=== PATIENT | female | born 1930 | race Caucasian/White ===

== ENCOUNTER → 2016-10-26 | Outpatient (CLI) | payer OTHER ==
[~2016-10-26] MED LIST: ACET-1256 PO; ASPCH81X PO; ATOR10TA88 PO; BENZ100C84 PO; CALC1TAB27 PO; CHOL1000 PO; CLR10 PO; CYAN100020 PO; GABA1CAP PO; GLUC10007 PO; IBUP-103 PO; MELATAB2 PO; NAPR1TAB9 PO; OMEG10007 PO; TRAZ50TA35 PO
[2016-10-26 17:27] LABS: BASO % 0.5 %; BASO ABS # 0.03 K/uL (0-0.2); COMPLETE YES; EOS % 4.9 %; HEMATOCRIT 39.6 % (37-47); IG% 0.2 %; LYMPH % 10.8 %; LYMPH ABS # 0.66 K/uL (1.2-3.4); MEAN CELL VOLUME 88.4 fL (80-100); MEAN CORPUSCULAR HGB CONC 35.1 g/dl (32-36); MEAN PLATELET VOLUME 10.9 fL (7.4-10.4); MONO % 8.7 %; NEUT % 74.9 %; PLATELET COUNT 156 K/uL (130-400); RED BLOOD COUNT 4.48 M/uL (4.2-5.4); WHITE BLOOD COUNT 6.09 K/uL (4.8-10.8)
[2016-10-26 17:38] LABS: ALT/SGPT 27 U/L (12-78); AST/SGOT 20 U/L (15-37); BLOOD UREA NITROGEN 18 mg/dl (7-18); BUN/CREATININE RATIO 20.8 (10-20); CALCIUM 8.9 mg/dl (8.5-10.1); CARBON DIOXIDE 28 mmol/L (21-32); CHLORIDE 104 mmol/L (98-107); CREATININE 0.85 mg/dl (0.60-1.20); GLUCOSE 76 mg/dl (70-99); SODIUM 141 mmol/L (136-145)
[2016-10-26 17:48] LABS: ALB/GLOB RATIO 1.5 (0.9-2); ALKALINE PHOSPHATASE 47 U/L (45-117); CHOLESTEROL 163 mg/dl (0-200); CHOLESTEROL/HDL RATIO 1.9; HDL CHOLESTEROL 86 mg/dl; LDL CHOLESTEROL CALCULATED 64 mg/dl; TRIGLYCERIDES 67 mg/dl (0-150); VERY LOW DENSITY LIPOPROT CALC 13 mg/dl
[2016-10-27 06:14] LABS: ESTIMATED AVERAGE GLUCOSE 114 mg/dl; HA1C FLAG Normal (Normal)
== END | disposition home or self-care (01) ==
LOC: C.LABBFT 10:25
PROVIDERS: ATTEND Internal Medicine
DX: R19.4 Change in bowel habit (principal); E78.00 Pure hypercholesterolemia, unspecified; R73.01 Impaired fasting glucose; K59.00 Constipation, unspecified

== ENCOUNTER 2016-12-08 17:24 | Emergency (ER) | payer OTHER ==
[~2016-12-08] VITALS: Ht 171.5 cm; Wt 70.0 kg
[~2016-12-08 17:24] MED LIST changes: -ACET-1256 PO; +ATOR10TA82 PO; -ATOR10TA88 PO
[2016-12-08 17:30] VITALS: Ht 171.5 cm; Wt 70.0 kg
[2016-12-08] MEDS ORDERED: XYLOCAINE 1%/SOD BICARB 20 ML VIAL INFIL ONE (17:45)
--- NOTE | 2016-12-08 18:03 | EMERGENCY ROOM VISIT NOTE ---
History Report prepared by Elliott: Robert Romano Under the Supervision of: Dr. Carolyn Godoy D.O. First contact with patient: 17:50 Chief Complaint: FALL Stated Complaint: FALL - BROKEN NOSE? CUTS ON FACE AND ELBOW History of Present Illness The patient is an 86 year old female who presents to the Emergency Room with complaints of a sudden fall that occurred prior to arrival today. She states that she was coming through a doorway in her barn, and her foot hit a trough on the ground for water to drain, and she fell face forward onto the ground. Per the patient's daughter, the patient was able to walk to the car to be driven here. The patient has lacerations on her face and bilateral elbows from the fall , as well as right knee pain. She denies any loss of consciousness, dizziness, grogginess, vision problems, ringing in ears, neck pain, back pain, abdominal pain, or rib pain. The patient does take baby aspirin daily, but no other blood thinners. Source of History: patient, family Onset: Prior to arrival today Position: other (global - fall) Timing: other (sudden) Associated Symptoms: No LOC, No abdominal pain, No back pain, No neck pain Note: Associated symptoms: Lacerations to face and bilateral elbows, right knee pain. Denies dizziness, grogginess, vision problems, ringing in ears, rib pain. Review of Systems See HPI for pertinent positives & negatives. A total of 10 systems reviewed and were otherwise negative. Past Medical & Surgical Medical Problems: (1) section (2) Hysterectomy (3) Shoulder surgery (4) TIA (transient ischemic attack) Family History Family history omitted secondary to advanced age. Social History Smoking Status: Never Smoker Drug Use: none Marital Status: Occupation Status: retired Current/Historical Medications Scheduled Aspirin (Aspirin Chewable), 81 MG PO QPM Atorvastatin (Lipitor), 10 MG PO QPM Vglzpfi-Eulcsgdrh-Yrcb (Calcium Magnesium & Zinc), 1 TAB PO QAM Cholecalciferol (Vitamin D3), 1 TAB PO QAM Cyanocobalamin (Vitamin B12), 1 TAB PO QAM Fish Oil ([place]-3), 1 CAP PO QAM Scheduled PRN Acetaminophen (Tylenol), 500 MG PO DIRECTED PRN for Pain Gabapentin (Neurontin), 1-2 TAB PO HS PRN for Pain Loratadine (Claritin), 10 MG PO DAILY PRN for ALLERGY Melatonin (Melatonin Maximum Strengt), 1 TAB PO HS PRN for Sleep Allergies Coded Allergies: No Known Allergies (Verified , 12/08/16) Physical Exam Vital Signs Date Time Temp Pulse Resp B/P Pulse Ox O2 Delivery O2 Flow Rate FiO2 12/08/16 20:10 36.6 63 18 160/83 99 12/08/16 17:30 36.6 63 18 160/83 99 Room Air Physical Exam GENERAL: alert, well appearing, well nourished, no distress, non-toxic EYE EXAM: normal conjunctiva, PERRL and EOM's grossly intact OROPHARYNX: abrasion at bridge of nose, bleeding controlled, no other facial tenderness, contusions, or swelling NECK: supple, no nuchal rigidity, no adenopathy, no midline tenderness, no step- offs, no evidence of trauma LUNGS: Clear to auscultation. Normal chest wall mechanics HEART: no murmurs, S1 normal and S2 normal ABDOMEN: abdomen soft, non-tender, normo-active bowel sounds, no masses, no rebound or guarding. BACK: Back is symmetrical on inspection and there is no deformity, no midline tenderness, no CVA tenderness. SKIN: no rashes and no bruising UPPER EXTREMITIES: abrasion on right elbow, full range of motion bilateral upper extremities, no joint effusions LOWER EXTREMITIES: small prepatellar contusion on right knee, full range of motion, no effusions or deformities NEURO EXAM: Normal sensorium, cranial nerves II-XII grossly intact, normal speech, no gross weakness of arms, no gross weakness of legs. No drift. Finger to nose intact. Gross sensation intact. Medical Decision & Procedures ER Provider Diagnostic Interpretation: Xray results per the radiologist and my interpretation. Other results have been interpreted by the radiologist and reviewed by me. PELVIS 1 OR 2 VIEW ROUTINE CLINICAL HISTORY: fall, trauma COMPARISON STUDY: Pelvis 11/30/2014. FINDINGS: Moderate bilateral hip osteoarthritis which has progressed. The sacrum appears intact. No acute fracture or dislocation within the pelvis or hips. IMPRESSION: Moderate bilateral hip osteoarthritis. No acute fracture or dislocation. Electronically signed by: Elan Julian M.D. 12/08/2016 7:14 PM Dictated Date/Time: 12/08/2016 7:[address] DOSE: HISTORY: fall, trauma TECHNIQUE: Multiaxial CT images of the maxillofacial region were performed and reformatted in the coronal plane without the use of contrast. COMPARISON: Sinus CT 02/09/2011. FINDINGS: Slightly displaced/depressed nasal bone fractures. There is nasal soft tissue swelling with a small soft tissue laceration. Stable defect within the right anterior lamina preparation. This is likely postsurgical. The mandible, pterygoid plates, zygomatic arches, skull base, and orbital floors are intact. Paranasal sinuses show no fluid levels. The mastoid air cells are clear. Punctate foreign body of the left supraorbital soft tissues. This is best in image 92 of 475. The globes and retrobulbar fat are intact. IMPRESSION: Nasal bone fractures. Punctate foreign body at the left supraorbital soft tissues. Electronically signed by: Elan Julian M.D. 12/08/2016 6:55 PM Dictated Date/Time: 12/08/2016 6:53 PM RIGHT KNEE 2 VIEWS HISTORY: Right knee pain. fall, trauma Right COMPARISON: None. FINDINGS: There is no fracture or dislocation. Chondrocalcinosis and mild osteoarthritis. The bones are osteopenic. No knee effusion. Prepatellar soft tissue swelling. No radiopaque foreign bodies. IMPRESSION: Prepatellar soft tissue swelling. No fractures. Electronically signed by: Elan Julian M.D. 12/08/2016 7:17 PM Dictated Date/Time: 12/08/2016 7:[address]AST CT DOSE: HISTORY: fall, trauma TECHNIQUE: Multiaxial CT images of the head were performed without the use of intravenous contrast. Automated exposure control was utilized for this study. Comparison: Head CT 11/30/2014. Findings: The paranasal sinuses and mastoid air cells are clear. The calvarium and skull base are intact. There is no mass, hematoma, midline shift, acute infarct. White matter hypodensity is nonspecific but suggestive of microvascular ischemic change. The ventricles and sulci demonstrate mild age-related involutional changes. Impression: No significant change compared to the prior study. No acute intracranial abnormality. Electronically signed by: Elan Julian M.D. 12/08/2016 6:49 PM Dictated Date/Time: 12/08/2016 6:46 PM RIGHT ELBOW 3 VIEWS HISTORY: fall, trauma Right COMPARISON: None. FINDINGS: There is no fracture or dislocation. No significant elbow effusion. Soft tissues are unremarkable. Mild chondrocalcinosis. No radiopaque foreign bodies. IMPRESSION: No fracture or dislocation within the right elbow. Electronically signed by: Elan Julian M.D. 12/08/2016 7:15 PM Dictated Date/Time: 12/08/2016 7:14 PM CHEST ONE VIEW PORTABLE HISTORY: fall, trauma COMPARISON: Chest 10/14/2015. FINDINGS: Old, healed right-sided rib fractures. No pneumothorax. No pleural effusions. The heart is mildly enlarged. There is mild diffuse interstitial thickening which is likely chronic. No focal lung consolidations to suggest pneumonia. IMPRESSION: 1. Mild enlargement of the cardiac silhouette. 2. Mild diffuse interstitial thickening is likely chronic. Electronically signed by: Elan Julian M.D. 12/08/2016 7:16 PM Dictated Date/Time: 12/08/2016 7:[address] DOSE: 965.33 mGy.cm HISTORY: fall, trauma TECHNIQUE: Multiaxial CT images of the cervical spine were performed and reformatted in the sagittal and coronal plane without the use of contrast. COMPARISON: None. FINDINGS: No fractures. No subluxation. Prevertebral soft tissues and the C1-C2 interval are intact. No pneumothorax. Moderate to severe degenerative disc disease seen from C3 through C7 with endplate osteophytes. There is fusion of the C3-C4 vertebral bodies and facets. IMPRESSION: No fractures within the cervical spine. Electronically signed by: Elan Julian M.D. 12/08/2016 6:53 PM Dictated Date/Time: 12/08/2016 6:49 PM Medications Administered Medications (Trade) Dose Ordered Sig/Clemente Route Start Time Stop Time Status Last Admin Dose Admin Diphtheria/ Pertussis/Tetanus Vacc (Adacel Inj) 0.5 ml ONCE ONCE IM. 12/08/16 18:15 12/08/16 18:16 DC 12/08/16 19:23 0.5 ML Acetaminophen (Tylenol Tab) 650 mg NOW STAT PO 12/08/16 19:44 12/08/16 19:45 DC 12/08/16 20:08 650 MG ED Course 1754: The patient was evaluated in room C11B. A complete history and physical exam was performed. 1815: Ordered Adacel Inj 0.5 ml IM. 1930: Upon reevaluation, the patient is resting comfortably. I discussed the findings and the treatment plan with the patient. She verbalizes agreement and understanding. She was discharged home. 1943: Ordered Tylenol Tab 650 mg PO. Medical Decision Differential diagnoses include: nasal bone fracture, traumatic intracranial hemorrhage, contusion, laceration. Pt well appearing here despite injuries. Low suspicion for additional occult traumatic chest/abd/pelvic/spine injuries. Pt with nonfocal neuro exam. Discussed f/u with ENT regarding nasal bone fractures. No other ICH or facial injuries. Pt aware of all findings. Discussed sx to watch/return for, f/u with PCP. Offered pain meds, pt declined would like to take tylenol. Discussed avoidance of activities which could contribute to additional injury. Impression Primary Impression: Head injury Additional Impressions: Nasal bone fx-closed Contusion Abrasion Skin tear Fall Contusion of multiple sites Scribe Attestation The scribe's documentation has been prepared under my direction and personally reviewed by me in its entirety. I confirm that the note above accurately reflects all work, treatment, procedures, and medical decision making performed by me. Departure Information Dispostion Home / Self-Care Referrals Magdy Ma M.D. (PCP) Isaías Oliva MD Patient Instructions My [facility] Additional Instructions Please rest and avoid heavy lifting/strenuous activity until you are feeling better. You may use tylenol as needed. Do not blow your nose. Please follow- up with your family doctor to recheck your condition and follow-up with the ENT doctor about your nasal bone fracture. If you have any worsening headache, dizziness, vision changes, nausea/vomiting, develop fevers, facial swelling, chest pain, trouble breathing, numbness/tingling, swelling at your joints, or you have any other new or concerning symptoms, please return to the ER immediately. You may continue your regular medicines as prescribed. Problem Qualifiers Primary Impression: Head injury Encounter type: initial encounter Qualified Codes: S09.90XA - Unspecified injury of head, initial encounter Additional Impressions: Nasal bone fx-closed Encounter type: initial encounter Qualified Codes: S02.2XXA - Fracture of nasal bones, initial encounter for closed fracture Contusion Encounter type: initial encounter Contusion area: head Contusion of head detail: nose Qualified Codes: S00.33XA - Contusion of nose, initial encounter Fall Encounter type: initial encounter Qualified Codes: W19.XXXA - Unspecified fall, initial encounter
[2016-12-08] MEDS ORDERED: DIPHTHERIA/TETANUS/PERTUSSIS 0.5 ML SYR/VIAL IM. ONE (18:15)
--- NOTE | 2016-12-08 18:51 | DIAGNOSTIC IMAGING REPORT ---
HEAD CT NONCONTRAST CT DOSE: HISTORY: fall, trauma TECHNIQUE: Multiaxial CT images of the head were performed without the use of intravenous contrast. Automated exposure control was utilized for this study. Comparison: Head CT 11/30/2014. Findings: The paranasal sinuses and mastoid air cells are clear. The calvarium and skull base are intact. There is no mass, hematoma, midline shift, acute infarct. White matter hypodensity is nonspecific but suggestive of microvascular ischemic change. The ventricles and sulci demonstrate mild age-related involutional changes. Impression: No significant change compared to the prior study. No acute intracranial abnormality. Electronically signed by: Elan Julian M.D. 12/08/2016 6:49 PM Dictated Date/Time: 12/08/2016 6:46 PM
--- NOTE | 2016-12-08 18:55 | DIAGNOSTIC IMAGING REPORT ---
CERVICAL SPINE CT CT DOSE: 965.33 mGy.cm HISTORY: fall, trauma TECHNIQUE: Multiaxial CT images of the cervical spine were performed and reformatted in the sagittal and coronal plane without the use of contrast. COMPARISON: None. FINDINGS: No fractures. No subluxation. Prevertebral soft tissues and the C1-C2 interval are intact. No pneumothorax. Moderate to severe degenerative disc disease seen from C3 through C7 with endplate osteophytes. There is fusion of the C3-C4 vertebral bodies and facets. IMPRESSION: No fractures within the cervical spine. Electronically signed by: Elan Julian M.D. 12/08/2016 6:53 PM Dictated Date/Time: 12/08/2016 6:49 PM
--- NOTE | 2016-12-08 18:58 | DIAGNOSTIC IMAGING REPORT ---
MAXILLOFACIAL CT CT DOSE: HISTORY: fall, trauma TECHNIQUE: Multiaxial CT images of the maxillofacial region were performed and reformatted in the coronal plane without the use of contrast. COMPARISON: Sinus CT 02/09/2011. FINDINGS: Slightly displaced/depressed nasal bone fractures. There is nasal soft tissue swelling with a small soft tissue laceration. Stable defect within the right anterior lamina preparation. This is likely postsurgical. The mandible, pterygoid plates, zygomatic arches, skull base, and orbital floors are intact. Paranasal sinuses show no fluid levels. The mastoid air cells are clear. Punctate foreign body of the left supraorbital soft tissues. This is best in image 92 of 475. The globes and retrobulbar fat are intact. IMPRESSION: Nasal bone fractures. Punctate foreign body at the left supraorbital soft tissues. Electronically signed by: Elan Julian M.D. 12/08/2016 6:55 PM Dictated Date/Time: 12/08/2016 6:53 PM
[2016-12-08] MEDS ORDERED: ACET-1256 PO (19:04)
--- NOTE | 2016-12-08 19:17 | DIAGNOSTIC IMAGING REPORT ---
PELVIS 1 OR 2 VIEW ROUTINE CLINICAL HISTORY: fall, trauma COMPARISON STUDY: Pelvis 11/30/2014. FINDINGS: Moderate bilateral hip osteoarthritis which has progressed. The sacrum appears intact. No acute fracture or dislocation within the pelvis or hips. IMPRESSION: Moderate bilateral hip osteoarthritis. No acute fracture or dislocation. Electronically signed by: Elan Julian M.D. 12/08/2016 7:14 PM Dictated Date/Time: 12/08/2016 7:12 PM
--- NOTE | 2016-12-08 19:18 | DIAGNOSTIC IMAGING REPORT ---
RIGHT ELBOW 3 VIEWS HISTORY: fall, trauma Right COMPARISON: None. FINDINGS: There is no fracture or dislocation. No significant elbow effusion. Soft tissues are unremarkable. Mild chondrocalcinosis. No radiopaque foreign bodies. IMPRESSION: No fracture or dislocation within the right elbow. Electronically signed by: Elan Julian M.D. 12/08/2016 7:15 PM Dictated Date/Time: 12/08/2016 7:14 PM
--- NOTE | 2016-12-08 19:19 | DIAGNOSTIC IMAGING REPORT ---
RIGHT KNEE 2 VIEWS HISTORY: Right knee pain. fall, trauma Right COMPARISON: None. FINDINGS: There is no fracture or dislocation. Chondrocalcinosis and mild osteoarthritis. The bones are osteopenic. No knee effusion. Prepatellar soft tissue swelling. No radiopaque foreign bodies. IMPRESSION: Prepatellar soft tissue swelling. No fractures. Electronically signed by: Elan Julian M.D. 12/08/2016 7:17 PM Dictated Date/Time: 12/08/2016 7:16 PM
--- NOTE | 2016-12-08 19:19 | DIAGNOSTIC IMAGING REPORT ---
CHEST ONE VIEW PORTABLE HISTORY: fall, trauma COMPARISON: Chest 10/14/2015. FINDINGS: Old, healed right-sided rib fractures. No pneumothorax. No pleural effusions. The heart is mildly enlarged. There is mild diffuse interstitial thickening which is likely chronic. No focal lung consolidations to suggest pneumonia. IMPRESSION: 1. Mild enlargement of the cardiac silhouette. 2. Mild diffuse interstitial thickening is likely chronic. Electronically signed by: Elan Julian M.D. 12/08/2016 7:16 PM Dictated Date/Time: 12/08/2016 7:15 PM
[2016-12-08] MEDS ORDERED: ACETAMINOPHEN 500 MG TAB PO STA (19:44)
[2016-12-08 20:10] VITALS: BP 160/83; PULSE 63; TEMP 36.6; O2SAT 99
== END 2016-12-08 20:11 | disposition home or self-care (01) ==
LOC: C.EDB 17:27 → C.EDC 20:11
DX: S02.2XXA Fracture of nasal bones, initial encounter for closed fracture (principal); S00.33XA Contusion of nose, initial encounter; S00.31XA Abrasion of nose, initial encounter; S80.01XA Contusion of right knee, initial encounter; S50.311A Abrasion of right elbow, initial encounter; W01.0XXA Fall on same level from slipping, tripping and stumbling without subsequent striking against object, initial encounter; Y92.71 Barn as the place of occurrence of the external cause; Z86.73 Personal history of transient ischemic attack (TIA), and cerebral infarction without residual deficits; Z79.82 Long term (current) use of aspirin; Z79.899 Other long term (current) drug therapy

== ENCOUNTER → 2016-12-14 | Outpatient (CLI) | payer OTHER ==
[~2016-12-14] MED LIST changes: +ACET-1256 PO; -BENZ100C84 PO; -GLUC10007 PO; -IBUP-103 PO; -NAPR1TAB9 PO; -TRAZ50TA35 PO
--- NOTE | 2016-12-14 10:04 | DIAGNOSTIC IMAGING REPORT ---
LEFT KNEE 2 VIEWS CLINICAL HISTORY: Left knee pain. FINDINGS: AP and crosstable lateral views of the left knee are obtained. No prior studies are available for comparison at the time of dictation. The skeletal structures are osteopenic. No fracture is seen. Mild to moderate tricompartmental degenerative joint space narrowing is noted, greatest at the patellofemoral articulation. There are small patellar enthesophytes as well as degenerative beaking of the tibial spine. Chondrocalcinosis is noted in the medial and lateral compartments. A joint effusion is identified. Mild soft tissue swelling is observed. Atherosclerotic calcification is noted in the popliteal artery. IMPRESSION: 1. Joint effusion and mild soft tissue swelling. No fracture is seen. 2. Osteopenia with degenerative change and chondrocalcinosis as above. Electronically signed by: Dusty Carballo M.D. 12/14/2016 10:02 AM Dictated Date/Time: 12/14/2016 10:00 AM
--- NOTE | 2016-12-14 10:06 | DIAGNOSTIC IMAGING REPORT ---
RIGHT HAND MIN 3 VIEWS ROUTINE CLINICAL HISTORY: Right hand pain following fall. COMPARISON: Right wrist radiographs September 18, 2007. FINDINGS: An old, healed distal right radial fracture is present. There is an old nonunited fracture of the ulnar styloid. There is an acute minimally displaced fracture of the base of the proximal phalanx of the right fifth finger with intra-articular extension. Radiocarpal joint space narrowing with chondrocalcinosis is noted. There is severe osteoarthritis within the distal interphalangeal joints of the second, third, fourth and fifth fingers. IMPRESSION: 1. Acute minimally displaced fracture of the base of the proximal phalanx of right fifth finger. 2. Old distal right radial and ulnar fractures. 3. Severe osteoarthritis within multiple articulations of the right hand. 4. Joint space narrowing with chondrocalcinosis within the TFCC which raises the possibility of CPPD arthropathy. Electronically signed by: Bakari Matthews M.D. 12/14/2016 10:03 AM Dictated Date/Time: 12/14/2016 10:00 AM
== END | disposition home or self-care (01) ==
LOC: C.RAD 09:23
PROVIDERS: ATTEND Nurse Practitioner
DX: M79.641 Pain in right hand (principal); M25.569 Pain in unspecified knee; W01.0XXA Fall on same level from slipping, tripping and stumbling without subsequent striking against object, initial encounter

== ENCOUNTER → 2017-01-03 | Outpatient (CLI) | payer OTHER | LOC: C.MAMM 13:17 | PROVIDERS: ATTEND Nurse Practitioner | DX: M81.0 Age-related osteoporosis without current pathological fracture (principal) ==

== ENCOUNTER → 2017-03-10 | Outpatient (CLI) | payer OTHER ==
[~2017-03-10] MED LIST changes: -ATOR10TA82 PO; +ATOR10TA88 PO
--- NOTE | 2017-03-10 15:06 | DIAGNOSTIC IMAGING REPORT ---
THORACIC SPINE 3 VIEWS ROUTINE CLINICAL HISTORY: 87 years-old Female presenting with low back pain. TECHNIQUE: Frontal and lateral views of the thoracic spine were obtained. COMPARISON: Correlation made to chest CT from 03/18/2015. FINDINGS: Multilevel degenerative changes of the thoracic spine primarily affecting the mid to lower thoracic region. Vertebral body heights and alignment are grossly maintained. No compression deformity or subluxation is radiographically evident. Cardiomediastinal silhouette normal. Visualized portion of the lungs and pleural spaces clear. IMPRESSION: No radiographic evidence of acute osseous injury of the thoracic spine. Multilevel degenerative changes. Electronically signed by: Jm Allen M.D. 03/10/2017 3:04 PM Dictated Date/Time: 03/10/2017 3:01 PM
--- NOTE | 2017-03-10 15:07 | DIAGNOSTIC IMAGING REPORT ---
L-SPINE MIN 4 VIEWS ROUTINE HISTORY: 87 years-old Female M54.5 Low back pain COMPARISON: Lumbar spine radiographs 10/10/2012 TECHNIQUE: 5 radiographic views of the lumbar spine. FINDINGS: There are 5 nonrib-bearing lumbar type vertebral segments. Convex left curvature of the lumbar spine redemonstrated. There is progressive bone demineralization from prior exam. Moderate degenerative changes involve the femoral acetabular joints bilaterally. Severe multilevel intervertebral disc space narrowing, endplate spurring and facet arthropathy is noted. There is unchanged compression deformity of the L1 vertebral body. 4 mm anterolisthesis of L4 on L5 is likely on a degenerative basis. There is no significant change from comparison study. Moderate volume of formed stool seen within the right hemicolon. IMPRESSION: 1. No acute fracture or dislocation identified. 2. Levoscoliosis. 3. Redemonstration of severe multilevel intervertebral disc space narrowing, spondylitic spurring and facet arthropathy with remote subtle compression deformity of the L1 vertebral body. The above report was generated using voice recognition software. It may contain grammatical, syntax or spelling errors. Electronically signed by: Perfecto Sam M.D. 03/10/2017 3:06 PM Dictated Date/Time: 03/10/2017 3:02 PM
== END | disposition home or self-care (01) ==
LOC: C.RAD1850 14:39
PROVIDERS: ATTEND Internal Medicine
DX: M54.5 Low back pain (principal)

== ENCOUNTER → 2017-06-22 | Outpatient (CLI) | payer OTHER ==
[~2017-06-22] MED LIST changes: +ATOR10TA82 PO; -ATOR10TA88 PO
--- NOTE | 2017-06-22 14:45 | DIAGNOSTIC IMAGING REPORT ---
Rj SALGADOT SHLDR,HIP,KNEE FLUOROSCOPY TIME: 16 seconds HISTORY: Chronic left hip pain.. PROCEDURE: After obtaining written informed consent, the patient was placed supine on the fluoroscopy table. A suitable site for needle insertion was marked using fluoroscopic guidance. The left hip was prepped and draped in the usual sterile fashion. 1% lidocaine was used for skin, subcutaneous and deep soft tissue anesthesia. Under intermittent fluoroscopic guidance, a 22 gauge x 3.5 inch spinal needle was inserted into the left femoral acetabular joint. 2 cc of Optiray 300 was injected to confirm the intra-articular location. This is followed by a mixture of 5cc of 0.5% bupivacaine and 2 cc of betamethasone at the request of the referring physician. The needle was then removed. There were no apparent complications. IMPRESSION: Fluoroscopic-guided left hip steroid injection without immediate complication. The above report was generated using voice recognition software. It may contain grammatical, syntax or spelling errors. Electronically signed by: Perfecto Sam M.D. 06/22/2017 2:44 PM Dictated Date/Time: 06/22/2017 2:43 PM
== END | disposition home or self-care (01) ==
LOC: C.RADBC 13:27
PROVIDERS: ATTEND Orthopaedic Surgery
DX: M16.12 Unilateral primary osteoarthritis, left hip (principal)

== ENCOUNTER → 2017-07-07 | Outpatient (CLI) | payer OTHER ==
--- NOTE | 2017-07-07 12:51 | DIAGNOSTIC IMAGING REPORT ---
CHEST 2 VIEWS ROUTINE HISTORY: 87 years-old Female J98.01 Acute [id number] acute cough with shortness of breath COMPARISON: Chest radiograph 12/08/2016, chest CT 03/18/2015 TECHNIQUE: PA and lateral views of the chest FINDINGS: Lungs are hyperinflated with diaphragmatic flattening. Cardiomediastinal and hilar silhouettes are within normal limits. There is no pneumothorax or pleural effusion. Reticular opacities, most pronounced within the lung bases are stable compatible with chronic changes. Dextroscoliosis of the thoracic spine is noted. There are postsurgical changes of the left humerus. Multilevel endplate spurring of the spine. IMPRESSION: Chronic changes without acute cardiopulmonary process. The above report was generated using voice recognition software. It may contain grammatical, syntax or spelling errors. Electronically signed by: Perfecto Sam M.D. 07/07/2017 12:49 PM Dictated Date/Time: 07/07/2017 12:47 PM
== END | disposition home or self-care (01) ==
LOC: C.RADBC 12:30
PROVIDERS: ATTEND Physician Assistant Medical
DX: J98.01 Acute bronchospasm (principal)

== ENCOUNTER → 2017-08-10 | Outpatient (CLI) | payer OTHER ==
[~2017-08-10] MED LIST changes: +ATRINS INH; +AZIT250T PO; +BENZ100C7 PO; +COUGH MEDICINE PO; +MELO7.5T5 PO; +PRVHFAIN INH; +SYMBICORT INH; +VFND200 PO; +VNTHFA/IN INH
--- NOTE | 2017-08-10 11:22 | DIAGNOSTIC IMAGING REPORT ---
(CHEST) THORAX WITHOUT CT DOSE: 373.33 mGycm CLINICAL HISTORY: 87 years-old Female with R05 [id number] Abnormal chest xrayPt is scheduled for hip surger. Acute cough . Pleural thickening or loculated fluid discussed on comparison chest radiographs TECHNIQUE: Multiaxial CT images of the chest were performed without contrast. A dose lowering technique was utilized adhering to the principles of ALARA. COMPARISON: CT chest 03/18/2015 chest radiographs 08/07/2017. FINDINGS: Thyroid is homogeneous. Calcified lymph nodes throughout the mediastinum and kashif suggest prior lumbar disc disease. Nonspecific mildly prominent left hilar and pretracheal lymph nodes measure up to 8 mm. A large subcarinal lymph node measures 1.2 x 1.4 cm. These findings appear generally stable from comparison study with moderate enlargement of the pretracheal lymph node, previous measuring 6 mm. These findings are nonspecific. Heart is normal in size with coronary arterial calcifications. Aortic annular calcifications also noted. No aortic aneurysm identified. Multifocal multilobar bilateral subpleural reticular opacities suggest areas of chronic fibrosis suggest likely progressed from comparison. There are patchy groundglass opacities noted throughout the right upper and lower lobes. There is opacification of the right middle lobe bronchus with complete collapse of the right middle lobe. This accounts for the finding seen on comparison radiographs. The main central airways are patent. No acute amount of the imaged upper abdomen. Colonic diverticulosis. Splenic parenchymal calcifications. Moderate atrophy of the left subscapularis musculature. No suspicious lytic or blastic bony lesions. IMPRESSION: 1. Opacification of the right middle lobe bronchus with complete collapse of the right middle lobe accounts for the finding seen on comparison chest radiographs. Correlation with bronchoscopy recommended to exclude obstructing endobronchial lesion. 2. Patchy groundglass opacities of the right upper and lower lobes suggests infectious or inflammatory pneumonitis. 3. Progressive bilateral multilobar distribution of subpleural reticulation suggests fibrotic lung disease. 4. Prior granulomatous disease. Electronically signed by: Perfecto Sam M.D. 08/10/2017 11:21 AM Dictated Date/Time: 08/10/2017 11:09 AM
== END | disposition home or self-care (01) ==
LOC: C.CTS 10:33
PROVIDERS: ATTEND Nurse Practitioner
DX: R91.8 Other nonspecific abnormal finding of lung field (principal); R05 Cough; R93.8 Abnormal findings on diagnostic imaging of other specified body structures

== ENCOUNTER 2017-08-11 13:54 | Inpatient (IN) | payer OTHER ==
[~2017-08-11] VITALS: Ht 170.2 cm; Wt 70.7 kg
[~2017-08-11 13:54] MED LIST changes: -ATRINS INH; -AZIT250T PO; -BENZ100C7 PO; -VFND200 PO; -VNTHFA/IN INH
[2017-08-11] MEDS ORDERED: IPRATROPIUM BROMIDE NEB SOLN 0.02% 2.5 ML VIAL INH STA (14:09)
[2017-08-11] MEDS ORDERED: CEFEPIME IV 2,000 MG in DEXTROSE 5% 100ML 100 ML IV STA (14:09)
[2017-08-11] MEDS ORDERED: LEVALBUTEROL 1.25MG/0.5ML NEB INH STA (14:09)
--- NOTE | 2017-08-11 14:23 | EMERGENCY ROOM VISIT NOTE ---
History Report prepared by Elliott: Adriel Enrique Under the Supervision of: Dr. Dusty Kinney M.D. First contact with patient: 14:05 Chief Complaint: SHORTNESS OF BREATH Stated Complaint: LUNGS/SHORT OF BREATH/ PAINFUL! History of Present Illness The patient is a 87 year old female who presents to the Emergency Room with complaints of worsening shortness of breath beginning five weeks ago. She also complains of right chest pain and cough. The patient has been seen by her PCP for her symptoms several times within the past few weeks. She notes that she received a chest CT two days ago. She called her PCP today and was advised to present to the ED for evaluation. The patient was previously on antibiotics three weeks ago for her symptoms. She was on steroids during the first week of her illness as well. The patient denies any fevers, chills, or diaphoresis. She has had a decreased appetite recently. Source of History: patient Onset: Five weeks ago Quality: other (shortness of breath) Timing: other (persistent) Associated Symptoms: + cough, + chest pain (right), No fevers, No chills, No diaphoresis Review of Systems See HPI for pertinent positives & negatives. A total of 10 systems reviewed and were otherwise negative. Past Medical & Surgical Medical Problems: (1) section (2) Hysterectomy (3) Shoulder surgery (4) TIA (transient ischemic attack) Family History No pertinent family history stated. Social History Smoking Status: Never Smoker Drug Use: none Marital Status: Occupation Status: retired Current/Historical Medications Scheduled Albuterol (Ventolin Hfa), 2 PUFFS INH PRN Aspirin (Aspirin Chewable), 81 MG PO QPM Atorvastatin (Lipitor), 10 MG PO QPM Tdkjcxf-Dcinnrsei-Wpmk (Calcium Magnesium & Zinc), 1 TAB PO NOON Cholecalciferol (Vitamin D3), 1 TAB PO QAM Cyanocobalamin (Vitamin B12), 1 TAB PO QAM Fish Oil (Hemphill-3), 1 CAP PO QAM Gabapentin (Neurontin), 400 MG PO HS Meloxicam (Mobic), 7.5 MG PO QAM Scheduled PRN Acetaminophen (Tylenol), 500 MG PO DIRECTED PRN for Pain Albuterol Hfa (Ventolin Hfa), 2 PUFFS INH QID PRN for SOB/Wheezing Benzonatate (Benzonatate), 1-2 CAP PO TID PRN for Cough Loratadine (Claritin), 10 MG PO DAILY PRN for ALLERGY Melatonin (Melatonin Maximum Strengt), 1 TAB PO HS PRN for Sleep Allergies Coded Allergies: No Known Allergies (Verified , 08/11/17) Physical Exam Vital Signs Date Time Temp Pulse Resp B/P (MAP) Pulse Ox O2 Delivery O2 Flow Rate FiO2 08/11/17 17:42 72 23 94 Room Air 08/11/17 17:31 165/89 08/11/17 17:12 70 16 94 Room Air 08/11/17 17:07 72 18 95 Room Air 08/11/17 17:02 155/95 08/11/17 16:50 75 24 94 Room Air 08/11/17 16:31 151/91 08/11/17 16:20 78 23 94 Room Air 08/11/17 16:15 76 21 95 Room Air 08/11/17 16:01 158/82 08/11/17 15:45 69 17 94 Room Air 08/11/17 15:32 163/82 08/11/17 15:25 173/89 08/11/17 15:23 76/68 08/11/17 15:10 68 20 134/76 96 Room Air 08/11/17 15:06 65 08/11/17 14:40 64 16 96 Room Air 08/11/17 14:10 94 Room Air 08/11/17 14:02 36.5 67 20 158/92 96 Room Air Physical Exam GENERAL: Patient is in no acute distress. HEENT: No acute trauma, normocephalic atraumatic, mucous membranes moist, no nasal congestion, no scleral icterus. NECK: No stridor, no adenopathy, no meningismus, trachea is midline. LUNGS: Wheezing and rhonchi on the right. Left lung fairly clear. Moist cough noted. No respiratory distress. HEART: Without murmurs gallops or rubs, regular rate and rhythm. ABDOMEN: Soft, nontender, bowel sounds positive, no hernias, no peritonitis. EXTREMITIES: No cyanosis or edema, full range of motion of all the joints without pain or difficulty, no signs for acute trauma. NEUROLOGIC: Oriented x 3, no acute motor or sensory deficits, no focal weakness. SKIN: No rash, no jaundice, no diaphoresis. Medical Decision & Procedures ER Provider Diagnostic Interpretation: Radiology results as stated below per my review and radiologist interpretation: (CHEST) THORAX WITHOUT (08/10/2017 - Yesterday) FINDINGS: Thyroid is homogeneous. Calcified lymph nodes throughout the mediastinum and kashif suggest prior lumbar disc disease. Nonspecific mildly prominent left hilar and pretracheal lymph nodes measure up to 8 mm. A large subcarinal lymph node measures 1.2 x 1.4 cm. These findings appear generally stable from comparison study with moderate enlargement of the pretracheal lymph node, previous measuring 6 mm. These findings are nonspecific. Heart is normal in size with coronary arterial calcifications. Aortic annular calcifications also noted. No aortic aneurysm identified. Multifocal multilobar bilateral subpleural reticular opacities suggest areas of chronic fibrosis suggest likely progressed from comparison. There are patchy groundglass opacities noted throughout the right upper and lower lobes. There is opacification of the right middle lobe bronchus with complete collapse of the right middle lobe. This accounts for the finding seen on comparison radiographs. The main central airways are patent. No acute amount of the imaged upper abdomen. Colonic diverticulosis. Splenic parenchymal calcifications. Moderate atrophy of the left subscapularis musculature. No suspicious lytic or blastic bony lesions. IMPRESSION: 1. Opacification of the right middle lobe bronchus with complete collapse of the right middle lobe accounts for the finding seen on comparison chest radiographs. Correlation with bronchoscopy recommended to exclude obstructing endobronchial lesion. 2. Patchy groundglass opacities of the right upper and lower lobes suggests infectious or inflammatory pneumonitis. 3. Progressive bilateral multilobar distribution of subpleural reticulation suggests fibrotic lung disease. 4. Prior granulomatous disease. Electronically signed by: Perfecto Sam M.D. 08/10/2017 11:21 AM CHEST ONE VIEW PORTABLE FINDINGS: Cardiomediastinal silhouette normal. Previous study demonstrated right middle lobe collapse better appreciated on prior CT from 08/10/2017. Degenerative changes of the thoracic spine. 2 fixation anchors noted in the left humeral head. Upper abdomen normal. IMPRESSION: 1. No acute cardiopulmonary disease. Electronically signed by: Jm Allen M.D. 08/11/2017 2:38 PM Laboratory Results 08/11/17 14:38 Red Blood Count 4.17, Mean Corpuscular Volume 91.1, Mean Corpuscular Hemoglobin 31.7, Mean Corpuscular Hemoglobin Concent 34.7, Mean Platelet Volume 10.6, Neutrophils (%) (Auto) 38.6, Lymphocytes (%) (Auto) 26.4, Monocytes (%) (Auto) 7.8, Eosinophils (%) (Auto) 26.1, Basophils (%) (Auto) 0.8, Neutrophils # (Auto ) 1.54, Lymphocytes # (Auto) 1.05, Monocytes # (Auto) 0.31, Eosinophils # (Auto ) 1.04, Basophils # (Auto) 0.03 08/11/17 14:38 Test 08/11/17 14:28 08/11/17 14:38 Influenza Type A Antigen Neg for Influ A (NEG) Influenza Type B Antigen Neg for Influ B (NEG) White Blood Count 3.98 K/uL (4.8-10.8) Red Blood Count 4.17 M/uL (4.2-5.4) Hemoglobin 13.2 g/dL (12.0-16.0) Hematocrit 38.0 % (37-47) Mean Corpuscular Volume 91.1 fL (80-100) Mean Corpuscular Hemoglobin 31.7 pg (25-34) Mean Corpuscular Hemoglobin Concent 34.7 g/dl (32-36) Platelet Count 145 K/uL (130-400) Mean Platelet Volume 10.6 fL (7.4-10.4) Neutrophils (%) (Auto) 38.6 % Lymphocytes (%) (Auto) 26.4 % Monocytes (%) (Auto) 7.8 % Eosinophils (%) (Auto) 26.1 % Basophils (%) (Auto) 0.8 % Neutrophils # (Auto) 1.54 K/uL (1.4-6.5) Lymphocytes # (Auto) 1.05 K/uL (1.2-3.4) Monocytes # (Auto) 0.31 K/uL (0.11-0.59) Eosinophils # (Auto) 1.04 K/uL (0-0.5) Basophils # (Auto) 0.03 K/uL (0-0.2) RDW Standard Deviation 44.5 fL (36.4-46.3) RDW Coefficient of Variation 13.5 % (11.5-14.5) Immature Granulocyte % (Auto) 0.3 % Immature Granulocyte # (Auto) 0.01 K/uL (0.00-0.02) Prothrombin Time 10.2 SECONDS (9.0-12.0) Prothromb Time International Ratio 1.0 (0.9-1.1) Activated Partial Thromboplast Time 23.6 SECONDS (21.0-31.0) Partial Thromboplastin Ratio 0.9 Anion Gap 6.0 mmol/L (3-11) Est Creatinine Clear Calc Drug Dose 45.8 ml/min Estimated GFR () 74.6 Estimated GFR (Non- 64.4 BUN/Creatinine Ratio 19.8 (10-20) Calcium Level 9.1 mg/dl (8.5-10.1) Magnesium Level 2.2 mg/dl (1.8-2.4) Total Bilirubin 0.4 mg/dl (0.2-1) Aspartate Amino Transf (AST/SGOT) 17 U/L (15-37) Alanine Aminotransferase (ALT/SGPT) 23 U/L (12-78) Alkaline Phosphatase 49 U/L (45-117) Troponin I < 0.015 ng/ml (0-0.045) Pro-B-Type Natriuretic Peptide 289 pg/ml (0-1800) Total Protein 6.6 gm/dl (6.4-8.2) Albumin 3.9 gm/dl (3.4-5.0) Globulin 2.7 gm/dl (2.5-4.0) Albumin/Globulin Ratio 1.5 (0.9-2) Laboratory results reviewed by me. Medications Administered Medications (Trade) Dose Ordered Sig/Clemente Route Start Time Stop Time Status Last Admin Dose Admin Cefepime HCl 2000 mg/Dextrose 112.5 ml @ 200 mls/hr ONE STAT IV 08/11/17 14:09 08/11/17 14:42 DC 08/11/17 14:59 200 MLS/HR Levalbuterol (Xopenex 1.25MG/ 0.5ML Neb) 1.25 mg NOW STAT INH 08/11/17 14:09 08/11/17 14:16 DC 08/11/17 14:38 1.25 MG Ipratropium Humble (Atrovent 0.02% 0.5MG/2.5ML Neb) 0.5 mg NOW STAT INH 08/11/17 14:09 08/11/17 14:16 DC 08/11/17 14:38 0.5 MG ECG Indication: SOB/dyspnea Rate (beats per minute): 64 Rhythm: sinus rhythm Findings: 1st degree AV block, no acute ischemic change, no ectopy ED Course 1406: The patient was evaluated in room C11B. A complete history and physical exam was performed. 1409: Ordered Atrovent 0.02% 0.5 mg/2.5 mL Neb 0.5 mg INH, Xopenex 1.25 mg/0.5 mL Neb 1.25 mg INH, Cefepime HCl 2000 mg/Dextrose 112.5 mL @ 200 mL/hr IV. 1525: Upon reexamination the patient is resting comfortably. I discussed results and treatment plan with the patient. She verbalizes agreement and understanding. I spoke with Dr. Romina EGAN Hospitalist Service. We discussed the patient's results and findings. The patient will be evaluated by [facility] for further management. Medical Decision The patient is a 87 year old female who presents to the ED with complaints of shortness of breath beginning five weeks ago. Differential diagnoses considered include pneumonia, bronchitis, malignancy, failed outpatient treatment, cardiac ischemia, anemia and electrolyte imbalance. There is no leukocytosis or concerning anemia. No significant electrolyte abnormality, kidney failure, hepatitis. There is no coagulopathy. Influenza testing is negative. Blood cultures are pending. EKG shows a sinus rhythm, no acute ischemia. Cardiac enzyme testing times one is not consistent with acute cardiac injury. Chest film does not show any obvious pneumonia or CHF. On review of the CT of the chest from yesterday, she has some right lung collapse and pneumonitis as well as some bronchial congestion. Malignancy underlying was raised as a possibility. The patient has been sick for over 1 month. She is failing outpatient treatment. She has been on antibiotics and steroids. I think a hospital stay is warranted. She needs a pulmonary consult and likely a bronchoscopy. The patient was given a DuoNeb, she received IV antibiotics. I did speak with the patient and case management. The on-call hospitalist was consulted. Medication Reconcilliation Current Medication List: was personally reviewed by me Blood Pressure Screening Patient's blood pressure: Elevated blood pressure Blood pressure disposition: Elevated BP felt to be situational Consults Time Called: 1520 Consulting Physician: Dr. Romina Joseph [facility] Returned Call: 1525 Discussed the patient's case. The patient will be evaluated for further management. Impression Primary Impression: Pneumonia Additional Impressions: Lung collapse Failure of outpatient treatment Scribe Attestation The scribe's documentation has been prepared under my direction and personally reviewed by me in its entirety. I confirm that the note above accurately reflects all work, treatment, procedures, and medical decision making performed by me. Departure Information Dispostion Being Evaluated By Hospitalist Referrals Ora Matthews M.D. (PCP) Patient Instructions My [facility] Problem Qualifiers
--- NOTE | 2017-08-11 14:39 | DIAGNOSTIC IMAGING REPORT ---
CHEST ONE VIEW PORTABLE CLINICAL HISTORY: 87 years-old Female presenting with EVALUATE RESPIRATORY DISTRESS.DYSPNEA. TECHNIQUE: Portable upright AP view of the chest was obtained. COMPARISON: 08/07/2017. FINDINGS: Cardiomediastinal silhouette normal. Previous study demonstrated right middle lobe collapse better appreciated on prior CT from 08/10/2017. Degenerative changes of the thoracic spine. 2 fixation anchors noted in the left humeral head. Upper abdomen normal. IMPRESSION: 1. No acute cardiopulmonary disease. Electronically signed by: Jm Allen M.D. 08/11/2017 2:38 PM Dictated Date/Time: 08/11/2017 2:26 PM
[2017-08-11 14:40] VITALS: PULSE 64; O2SAT 96
[2017-08-11 14:53] LABS: BASO % 0.8 %; BASO ABS # 0.03 K/uL (0-0.2); EOS % 26.1 %; EOS ABS # 1.04 K/uL (0-0.5); HEMOGLOBIN 13.2 g/dL (12.0-16.0); IG# 0.01 K/uL (0.00-0.02); LYMPH % 26.4 %; LYMPH ABS # 1.05 K/uL (1.2-3.4); MEAN CELL VOLUME 91.1 fL (80-100); MEAN CORPUSCULAR HEMOGLOBIN 31.7 pg (25-34); MEAN CORPUSCULAR HGB CONC 34.7 g/dl (32-36); MEAN PLATELET VOLUME 10.6 fL (7.4-10.4); MONO % 7.8 %; MONO ABS # 0.31 K/uL (0.11-0.59); NEUT % 38.6 %; NEUT ABS # 1.54 K/uL (1.4-6.5); PLATELET COUNT 145 K/uL (130-400); RED CELL DISTRIBUTION WIDTH CV 13.5 % (11.5-14.5); RED CELL DISTRIBUTION WIDTH SD 44.5 fL (36.4-46.3); WHITE BLOOD COUNT 3.98 K/uL (4.8-10.8)
[2017-08-11] MEDS ORDERED: BENZ100C7 PO (14:58)
[2017-08-11] MEDS ORDERED: VNTHFA/IN INH (14:58)
[2017-08-11 15:01] LABS: PTT PATIENT 23.6 SECONDS (21.0-31.0)
[2017-08-11 15:12] LABS: ALBUMIN 3.9 gm/dl (3.4-5.0); ALT/SGPT 23 U/L (12-78); BLOOD UREA NITROGEN 16 mg/dl (7-18); CALCIUM 9.1 mg/dl (8.5-10.1); CARBON DIOXIDE 27 mmol/L (21-32); CREATININE 0.81 mg/dl (0.60-1.20); GLUCOSE 79 mg/dl (70-99); POTASSIUM 4.4 mmol/L (3.5-5.1); SODIUM 135 mmol/L (136-145)
[2017-08-11 15:14] LABS: INFLUENZA B ANTIGEN Neg for Influ B (NEG)
[2017-08-11 15:17] LABS: ALKALINE PHOSPHATASE 49 U/L (45-117); AST/SGOT 17 U/L (15-37); TOTAL PROTEIN 6.6 gm/dl (6.4-8.2)
[2017-08-11] MEDS ORDERED: ALUMINUM/MAGNESIUM/SIMETH (MAALOX MAX) 30 ML UDC PO PRN (21:15)
[2017-08-11] MEDS ORDERED: ZOLPIDEM TARTRATE 5 MG TAB PO PRN ×2 (21:15)
[2017-08-11] MEDS ORDERED: MAGNESIUM HYDROXIDE SUSP 30 ML UDC PO PRN (21:15)
--- NOTE | 2017-08-11 21:48 | History and Physical ---
History & Physical Date & Time of Service: Aug 11, 2017 at 21:28 Chief Complaint: Lungs/Short Of Breath/ Painful! Primary Care Physician: Ora Matthews M.D. History of Present Illness Source: patient 87 years old female presented to the ED with progressive shortness of breath and productive cough for the past 5 weeks. as outpatient she received steroids, and one round of antibiotic, she thinks it might be levofloxacin that ended 3 weeks ago. She has intermittent scant yellowish sputum but mainly her cough is dry Her symptoms continued to progress. Prompted her to have a CAT scan chest ordered by her PCP. After receiving the results recommended that she come to the ER. CT showed consolidation/partial collapse of right lung / ground glass opacity / stigmata of previous granulomatous disease. Patient said that she has some pain on the right lower chest for the past 2 weeks. Intermittent mild in nature. Denies any fever or chills Denies hemoptysis Patient has an unusual broad exposure. Her worked in [employer]. She visited more than 10 different countries. She lived in multiple countries in [place] and [place]. She also has 2 horses at home. Denies smoking Drinks alcohol almost daily Currently lives by herself Past Medical/Surgical History Medical Problems: (1) section Status: Resolved (2) Hysterectomy Status: Resolved (3) Shoulder surgery Status: Resolved (4) TIA (transient ischemic attack) Status: Resolved Social History Smoking Status: Never Smoker Drug Use: none Marital Status: Occupational Status: retired Immunizations History of Influenza Vaccine: Yes Influenza Vaccine Date: Jun 18, 2013 History of Tetanus Vaccine?: Unknown Tetanus Immunization Date: Sep 20, 2004 History of Pneumococcal: Yes Pneumococcal Date: Jul 19, 2011 History of Hepatitis B Vaccine: Unknown Multi-Drug Resistant Organisms History of MDRO: No Allergies Coded Allergies: No Known Allergies (Verified , 08/11/17) Home Medications Scheduled Albuterol (Ventolin Hfa), 2 PUFFS INH PRN Aspirin (Aspirin Chewable), 81 MG PO QPM Atorvastatin (Lipitor), 10 MG PO QPM Yyolrvo-Iuvzlloqy-Gfhc (Calcium Magnesium & Zinc), 1 TAB PO NOON Cholecalciferol (Vitamin D3), 1 TAB PO QAM Cyanocobalamin (Vitamin B12), 1 TAB PO QAM Fish Oil ([place]-3), 1 CAP PO QAM Gabapentin (Neurontin), 400 MG PO HS Meloxicam (Mobic), 7.5 MG PO QAM Scheduled PRN Acetaminophen (Tylenol), 500 MG PO DIRECTED PRN for Pain Albuterol Hfa (Ventolin Hfa), 2 PUFFS INH QID PRN for SOB/Wheezing Benzonatate (Benzonatate), 1-2 CAP PO TID PRN for Cough Loratadine (Claritin), 10 MG PO DAILY PRN for ALLERGY Melatonin (Melatonin Maximum Strengt), 1 TAB PO HS PRN for Sleep Review of Systems Constitutional: No fever, No chills, No sweats, No weight loss, No weakness, No fatigue, No problem reported Eyes: No worsening of vision, No eye pain, No redness, No discharge, No diplopia, No problem reported ENT: No hearing loss, No unusual epistaxis, No nasal symptoms, No sore throat, No tinnitus, No dental problems, No trouble swallowing, No problem reported Respiratory: + cough, + sputum, + shortness of breath, + dyspnea on exertion, No wheezing, No dyspnea at rest, No hemoptysis, No problem reported Cardiovascular: No chest pain, No orthopnea, No PND, No edema, No claudication , No palpitations, No problem reported Abdomen: No pain, No nausea, No vomiting, No diarrhea, No constipation, No GI bleeding, No problem reported Musculoskeletal: No joint pain, No muscle pain, No swelling, No calf pain, No problem reported Genitourinary - Female: No dysuria, No urinary frequency, No urinary urgency, No urinary incontinence, No urinary retention, No hematuria, No dysmenorrhea, No menorrhagia, No metrorrhagia, No rash, No vaginal bleeding, No vaginal discharge, No vaginal itching, No vulvodynia, No , No problem reported Neurologic: No memory loss, No paralysis, No weakness, No numbness/tingling, No vertigo, No balance problems, No problem reported Psychiatric: No depression symptoms, No anhedonism, No anxiety, No insomnia, No substance abuse, No problem reported Endocrine: No fatigue, No excessive thirst, No excessive urination, No problem reported Hematologic / Lymphatic: No abnormal bleeding/bruising, No clotting problems, No swollen lymph nodes, No night sweats, No problem reported Integumentary: No rash, No itch, No new/changing skin lesions, No color change , No bleeding, No problem reported Allergic / Immunologic: No environmental allergies, No seasonal allergies, No pet sensitivities, No food allergies, No hives, No frequent infections, No poor healing, No prolonged convalescence, No problem reported Physical Exam Vital Signs Date Time Temp Pulse Resp B/P (MAP) Pulse Ox O2 Delivery O2 Flow Rate FiO2 08/11/17 20:59 79 15 152/93 96 Room Air 08/11/17 19:17 85 08/11/17 19:01 73 20 162/100 94 Room Air 08/11/17 18:17 77 27 94 Room Air 08/11/17 18:02 166/121 08/11/17 17:42 72 23 94 Room Air 08/11/17 17:31 165/89 08/11/17 17:12 70 16 94 Room Air 08/11/17 17:07 72 18 95 Room Air 08/11/17 17:02 155/95 08/11/17 16:50 75 24 94 Room Air 08/11/17 16:31 151/91 08/11/17 16:20 78 23 94 Room Air 08/11/17 16:15 76 21 95 Room Air 08/11/17 16:01 158/82 08/11/17 15:45 69 17 94 Room Air 08/11/17 15:32 163/82 08/11/17 15:25 173/89 08/11/17 15:23 76/68 08/11/17 15:10 68 20 134/76 96 Room Air 08/11/17 15:06 65 08/11/17 14:40 64 16 96 Room Air 08/11/17 14:10 94 Room Air 08/11/17 14:02 36.5 67 20 158/92 96 Room Air General Appearance: WD/WN, no apparent distress Head: normocephalic, atraumatic Eyes: normal inspection, EOMI ENT: normal ENT inspection, hearing grossly normal Neck: supple Respiratory/Chest: chest non-tender, normal breath sounds, + crackles, + rhonchi Cardiovascular: regular rate, rhythm, no edema, no gallop, no JVD, no murmur, normal peripheral pulses Abdomen/GI: normal bowel sounds, non tender, soft, no organomegaly, no pulsatile mass Back: normal inspection, no CVA tenderness, no muscle spasm Extremities/Musculoskelatal: normal inspection, no calf tenderness, normal capillary refill, no pedal edema, normal range of motion Neurologic/Psych: taproom attendant II-XII nml as tested, no motor/sensory deficits, alert, normal mood/affect, normal reflexes, oriented x 3 Skin: normal color, warm/dry, no rash Diagnostics Laboratory Results Results Past 24 Hours Test 08/11/17 14:28 08/11/17 14:38 08/11/17 21:19 Range/Units Influenza Type A Antigen Neg for Influ A NEG Influenza Type B Antigen Neg for Influ B NEG White Blood Count 3.98 4.8-10.8 K/uL Red Blood Count 4.17 4.2-5.4 M/uL Hemoglobin 13.2 12.0-16.0 g/dL Hematocrit 38.0 37-47 % Mean Corpuscular Volume 91.1 80-100 fL Mean Corpuscular Hemoglobin 31.7 25-34 pg Mean Corpuscular Hemoglobin Concent 34.7 32-36 g/dl Platelet Count 145 130-400 K/uL Mean Platelet Volume 10.6 7.4-10.4 fL Neutrophils (%) (Auto) 38.6 % Lymphocytes (%) (Auto) 26.4 % Monocytes (%) (Auto) 7.8 % Eosinophils (%) (Auto) 26.1 % Basophils (%) (Auto) 0.8 % Neutrophils # (Auto) 1.54 1.4-6.5 K/uL Lymphocytes # (Auto) 1.05 1.2-3.4 K/uL Monocytes # (Auto) 0.31 0.11-0.59 K/uL Eosinophils # (Auto) 1.04 0-0.5 K/uL Basophils # (Auto) 0.03 0-0.2 K/uL RDW Standard Deviation 44.5 36.4-46.3 fL RDW Coefficient of Variation 13.5 11.5-14.5 % Immature Granulocyte % (Auto) 0.3 % Immature Granulocyte # (Auto) 0.01 0.00-0.02 K/uL Prothrombin Time 10.2 9.0-12.0 SECONDS Prothromb Time International Ratio 1.0 0.9-1.1 Activated Partial Thromboplast Time 23.6 21.0-31.0 SECONDS Partial Thromboplastin Ratio 0.9 Sodium Level 135 136-145 mmol/L Potassium Level 4.4 3.5-5.1 mmol/L Chloride Level 102 98-107 mmol/L Carbon Dioxide Level 27 21-32 mmol/L Anion Gap 6.0 3-11 mmol/L Blood Urea Nitrogen 16 7-18 mg/dl Creatinine 0.81 0.60-1.20 mg/dl Est Creatinine Clear Calc Drug Dose 45.8 ml/min Estimated GFR () 74.6 Estimated GFR (Non- 64.4 BUN/Creatinine Ratio 19.8 10-20 Random Glucose 79 70-99 mg/dl Calcium Level 9.1 8.5-10.1 mg/dl Magnesium Level 2.2 1.8-2.4 mg/dl Total Bilirubin 0.4 0.2-1 mg/dl Aspartate Amino Transf (AST/SGOT) 17 15-37 U/L Alanine Aminotransferase (ALT/SGPT) 23 12-78 U/L Alkaline Phosphatase 49 45-117 U/L Troponin I < 0.015 0-0.045 ng/ml Pro-B-Type Natriuretic Peptide 289 0-1800 pg/ml Total Protein 6.6 6.4-8.2 gm/dl Albumin 3.9 3.4-5.0 gm/dl Globulin 2.7 2.5-4.0 gm/dl Albumin/Globulin Ratio 1.5 0.9-2 Microbiology Results 08/11/17 Blood Culture, Ordered Pending 08/11/17 Blood Culture, Ordered Pending 08/11/17 Blood Culture, Received Pending 08/11/17 Blood Culture, Received Pending Impression Assessment and Plan 87-year-old female presented to the ED with non-resolving right-sided pneumonia with CAT scan finding of Opacification of the right middle lobe bronchus with complete collapse of the right middle lobe, ground glass opacity RLL, fibrotic lung disease/ granulomatous underlying disease Assessment Abnormal CAT scan findings; right middle bronchus by CT with right middle lobe collapse/groundglass opacity right lower lobe/fibrotic and granulomatous lung disease Since patient does not look toxic, no leukocytosis, no fever, no tachycardia We'll hold off antibiotics until we get good cultures possibly from bronchoscopy Last antibiotic was taken as an outpatient 3 weeks ago, possibly received 1 dose of antibiotic in ED but will hold on any further antibiotics Due to her unusual exposure [place] and unusual presentation, will order sputum culture/blood culture We'll also order fungal sputum smear/culture, fungi tell, D galactomannan in urine rule out underlying fungal disease Will also older sputum AFB for 2 reasons she has the right exposure and she has an underlying granulomatous scarring in the lung, and other reason if she has currently lung mass or any immune compromised factor that might lead to activation of any previous TB that was dormant We'll keep her on airborne isolation for safety of staff although my suspicion is low We'll also order urine Legionella/urine strep Other components on the differential are actinomyces, Rhodococcus equi pneumonia , Mycobacterium avium complex lung disease We'll order infectious disease consult And gill net stringer consult for possible bronchoscopy Continue patient's Lipitor but hold her aspirin for potential bronchoscopy and biopsy Bronchodilators DVT prophylaxis with heparin Continue supportive care Resuscitation Status FULL RESUSCITATION VTE Prophylaxis VTE Risk Assessment Done? Y/N: Yes Risk Level: Moderate
[2017-08-11] MEDS: HEPARIN SOD 5000 UNIT/0.5 ML CARP SQ SCH (22:00)
[2017-08-11 22:32] VITALS: BP 164/74; PULSE 72; TEMP 36.9; O2SAT 95; Ht 170.2 cm; Wt 70.7 kg
[2017-08-11] MEDS ORDERED: LORATADINE 10 MG TAB PO PRN (22:45)
[2017-08-11] MEDS ORDERED: ALBUTEROL HFA 8 GM INHALER INH PRN (22:45)
[2017-08-11] MEDS: SODIUM CHLORIDE 0.9% 1000ML 1,000 ML IV SCH (23:38)
[2017-08-12] VITALS (10 sets, daily range): BP systolic 99–145; BP diastolic 42–76; PULSE 54–82; TEMP 36.5–36.8; O2SAT 92–96
[2017-08-12] MEDS: BENZONATATE 100MG CAP PO PRN ×3 (00:36→20:47)
[2017-08-12] MEDS: ACETAMINOPHEN 325 MG TAB PO PRN ×2 (00:49→09:35)
[2017-08-12] MEDS: LEVALBUTEROL 0.63MG/3 ML NEB INH SCH ×4 (02:35→19:00)
[2017-08-12] MEDS: IPRATROPIUM BROMIDE NEB SOLN 0.02% 2.5 ML VIAL INH SCH ×4 (02:35→19:00)
[2017-08-12] MEDS ORDERED: LEVALBUTEROL/IPRATROPIUM NEB INH SCH (03:00)
[2017-08-12] MEDS: HEPARIN SOD 5000 UNIT/0.5 ML CARP SQ SCH ×3 (06:19→20:35)
[2017-08-12 06:21] LABS: BASO % 1.1 %; BASO ABS # 0.04 K/uL (0-0.2); EOS % 29.2 %; EOS ABS # 1.07 K/uL (0-0.5); HEMATOCRIT 35.8 % (37-47); HEMOGLOBIN 12.3 g/dL (12.0-16.0); LYMPH % 28.1 %; LYMPH ABS # 1.03 K/uL (1.2-3.4); MEAN CELL VOLUME 90.9 fL (80-100); MEAN CORPUSCULAR HEMOGLOBIN 31.2 pg (25-34); MEAN CORPUSCULAR HGB CONC 34.4 g/dl (32-36); MEAN PLATELET VOLUME 10.7 fL (7.4-10.4); MONO ABS # 0.33 K/uL (0.11-0.59); NEUT % 32.6 %; NEUT ABS # 1.19 K/uL (1.4-6.5); PLATELET COUNT 130 K/uL (130-400); RED CELL DISTRIBUTION WIDTH CV 13.5 % (11.5-14.5); RED CELL DISTRIBUTION WIDTH SD 44.5 fL (36.4-46.3); WHITE BLOOD COUNT 3.66 K/uL (4.8-10.8)
[2017-08-12 06:58] LABS: ALBUMIN 3.1 gm/dl (3.4-5.0); CALCIUM 8.5 mg/dl (8.5-10.1); CREATININE 0.61 mg/dl (0.60-1.20); POTASSIUM 3.9 mmol/L (3.5-5.1)
[2017-08-12 07:01] LABS: PHOSPHORUS 4.1 mg/dl (2.5-4.9); TOTAL PROTEIN 5.5 gm/dl (6.4-8.2)
[2017-08-12 07:04] LABS: HEMOGLOBIN A1C 5.4 % (4.5-5.6)
--- NOTE | 2017-08-12 15:11 | Pulmonary Consultation ---
History General Date of Service: Aug 12, 2017. Stated Complaint: Pneumonia HPI She was she denies any The patient is a 87 year old female who presents to [facility] with complaints of Pneumonia. The patient's primary care provider is Ora Matthews M.D.. Ms. Reynolds is an 87-year-old female who presents to the ER with a 5 week history of shortness of breath. She describes right-sided pleuritic chest pain exacerbated with cough. She has seen her primary care physician several times in the past few weeks. She was empirically been treated with antibiotics and corticosteroids and completed a course about 3 weeks ago. She denies any fevers , chills, night sweats or hemoptysis. She states that she has had decreased appetite but unable to quantify any significant weight loss. She also notes that she's had decreased exercise tolerance for the same period of time. 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 She denies symptoms of rhinitis or GERD. She denies any orthopnea, paroxysmal nocturnal dyspnea or lower extremity edema. She denies any nausea, vomiting or diarrhea. She does admit to intermittent episodes of constipation. She denies any genitourinary symptoms. She denies any sick contacts or recent travel. On 08/10/[address] chest was ordered by primary care physician which showed right middle lobe atelectasis as well as patchy groundglass opacities in the right upper lobe suggestive of infection versus inflammatory process. She also had some increase in bilateral lobar distribution of subpleural reticulation which may suggest fibrotic lung disease. CT scan also demonstrated prior history of granulomatous disease. Her primary care physician recommended she come to the ER for further evaluation. Upon arrival to the ER temperature was 36.5, pulse 67, respiratory rate 20, blood pressure 158/98, saturating 96% on room air. Laboratory data essentially unremarkable. Troponin less than 0.015 and BNP 289. Pro-calcitonin less than 0.05. Her eosinophils are elevated at 1.04. Influenza A and B serology negative. Legionella antigen, beta-1 3-D glucan and QuantiFERON Gold pending. She received a dose of cefepime 2 g and admitted for further workup. Historian: patient Onset: last week Severity: moderate Complaint Status: persistent Review of Systems Constitutional: reports: as stated in HPI Eyes: reports: as stated in HPI ENT: reports: as stated in HPI Cardiovascular: reports: as stated in HPI Respiratory: reports: as stated in HPI Gastrointestinal: reports: as stated in HPI Genitourinary - Female: reports: as stated in HPI Musculoskeletal: reports: as stated in HPI Integumentary: reports: as stated in HPI Neurologic: reports: as stated in HPI Psychiatric: reports: as stated in HPI Endocrine: as stated in HPI Hematologic / Lymphatic: as stated in HPI All Other Symptoms All Other Systems: Reviewed and Negative Social History Hx Tobacco Use In Past Year?: No Smoking Status: Never Smoker Marital status: Occupational Status: retired Immunizations History of Influenza Vaccine: Yes Influenza Vaccine Date: Jun 18, 2013 History of Tetanus Vaccine?: Unknown Tetanus Immunization Date: Sep 20, 2004 History of Pneumococcal: Yes Pneumococcal Date: Jul 19, 2011 History of Hepatitis B Vaccine: Unknown History of MDRO History of MDRO: No Allergies Coded Allergies: No Known Allergies (Verified , 08/11/17) Current Medications Reported Home Medications Medications Dose Route/Sig Max Daily Dose Days Date Category Ventolin Hfa (Albuterol) 200 Puffs/48155 Mcg Aers 2 Puffs INH QID PRN 08/11/17 Reported Benzonatate 100 Mg Cap 1-2 Cap PO TID PRN 08/11/17 Reported Mobic (Meloxicam) 7.5 Mg Tab 7.5 Mg PO QAM 08/07/17 Reported Ventolin Hfa (Albuterol) 60 Puffs/5400 Mcg Aers 2 Puffs INH PRN 08/07/17 Reported Tylenol (Acetaminophen) 500 Mg Tab 500 Mg PO DIRECTED PRN 12/08/16 Reported Lipitor (Atorvastatin Calcium) 10 Mg Tab 10 Mg PO QPM 04/29/16 Reported Vitamin B12 (Cyanocobalamin) 1,000 Mcg Tab 1 Tab PO QAM 11/26/15 Reported Calcium Magnesium & Zinc (Acmfsqt-Sfyvlbgxq-Uflb) 1 Tab Tab 1 Tab PO NOON 11/26/15 Reported [place]-3 (Fish Oil) 1 Ea Cap 1 Cap PO QAM 11/26/15 Reported Vitamin D3 (Cholecalciferol) 1,000 Unit Tab 1 Tab PO QAM 11/26/15 Reported Claritin (Loratadine) 10 Mg Tab 10 Mg PO DAILY PRN 11/26/15 Reported Neurontin (Gabapentin) 100 Mg Cap 400 Mg PO HS 11/26/15 Reported Melatonin Maximum Strengt (Melatonin) 5 Mg Tab 1 Tab PO HS PRN 11/26/15 Reported Aspirin Chewable (Aspirin) 81 Mg Chew 81 Mg PO QPM 11/26/15 Reported Physical Physical Exam Vital Signs: Date Time Temp Pulse Resp B/P (MAP) Pulse Ox O2 Delivery O2 Flow Rate FiO2 08/12/17 11:33 36.8 63 20 145/76 (99) 94 Room Air 08/12/17 07:21 36.6 63 18 130/73 (92) 93 Room Air 08/12/17 07:01 66 16 94 Room Air 08/12/17 04:00 Room Air 08/12/17 03:53 36.5 65 18 118/58 (78) 93 Room Air 08/12/17 02:35 66 16 94 Room Air 08/12/17 00:01 36.6 54 20 132/58 (82) 95 Room Air 08/12/17 00:00 Room Air 08/11/17 22:32 36.9 72 16 164/74 95 08/11/17 21:44 72 16 156/93 95 08/11/17 21:34 72 16 156/93 95 Room Air 08/11/17 20:59 79 15 152/93 96 Room Air 08/11/17 19:17 85 08/11/17 19:01 73 20 162/100 94 Room Air 08/11/17 18:17 77 27 94 Room Air 08/11/17 18:02 166/121 08/11/17 17:42 72 23 94 Room Air 08/11/17 17:31 165/89 08/11/17 17:12 70 16 94 Room Air 08/11/17 17:07 72 18 95 Room Air 08/11/17 17:02 155/95 08/11/17 16:50 75 24 94 Room Air 08/11/17 16:31 151/91 08/11/17 16:20 78 23 94 Room Air 08/11/17 16:15 76 21 95 Room Air 08/11/17 16:01 158/82 08/11/17 15:45 69 17 94 Room Air 08/11/17 15:32 163/82 08/11/17 15:25 173/89 08/11/17 15:23 76/68 08/11/17 15:10 68 20 134/76 96 Room Air 08/11/17 15:06 65 08/11/17 14:40 64 16 96 Room Air 08/11/17 14:10 94 Room Air 08/11/17 14:02 36.5 67 20 158/92 96 Room Air General Appearance: WD/WN, NO APPARENT DISTRESS Head: NORMOCEPHALIC, ATRAUMATIC Eyes: NO DISCHARGE, EOMI, SCLERAE NORMAL ENT: NORMAL THROAT EXAM, NORMAL DENTAL EXAM Neck: NO TENDERNESS, TRACHEA MIDLINE, NO STRIDOR Respiratory: BREATH SOUNDS NORMAL, CLEAR TO AUSCULTATION, NO TENDERNESS Cardiovasular: REGULAR RATE/RHYTHM, NORMAL S1S2, NO M/G/R Abdomen: NON TENDER, NORMAL BOWEL SOUNDS, NO REBOUND Back: NORMAL INSPECTION, NO MIDLINE TENDERNESS, NO CVA TENDERNESS Upper Extremities: NO EDEMA, NO DEFORMITY, NORMAL ROM Lower Extremities: NO EDEMA, NO DEFORMITY, NORMAL ROM Pulses: dorsalis pedis (R) (2+), dorsalis pedis (L) (2+) Neuro: ALERT, ORIENTED x 3, NORMAL MOTOR EXAM Psychiatric: NORMAL AFFECT, NO SUICIDAL IDEATION, CONTRACTS FOR SAFETY Diagnostics Labs Results Past 24 Hours Test 08/11/17 14:28 08/11/17 14:38 08/11/17 21:44 08/12/17 02:00 Range/Units Influenza Type A Antigen Neg for Influ A NEG Influenza Type B Antigen Neg for Influ B NEG White Blood Count 3.98 4.8-10.8 K/uL Red Blood Count 4.17 4.2-5.4 M/uL Hemoglobin 13.2 12.0-16.0 g/dL Hematocrit 38.0 37-47 % Mean Corpuscular Volume 91.1 80-100 fL Mean Corpuscular Hemoglobin 31.7 25-34 pg Mean Corpuscular Hemoglobin Concent 34.7 32-36 g/dl Platelet Count 145 130-400 K/uL Mean Platelet Volume 10.6 7.4-10.4 fL Neutrophils (%) (Auto) 38.6 % Lymphocytes (%) (Auto) 26.4 % Monocytes (%) (Auto) 7.8 % Eosinophils (%) (Auto) 26.1 % Basophils (%) (Auto) 0.8 % Neutrophils # (Auto) 1.54 1.4-6.5 K/uL Lymphocytes # (Auto) 1.05 1.2-3.4 K/uL Monocytes # (Auto) 0.31 0.11-0.59 K/uL Eosinophils # (Auto) 1.04 0-0.5 K/uL Basophils # (Auto) 0.03 0-0.2 K/uL RDW Standard Deviation 44.5 36.4-46.3 fL RDW Coefficient of Variation 13.5 11.5-14.5 % Immature Granulocyte % (Auto) 0.3 % Immature Granulocyte # (Auto) 0.01 0.00-0.02 K/uL Prothrombin Time 10.2 9.0-12.0 SECONDS Prothromb Time International Ratio 1.0 0.9-1.1 Activated Partial Thromboplast Time 23.6 21.0-31.0 SECONDS Partial Thromboplastin Ratio 0.9 Sodium Level 135 136-145 mmol/L Potassium Level 4.4 3.5-5.1 mmol/L Chloride Level 102 98-107 mmol/L Carbon Dioxide Level 27 21-32 mmol/L Anion Gap 6.0 3-11 mmol/L Blood Urea Nitrogen 16 7-18 mg/dl Creatinine 0.81 0.60-1.20 mg/dl Est Creatinine Clear Calc Drug Dose 45.8 ml/min Estimated GFR () 74.6 Estimated GFR (Non- 64.4 BUN/Creatinine Ratio 19.8 10-20 Random Glucose 79 70-99 mg/dl Calcium Level 9.1 8.5-10.1 mg/dl Magnesium Level 2.2 1.8-2.4 mg/dl Total Bilirubin 0.4 0.2-1 mg/dl Aspartate Amino Transf (AST/SGOT) 17 15-37 U/L Alanine Aminotransferase (ALT/SGPT) 23 12-78 U/L Alkaline Phosphatase 49 45-117 U/L Troponin I < 0.015 0-0.045 ng/ml Pro-B-Type Natriuretic Peptide 289 0-1800 pg/ml Total Protein 6.6 6.4-8.2 gm/dl Albumin 3.9 3.4-5.0 gm/dl Globulin 2.7 2.5-4.0 gm/dl Albumin/Globulin Ratio 1.5 0.9-2 Triglycerides Level 67 0-150 mg/dl Cholesterol Level 187 0-200 mg/dl HDL Cholesterol 94 mg/dl LDL Cholesterol, Calculated 80 mg/dl VLDL Cholesterol, Calculated 13 mg/dl Cholesterol/HDL Ratio 2.0 Procalcitonin < 0.05 0-0.5 ng/ml Test 08/12/17 05:50 Range/Units White Blood Count 3.66 4.8-10.8 K/uL Red Blood Count 3.94 4.2-5.4 M/uL Hemoglobin 12.3 12.0-16.0 g/dL Hematocrit 35.8 37-47 % Mean Corpuscular Volume 90.9 80-100 fL Mean Corpuscular Hemoglobin 31.2 25-34 pg Mean Corpuscular Hemoglobin Concent 34.4 32-36 g/dl Platelet Count 130 130-400 K/uL Mean Platelet Volume 10.7 7.4-10.4 fL Neutrophils (%) (Auto) 32.6 % Lymphocytes (%) (Auto) 28.1 % Monocytes (%) (Auto) 9.0 % Eosinophils (%) (Auto) 29.2 % Basophils (%) (Auto) 1.1 % Neutrophils # (Auto) 1.19 1.4-6.5 K/uL Lymphocytes # (Auto) 1.03 1.2-3.4 K/uL Monocytes # (Auto) 0.33 0.11-0.59 K/uL Eosinophils # (Auto) 1.07 0-0.5 K/uL Basophils # (Auto) 0.04 0-0.2 K/uL RDW Standard Deviation 44.5 36.4-46.3 fL RDW Coefficient of Variation 13.5 11.5-14.5 % Immature Granulocyte % (Auto) 0.0 % Immature Granulocyte # (Auto) 0.00 0.00-0.02 K/uL Sodium Level 137 136-145 mmol/L Potassium Level 3.9 3.5-5.1 mmol/L Chloride Level 105 98-107 mmol/L Carbon Dioxide Level 27 21-32 mmol/L Anion Gap 5.0 3-11 mmol/L Blood Urea Nitrogen 17 7-18 mg/dl Creatinine 0.61 0.60-1.20 mg/dl Est Creatinine Clear Calc Drug Dose 60.8 ml/min Estimated GFR () 93.2 Estimated GFR (Non- 80.4 BUN/Creatinine Ratio 27.4 10-20 Random Glucose 85 70-99 mg/dl Estimated Average Glucose 108 mg/dl Hemoglobin A1c 5.4 4.5-5.6 % Calcium Level 8.5 8.5-10.1 mg/dl Phosphorus Level 4.1 2.5-4.9 mg/dl Magnesium Level 2.0 1.8-2.4 mg/dl Total Bilirubin 0.6 0.2-1 mg/dl Aspartate Amino Transf (AST/SGOT) 15 15-37 U/L Alanine Aminotransferase (ALT/SGPT) 21 12-78 U/L Alkaline Phosphatase 41 45-117 U/L Total Protein 5.5 6.4-8.2 gm/dl Albumin 3.1 3.4-5.0 gm/dl Globulin 2.4 2.5-4.0 gm/dl Albumin/Globulin Ratio 1.3 0.9-2 Microbiology Results 08/11/17 Blood Culture, Received Pending 08/11/17 Blood Culture, Received Pending 08/11/17 Blood Culture, Received Pending 08/11/17 Blood Culture, Received Pending 08/12/17 Acid Fast Stain, Received Pending 08/12/17 Mycobacterial Culture, Received Pending 08/12/17 Fungal Smear - Final, Resulted 08/12/17 Fungal Culture, Resulted Pending 08/12/17 Gram Stain - Final, Resulted 08/12/17 Sputum Culture, Resulted Pending Diagnostic Radiology CHEST ONE VIEW PORTABLE CLINICAL HISTORY: 87 years-old Female presenting with EVALUATE RESPIRATORY DISTRESS.DYSPNEA. TECHNIQUE: Portable upright AP view of the chest was obtained. COMPARISON: 08/07/2017. FINDINGS: Cardiomediastinal silhouette normal. Previous study demonstrated right middle lobe collapse better appreciated on prior CT from 08/10/2017. Degenerative changes of the thoracic spine. 2 fixation anchors noted in the left humeral head. Upper abdomen normal. IMPRESSION: 1. No acute cardiopulmonary disease. (CHEST) THORAX WITHOUT CT DOSE: 373.33 mGycm CLINICAL HISTORY: 87 years-old Female with R05 [id number] Abnormal chest xrayPt is scheduled for hip surger. Acute cough . Pleural thickening or loculated fluid discussed on comparison chest radiographs TECHNIQUE: Multiaxial CT images of the chest were performed without contrast. A dose lowering technique was utilized adhering to the principles of ALARA. COMPARISON: CT chest 03/18/2015 chest radiographs 08/07/2017. FINDINGS: Thyroid is homogeneous. Calcified lymph nodes throughout the mediastinum and kashif suggest prior lumbar disc disease. Nonspecific mildly prominent left hilar and pretracheal lymph nodes measure up to 8 mm. A large subcarinal lymph node measures 1.2 x 1.4 cm. These findings appear generally stable from comparison study with moderate enlargement of the pretracheal lymph node, previous measuring 6 mm. These findings are nonspecific. Heart is normal in size with coronary arterial calcifications. Aortic annular calcifications also noted. No aortic aneurysm identified. Multifocal multilobar bilateral subpleural reticular opacities suggest areas of chronic fibrosis suggest likely progressed from comparison. There are patchy groundglass opacities noted throughout the right upper and lower lobes. There is opacification of the right middle lobe bronchus with complete collapse of the right middle lobe. This accounts for the finding seen on comparison radiographs. The main central airways are patent. No acute amount of the imaged upper abdomen. Colonic diverticulosis. Splenic parenchymal calcifications. Moderate atrophy of the left subscapularis musculature. No suspicious lytic or blastic bony lesions. IMPRESSION: 1. Opacification of the right middle lobe bronchus with complete collapse of the right middle lobe accounts for the finding seen on comparison chest radiographs. Correlation with bronchoscopy recommended to exclude obstructing endobronchial lesion. 2. Patchy groundglass opacities of the right upper and lower lobes suggests infectious or inflammatory pneumonitis. 3. Progressive bilateral multilobar distribution of subpleural reticulation suggests fibrotic lung disease. 4. Prior granulomatous disease. Impression Assessment and Plan Chronic cough Right middle lobe atelectasis Pneumonia Patient has had chronic cough for the last 4-5 weeks. She was empirically treated with antibiotics and prednisone as an outpatient. Despite this she has had persistent symptoms of decreased exercise tolerance. Of note she does have elevated IgE. CT chest also shows some groundglass opacities of the lower lobes. 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 At the current time, the differential includes infectious in etiology, an allergic versus inflammatory phenomenon ie. hypersensitivity pneumonitis, chronic eosinophilic pneumonia, ABPA, MAC infection as she does have right middle lobe atelectasis or community acquired pneumonia. We also need to rule out an obstructive lesion causing atelectasis as well. Recommendations She is currently not hypoxic, use supplemental oxygen when necessary to keep SaO2 above 92%. Continue with bronchodilators when necessary. Send serum IgG, IgA, IgM, IgE Also spent some Aspergillus IgG and IgE Recommend to send ESR and CRP F/u 1, 3 beta galactomannan and QuantiFERON Pending. AFB pending, fungal culture and bacterial culture pending Blood cultures 2 pending. We'll also send hypersensitivity pneumonitis workup. Keep nothing by mouth past midnight for bronchoscopy in a.m. I appreciate the consult . Please contact with any further questions or concerns.
--- NOTE | 2017-08-12 16:06 | Progress Note ---
Subjective Date of Service: Aug 12, 2017. Subjective Pt evaluation today including: conversation w/ patient, physical exam, chart review, lab review, review of studies, review of inpatient medication list Pain: no Voiding: no voiding problems Patient is seen and examined by me. Pt denies sob, cp however on deep inspiration she feels pain in the right ribs. Pt denies fever, chills, rigors and sweats. Pt denies nausea, vomiting, abdominal pain and diarrhea. pt is lying comfortably in her bed and talking to her close friend. Problem List Medical Problems: (1) Abrasion Status: Acute (2) Contusion Status: Acute (3) Contusion of multiple sites Status: Acute (4) Failure of outpatient treatment Status: Acute (5) Head injury Status: Acute (6) Lung collapse Status: Acute (7) Nasal bone fx-closed Status: Acute (8) Pneumonia Status: Acute (9) Skin tear Status: Acute Review of Systems All Other Systems: Reviewed and Negative Medications Medications (Trade) Dose Ordered Sig/Clemente Route Start Time Stop Time Status Last Admin Dose Admin Cefepime HCl 2000 mg/Dextrose 112.5 ml @ 200 mls/hr ONE STAT IV 08/11/17 14:09 08/11/17 21:13 DC 08/11/17 14:59 200 MLS/HR Levalbuterol (Xopenex 1.25MG/ 0.5ML Neb) 1.25 mg NOW STAT INH 08/11/17 14:09 08/11/17 14:16 DC 08/11/17 14:38 1.25 MG Ipratropium Eugene (Atrovent 0.02% 0.5MG/2.5ML Neb) 0.5 mg NOW STAT INH 08/11/17 14:09 08/11/17 14:16 DC 08/11/17 14:38 0.5 MG Heparin Sodium (Porcine) (Heparin Sq 5000 Unit/0.5ml) 5,000 unit Q8 SQ 08/11/17 22:00 09/10/17 21:59 08/12/17 06:19 5,000 UNIT Sodium Chloride 1,000 ml @ 25 mls/hr Q24H IV 08/11/17 21:13 09/10/17 21:12 08/11/17 23:38 25 MLS/HR Acetaminophen (Tylenol Tab) 650 mg Q4H PRN PO 08/11/17 21:15 18 21:14 08/12/17 00:49 650 MG Benzonatate (Tessalon Perles Cap) 100 mg TID PRN PO 08/11/17 22:45 09/10/17 22:44 08/12/17 00:36 100 MG Ipratropium [place] (Atrovent 0.02% 0.5MG/2.5ML Neb) 0.5 mg Q6R INH 08/12/17 03:00 09/11/17 02:59 08/12/17 07:00 0.5 MG Levalbuterol (Xopenex 0.63 Mg/ 3 Ml Neb) 0.63 mg Q6R INH 08/12/17 03:00 09/11/17 02:59 08/12/17 07:01 0.63 MG Objective Vital Signs Date Time Temp Pulse Resp B/P (MAP) Pulse Ox O2 Delivery O2 Flow Rate FiO2 08/12/17 07:21 36.6 63 18 130/73 (92) 93 Room Air 08/12/17 07:01 66 16 94 Room Air 08/12/17 04:00 Room Air 08/12/17 03:53 36.5 65 18 118/58 (78) 93 Room Air 08/12/17 02:35 66 16 94 Room Air 08/12/17 00:01 36.6 54 20 132/58 (82) 95 Room Air 08/12/17 00:00 Room Air 08/11/17 22:32 36.9 72 16 164/74 95 08/11/17 21:44 72 16 156/93 95 08/11/17 21:34 72 16 156/93 95 Room Air 08/11/17 20:59 79 15 152/93 96 Room Air 08/11/17 19:17 85 08/11/17 19:01 73 20 162/100 94 Room Air 08/11/17 18:17 77 27 94 Room Air 08/11/17 18:02 166/121 08/11/17 17:42 72 23 94 Room Air 08/11/17 17:31 165/89 08/11/17 17:12 70 16 94 Room Air 08/11/17 17:07 72 18 95 Room Air 08/11/17 17:02 155/95 08/11/17 16:50 75 24 94 Room Air 08/11/17 16:31 151/91 08/11/17 16:20 78 23 94 Room Air 08/11/17 16:15 76 21 95 Room Air 08/11/17 16:01 158/82 08/11/17 15:45 69 17 94 Room Air 08/11/17 15:32 163/82 08/11/17 15:25 173/89 08/11/17 15:23 76/68 08/11/17 15:10 68 20 134/76 96 Room Air 08/11/17 15:06 65 08/11/17 14:40 64 16 96 Room Air 08/11/17 14:10 94 Room Air 08/11/17 14:02 36.5 67 20 158/92 96 Room Air Physical Exam General Appearance: no apparent distress Eyes: EOMI Neck: supple Respiratory/Chest: no respiratory distress, + crackles, + rhonchi, + pertinent finding (dullness on precussion in the right middle lung and decrease air entry) Cardiovascular: regular rate, rhythm, no edema, no murmur Abdomen: normal bowel sounds, non tender, soft Extremities: normal range of motion, non-tender, normal inspection Neurologic/Psychiatric: alert, normal mood/affect, oriented x 3 Skin: no rash Lymphatic: no adenopathy Laboratory Results Last 24 Hours Test 08/11/17 14:28 08/11/17 14:38 08/11/17 21:44 08/12/17 02:00 Influenza Type A Antigen Neg for Influ A Influenza Type B Antigen Neg for Influ B White Blood Count 3.98 K/uL Red Blood Count 4.17 M/uL Hemoglobin 13.2 g/dL Hematocrit 38.0 % Mean Corpuscular Volume 91.1 fL Mean Corpuscular Hemoglobin 31.7 pg Mean Corpuscular Hemoglobin Concent 34.7 g/dl Platelet Count 145 K/uL Mean Platelet Volume 10.6 fL Neutrophils (%) (Auto) 38.6 % Lymphocytes (%) (Auto) 26.4 % Monocytes (%) (Auto) 7.8 % Eosinophils (%) (Auto) 26.1 % Basophils (%) (Auto) 0.8 % Neutrophils # (Auto) 1.54 K/uL Lymphocytes # (Auto) 1.05 K/uL Monocytes # (Auto) 0.31 K/uL Eosinophils # (Auto) 1.04 K/uL Basophils # (Auto) 0.03 K/uL RDW Standard Deviation 44.5 fL RDW Coefficient of Variation 13.5 % Immature Granulocyte % (Auto) 0.3 % Immature Granulocyte # (Auto) 0.01 K/uL Prothrombin Time 10.2 SECONDS Prothromb Time International Ratio 1.0 Activated Partial Thromboplast Time 23.6 SECONDS Partial Thromboplastin Ratio 0.9 Sodium Level 135 mmol/L Potassium Level 4.4 mmol/L Chloride Level 102 mmol/L Carbon Dioxide Level 27 mmol/L Anion Gap 6.0 mmol/L Blood Urea Nitrogen 16 mg/dl Creatinine 0.81 mg/dl Est Creatinine Clear Calc Drug Dose 45.8 ml/min Estimated GFR () 74.6 Estimated GFR (Non- 64.4 BUN/Creatinine Ratio 19.8 Random Glucose 79 mg/dl Calcium Level 9.1 mg/dl Magnesium Level 2.2 mg/dl Total Bilirubin 0.4 mg/dl Aspartate Amino Transf (AST/SGOT) 17 U/L Alanine Aminotransferase (ALT/SGPT) 23 U/L Alkaline Phosphatase 49 U/L Troponin I < 0.015 ng/ml Pro-B-Type Natriuretic Peptide 289 pg/ml Total Protein 6.6 gm/dl Albumin 3.9 gm/dl Globulin 2.7 gm/dl Albumin/Globulin Ratio 1.5 Triglycerides Level 67 mg/dl Cholesterol Level 187 mg/dl HDL Cholesterol 94 mg/dl LDL Cholesterol, Calculated 80 mg/dl VLDL Cholesterol, Calculated 13 mg/dl Cholesterol/HDL Ratio 2.0 Procalcitonin < 0.05 ng/ml Test 08/12/17 05:50 White Blood Count 3.66 K/uL Red Blood Count 3.94 M/uL Hemoglobin 12.3 g/dL Hematocrit 35.8 % Mean Corpuscular Volume 90.9 fL Mean Corpuscular Hemoglobin 31.2 pg Mean Corpuscular Hemoglobin Concent 34.4 g/dl Platelet Count 130 K/uL Mean Platelet Volume 10.7 fL Neutrophils (%) (Auto) 32.6 % Lymphocytes (%) (Auto) 28.1 % Monocytes (%) (Auto) 9.0 % Eosinophils (%) (Auto) 29.2 % Basophils (%) (Auto) 1.1 % Neutrophils # (Auto) 1.19 K/uL Lymphocytes # (Auto) 1.03 K/uL Monocytes # (Auto) 0.33 K/uL Eosinophils # (Auto) 1.07 K/uL Basophils # (Auto) 0.04 K/uL RDW Standard Deviation 44.5 fL RDW Coefficient of Variation 13.5 % Immature Granulocyte % (Auto) 0.0 % Immature Granulocyte # (Auto) 0.00 K/uL Sodium Level 137 mmol/L Potassium Level 3.9 mmol/L Chloride Level 105 mmol/L Carbon Dioxide Level 27 mmol/L Anion Gap 5.0 mmol/L Blood Urea Nitrogen 17 mg/dl Creatinine 0.61 mg/dl Est Creatinine Clear Calc Drug Dose 60.8 ml/min Estimated GFR () 93.2 Estimated GFR (Non- 80.4 BUN/Creatinine Ratio 27.4 Random Glucose 85 mg/dl Estimated Average Glucose 108 mg/dl Hemoglobin A1c 5.4 % Calcium Level 8.5 mg/dl Phosphorus Level 4.1 mg/dl Magnesium Level 2.0 mg/dl Total Bilirubin 0.6 mg/dl Aspartate Amino Transf (AST/SGOT) 15 U/L Alanine Aminotransferase (ALT/SGPT) 21 U/L Alkaline Phosphatase 41 U/L Total Protein 5.5 gm/dl Albumin 3.1 gm/dl Globulin 2.4 gm/dl Albumin/Globulin Ratio 1.3 Assessment and Plan 87-year-old female presented to the ED with non-resolving right-sided pneumonia with CAT scan finding of Opacification of the right middle lobe bronchus with complete collapse of the right middle lobe, ground glass opacity RLL, fibrotic lung disease/ granulomatous underlying disease,differential are actinomyces, Rhodococcus equi pneumonia, Mycobacterium avium complex lung disease Plan: -- Since patient does not look toxic, no leukocytosis, no fever, no tachycardia no antibiotics for now will wait for ID input and blood cultures. -- Last antibiotic was taken as an outpatient 3 weeks ago,1 dose of cefepime in ED. -- pending fungal sputum smear/culture, fungi tell, D galactomannan in urine rule out underlying fungal disease -- pending sputum AFB for 2 reasons she has the right exposure and she has an underlying granulomatous scarring in the lung, and other reason if she has currently lung mass or any -- immune compromised factor that might lead to activation of any previous TB that was dormant -- Continue airborne isolation for safety of staff although my suspicion is low -- pending pulmonary and ID input -- Bronchodilators -- Npo midnight and plan for bronchoscopy in morning DVT prophylaxis with heparin Continued [facility] stay due to: home environment unsafe for pt Discharge planning: home
--- NOTE | 2017-08-12 19:21 | Medical Consult ---
Consultation Date of Consultation: Aug 12, 2017. Attending Physician: Chetan Ley MD Reason for Consultation: Right lung consolidation, possible granulomatous disease History of Present Illness 87-year-old female in good health without significant past medical history states she has been ill for over 1 month with cough, shortness of breath, pleuritic chest pain, and fatigue. She has seen her primary care physician several times and has received antibiotics and steroids without improvement. She was referred to the hospital for further management and was found to have evidence of right middle lobe collapse on CT scan, reviewed by me, as well as ground-glass opacities in the right upper lobe consistent with possible infectious or inflammatory process. She also has evidence of prior old granulomatous disease. She has not had any significant fever chills, no hemoptysis, no ill contacts. Has extensive travel history including travel to [place] in the [place], and also cares for 2 worsens. Past Medical/Surgical History Medical Problems: (1) Abrasion Status: Acute (2) Contusion Status: Acute (3) Contusion of multiple sites Status: Acute (4) Failure of outpatient treatment Status: Acute (5) Head injury Status: Acute (6) Lung collapse Status: Acute (7) Nasal bone fx-closed Status: Acute (8) Pneumonia Status: Acute (9) Skin tear Status: Acute Medical Problems: (1) section (2) Hysterectomy (3) Shoulder surgery (4) TIA (transient ischemic attack) Family History Noncontributory Social History Smoking Status: Never Smoker Drug Use: none Marital Status: Occupation Status: retired Allergies Coded Allergies: No Known Allergies (Verified , 08/11/17) Current Inpatient Medications Current Inpatient Medications Medications (Trade) Dose Ordered Sig/Clemente Route Start Time Stop Time Status Last Admin Dose Admin Heparin Sodium (Porcine) (Heparin Sq 5000 Unit/0.5ml) 5,000 unit Q8 SQ 08/11/17 22:00 09/10/17 21:59 08/12/17 15:47 5,000 UNIT Sodium Chloride 1,000 ml @ 25 mls/hr Q24H IV 08/11/17 21:13 09/10/17 21:12 08/11/17 23:38 25 MLS/HR Acetaminophen (Tylenol Tab) 650 mg Q4H PRN PO 08/11/17 21:15 09/10/17 21:14 08/12/17 09:35 650 MG Al Hydrox/Mg Hydrox/Simethicone (Maalox Max Susp) 15 ml Q4H PRN PO 08/11/17 21:15 09/10/17 21:14 Magnesium Hydroxide (Milk Of Magnesia Susp) 30 ml Q12H PRN PO 08/11/17 21:15 09/10/17 21:14 Zolpidem Tartrate (Ambien Tab) 5 mg HSZ PRN PO 08/11/17 21:15 09/10/17 21:14 Polyethylene (Miralax Powder Packet) 17 gm DAILY PRN PO 08/11/17 21:15 09/10/17 21:14 Miscellaneous Information (Order Awaiting Action) 1 ea QS N/A 08/12/17 00:00 09/11/17 00:00 Albuterol (Ventolin Hfa Inhaler) 2 puffs QID PRN INH 08/11/17 22:45 09/10/17 22:44 Atorvastatin Calcium (Lipitor Tab) 10 mg QPM PO 08/12/17 21:00 09/11/17 20:59 Benzonatate (Tessalon Perles Cap) 100 mg TID PRN PO 08/11/17 22:45 09/10/17 22:44 08/12/17 09:34 100 MG Gabapentin (Neurontin Cap) 400 mg HS PO 08/12/17 21:00 09/11/17 20:59 Loratadine (Claritin Tab) 10 mg DAILY PRN PO 08/11/17 22:45 09/10/17 22:44 Ipratropium [place] (Atrovent 0.02% 0.5MG/2.5ML Neb) 0.5 mg Q6R INH 08/12/17 03:00 09/11/17 02:59 08/12/17 14:18 0.5 MG Levalbuterol (Xopenex 0.63 Mg/ 3 Ml Neb) 0.63 mg Q6R INH 08/12/17 03:00 09/11/17 02:59 08/12/17 14:18 0.63 MG Review of Systems Constitutional: No fever, No chills Eyes: No problem reported ENT: No problem reported Respiratory: + cough, + sputum, No hemoptysis Cardiovascular: + chest pain Abdomen: No problem reported Musculoskeletal: No problem reported Genitourinary - Female: No problem reported Neurologic: No problem reported Psychiatric: No problem reported Endocrine: No problem reported Hematologic / Lymphatic: No problem reported Integumentary: No problem reported Allergic / Immunologic: No problem reported Physical Exam Date Time Temp Pulse Resp B/P (MAP) Pulse Ox O2 Delivery O2 Flow Rate FiO2 08/12/17 15:57 Room Air 08/12/17 15:41 36.7 75 20 99/42 (61) 94 Room Air 08/12/17 14:18 64 16 95 Room Air 08/12/17 12:05 Room Air 08/12/17 11:33 36.8 63 20 145/76 (99) 94 Room Air 08/12/17 09:00 Room Air 08/12/17 07:21 36.6 63 18 130/73 (92) 93 Room Air 08/12/17 07:01 66 16 94 Room Air 08/12/17 04:00 Room Air 08/12/17 03:53 36.5 65 18 118/58 (78) 93 Room Air 08/12/17 02:35 66 16 94 Room Air 08/12/17 00:01 36.6 54 20 132/58 (82) 95 Room Air 08/12/17 00:00 Room Air 08/11/17 22:32 36.9 72 16 164/74 95 08/11/17 21:44 72 16 156/93 95 08/11/17 21:34 72 16 156/93 95 Room Air 08/11/17 20:59 79 15 152/93 96 Room Air 08/11/17 19:17 85 General Appearance: WD/WN, no apparent distress Head: normocephalic, atraumatic Eyes: normal inspection, EOMI, sclerae normal ENT: normal ENT inspection, hearing grossly normal, pharynx normal Neck: supple, no adenopathy, thyroid normal, trachea midline Respiratory/Chest: chest non-tender, no respiratory distress, + rhonchi Cardiovascular: regular rate, rhythm, no gallop, no murmur Abdomen/GI: normal bowel sounds, non tender, soft, no organomegaly Back: normal inspection, no CVA tenderness Extremities/Musculoskelatal: no calf tenderness, non-tender Neurologic/Psych: alert, oriented x 3 Skin: normal color, warm/dry, no rash Lymphatic: no adenopathy Laboratory Results Date/Time Source Procedure Growth Status 08/11/17 21:59 Blood Blood Culture Pending Received 08/11/17 21:44 Blood Blood Culture Pending Received 08/12/17 08:39 Sputum Expectorated Sputum Acid Fast Stain Pending Received 08/12/17 08:39 Sputum Expectorated Sputum Mycobacterial Culture Pending Received 08/12/17 00:00 Sputum Expectorated Sputum Fungal Smear - Final Resulted 08/12/17 00:00 Sputum Expectorated Sputum Fungal Culture Pending Resulted 08/12/17 00:00 Sputum Expectorated Sputum Gram Stain - Final Resulted 08/12/17 00:00 Sputum Expectorated Sputum Sputum Culture Pending Resulted Last 24 Hours Test 08/11/17 21:44 08/12/17 02:00 08/12/17 05:50 08/12/17 15:18 Triglycerides Level 67 mg/dl Cholesterol Level 187 mg/dl HDL Cholesterol 94 mg/dl LDL Cholesterol, Calculated 80 mg/dl VLDL Cholesterol, Calculated 13 mg/dl Cholesterol/HDL Ratio 2.0 Procalcitonin < 0.05 ng/ml White Blood Count 3.66 K/uL Red Blood Count 3.94 M/uL Hemoglobin 12.3 g/dL Hematocrit 35.8 % Mean Corpuscular Volume 90.9 fL Mean Corpuscular Hemoglobin 31.2 pg Mean Corpuscular Hemoglobin Concent 34.4 g/dl Platelet Count 130 K/uL Mean Platelet Volume 10.7 fL Neutrophils (%) (Auto) 32.6 % Lymphocytes (%) (Auto) 28.1 % Monocytes (%) (Auto) 9.0 % Eosinophils (%) (Auto) 29.2 % Basophils (%) (Auto) 1.1 % Neutrophils # (Auto) 1.19 K/uL Lymphocytes # (Auto) 1.03 K/uL Monocytes # (Auto) 0.33 K/uL Eosinophils # (Auto) 1.07 K/uL Basophils # (Auto) 0.04 K/uL RDW Standard Deviation 44.5 fL RDW Coefficient of Variation 13.5 % Immature Granulocyte % (Auto) 0.0 % Immature Granulocyte # (Auto) 0.00 K/uL Sodium Level 137 mmol/L Potassium Level 3.9 mmol/L Chloride Level 105 mmol/L Carbon Dioxide Level 27 mmol/L Anion Gap 5.0 mmol/L Blood Urea Nitrogen 17 mg/dl Creatinine 0.61 mg/dl Est Creatinine Clear Calc Drug Dose 60.8 ml/min Estimated GFR () 93.2 Estimated GFR (Non- 80.4 BUN/Creatinine Ratio 27.4 Random Glucose 85 mg/dl Estimated Average Glucose 108 mg/dl Hemoglobin A1c 5.4 % Calcium Level 8.5 mg/dl Phosphorus Level 4.1 mg/dl Magnesium Level 2.0 mg/dl Total Bilirubin 0.6 mg/dl Aspartate Amino Transf (AST/SGOT) 15 U/L Alanine Aminotransferase (ALT/SGPT) 21 U/L Alkaline Phosphatase 41 U/L Total Protein 5.5 gm/dl Albumin 3.1 gm/dl Globulin 2.4 gm/dl Albumin/Globulin Ratio 1.3 Erythrocyte Sedimentation Rate 2 mm/hr C-Reactive Protein 0.57 mg/dl Immunoglobulin G 422.0 mg/dL Immunoglobulin A 75.5 mg/dL Immunoglobulin M 36.5 mg/dL CLINICAL HISTORY: 87 years-old Female presenting with EVALUATE RESPIRATORY DISTRESS.DYSPNEA. TECHNIQUE: Portable upright AP view of the chest was obtained. COMPARISON: 08/07/2017. FINDINGS: Cardiomediastinal silhouette normal. Previous study demonstrated right middle lobe collapse better appreciated on prior CT from 08/10/2017. Degenerative changes of the thoracic spine. 2 fixation anchors noted in the left humeral head. Upper abdomen normal. IMPRESSION: 1. No acute cardiopulmonary disease. Electronically signed by: Jm Allen M.D. 08/11/2017 2:38 PM Dictated Date/Time: 08/11/2017 2:26 PM The status of this r Assessment & Plan 87-year-old female with evidence of right middle lobe obstruction with collapse of right middle lobe, but no obvious signs or symptoms of infectious process. Certainly she is at risk for multiple unusual organisms given travel in exposure history. Agree that we should wait for bronchoscopy given lack of clinical symptoms. Discussed with Pulmonary, await further culture results, lab work, and bronchoscopy results. Will follow.
[2017-08-12] MEDS: GABAPENTIN 400 MG CAP PO SCH (20:29)
[2017-08-12] MEDS: ATORVASTATIN 10 MG TAB PO SCH (20:29)
[2017-08-12] MEDS: SODIUM CHLORIDE 0.9% 1000ML 1,000 ML IV SCH ×2 (20:35→21:13)
[2017-08-13] VITALS (25 sets, daily range): BP systolic 96–197; BP diastolic 41–119; PULSE 57–87; TEMP 36.7–37; O2SAT 91–99
[2017-08-13] MEDS: IPRATROPIUM BROMIDE NEB SOLN 0.02% 2.5 ML VIAL INH SCH ×4 (01:56→18:45)
[2017-08-13] MEDS: LEVALBUTEROL 0.63MG/3 ML NEB INH SCH ×4 (01:56→18:45)
[2017-08-13] MEDS: HEPARIN SOD 5000 UNIT/0.5 ML CARP SQ SCH ×3 (06:24→21:18)
--- NOTE | 2017-08-13 09:00 | Pulmonology Progress Note ---
Pulmonary Progress Note Date of Service Aug 13, 2017. Attending Dr. Vaughn Subjective Patient seen and examined at bedside. She still has dry intermittently productive cough. She still has some mild pleuritic chest pain with deep inspiration. Her main complaint is feeling weak. Objective VS reviewed. CVS: S1, S2, RRR Lungs: crackles bilaterally Abd: soft/NT/ND/BS+ Ext: no edema bilateral LE, no cyanosis, no clubbing. Labs reviewed Imaging reviewed. Medications reviewed. Assessment & Plan Chronic cough Right middle lobe atelectasis Pneumonia Hypogammaglobinemia Patient has had chronic cough for the last 4-5 weeks. She was empirically treated with antibiotics and prednisone as an outpatient. At the current time, the differential includes infectious in etiology, an allergic versus inflammatory phenomenon ie. hypersensitivity pneumonitis, chronic eosinophilic pneumonia, ABPA, MAC infection as she does have right middle lobe atelectasis or community acquired pneumonia. We also need to rule out an obstructive lesion causing atelectasis as well. Currently on respiratory isolation to rule out TB. She is currently NPO, consent obtained for bronchoscopy. Recommendations Continue with bronchodilators when necessary. F/u Aspergillus IgG and IgE F/u 1, 3 beta galactomannan and QuantiFERON Pending. AFB pending, fungal culture and bacterial culture pending Blood cultures 2 pending. F/u hypersensitivity pneumonitis workup. Consider IgG repletion Will hold off on antibiotics pending bronchoscopy findings. Data Medications: Current Inpatient Medications Medications (Trade) Dose Ordered Sig/Clemente Route Start Time Stop Time Status Last Admin Dose Admin Heparin Sodium (Porcine) (Heparin Sq 5000 Unit/0.5ml) 5,000 unit Q8 SQ 08/11/17 22:00 09/10/17 21:59 08/13/17 06:24 5,000 UNIT Sodium Chloride 1,000 ml @ 25 mls/hr Q24H IV 08/11/17 21:13 09/10/17 21:12 08/11/17 23:38 25 MLS/HR Acetaminophen (Tylenol Tab) 650 mg Q4H PRN PO 08/11/17 21:15 09/10/17 21:14 08/12/17 09:35 650 MG Al Hydrox/Mg Hydrox/Simethicone (Maalox Max Susp) 15 ml Q4H PRN PO 08/11/17 21:15 09/10/17 21:14 Magnesium Hydroxide (Milk Of Magnesia Susp) 30 ml Q12H PRN PO 08/11/17 21:15 09/10/17 21:14 Zolpidem Tartrate (Ambien Tab) 5 mg HSZ PRN PO 08/11/17 21:15 09/10/17 21:14 Polyethylene (Miralax Powder Packet) 17 gm DAILY PRN PO 08/11/17 21:15 09/10/17 21:14 Miscellaneous Information (Order Awaiting Action) 1 ea QS N/A 08/12/17 00:00 09/11/17 00:00 Albuterol (Ventolin Hfa Inhaler) 2 puffs QID PRN INH 08/11/17 22:45 09/10/17 22:44 Atorvastatin Calcium (Lipitor Tab) 10 mg QPM PO 08/12/17 21:00 09/11/17 20:59 08/12/17 20:29 10 MG Benzonatate (Tessalon Perles Cap) 100 mg TID PRN PO 08/11/17 22:45 09/10/17 22:44 08/12/17 20:47 100 MG Gabapentin (Neurontin Cap) 400 mg HS PO 08/12/17 21:00 09/11/17 20:59 08/12/17 20:29 400 MG Loratadine (Claritin Tab) 10 mg DAILY PRN PO 08/11/17 22:45 09/10/17 22:44 Ipratropium [place] (Atrovent 0.02% 0.5MG/2.5ML Neb) 0.5 mg Q6R INH 08/12/17 03:00 09/11/17 02:59 08/13/17 06:58 0.5 MG Levalbuterol (Xopenex 0.63 Mg/ 3 Ml Neb) 0.63 mg Q6R INH 08/12/17 03:00 09/11/17 02:59 08/13/17 06:58 0.63 MG Vital Signs: Date Time Temp Pulse Resp B/P (MAP) Pulse Ox O2 Delivery O2 Flow Rate FiO2 08/13/17 07:40 37.0 74 20 122/68 (86) 91 Nasal Cannula 08/13/17 06:59 80 16 97 Room Air 08/13/17 04:19 36.9 69 16 96/58 (71) 92 08/13/17 04:00 Room Air 08/13/17 01:56 77 16 95 Room Air 08/13/17 00:15 36.7 74 18 126/76 (93) 95 08/13/17 00:00 Room Air 08/12/17 20:00 Room Air 08/12/17 19:59 36.7 82 19 136/63 (87) 92 Room Air 08/12/17 19:00 72 16 96 Room Air 08/12/17 15:57 Room Air 08/12/17 15:41 36.7 75 20 99/42 (61) 94 Room Air 08/12/17 14:18 64 16 95 Room Air 08/12/17 12:05 Room Air 08/12/17 11:33 36.8 63 20 145/76 (99) 94 Room Air 08/12/17 09:00 Room Air Laboratory Results: Last 24 Hours Test 08/12/17 15:18 Erythrocyte Sedimentation Rate 2 mm/hr C-Reactive Protein 0.57 mg/dl Immunoglobulin G 422.0 mg/dL Immunoglobulin A 75.5 mg/dL Immunoglobulin M 36.5 mg/dL
--- NOTE | 2017-08-13 09:58 | Pre Sedation Assessment ---
Pre Sedation Assessment General Date of Sedation: Aug 13, 2017. Vital Signs Past 12 Hours Date Time Temp Pulse Resp B/P (MAP) Pulse Ox O2 Delivery O2 Flow Rate FiO2 08/13/17 07:40 37.0 74 20 122/68 (86) 91 Nasal Cannula 08/13/17 06:59 80 16 97 Room Air 08/13/17 04:19 36.9 69 16 96/58 (71) 92 08/13/17 04:00 Room Air 08/13/17 01:56 77 16 95 Room Air 08/13/17 00:15 36.7 74 18 126/76 (93) 95 08/13/17 00:00 Room Air Review Cardiovascular: regular rate, rhythm, no edema, no murmur, normal peripheral pulses Lungs: no respiratory distress, no accessory muscle use, + crackles Pre-Sedation Airway Assessment Smoking Status: Never Smoker Hx of Sleep Apnea: Yes Hx of difficult intubation: No Short Thick Neck: No Thyro-mental Distance: > 3 Finger Breadths Mallampati Classification: Class II ASA Classification: Class II NPO Status Date of Last Intake of Fluids: Aug 13, 2017 Time of Last Intake of Fluids: 00:00 Date of Last Intake of Solids: Aug 13, 2017 Time of Last Intake of Solids: 00:00 Procedure Planning Contraindications for Sedation: None Current Medications Reviewed: Yes Notes The planned sedation has been discussed with the patient. Informed Consent was obtained. I have identified the patient, determined the appropriateness of sedation and have assessed the patient immediately prior to the procedure. All medicine(s) and interventions are by my order.
[2017-08-13] MEDS: FENTANYL CITRATE INJ 50 MCG/1 ML 2 ML VIAL ONE ×2 (10:45→11:12)
[2017-08-13] MEDS ORDERED: MIDAZOLAM HCL 1 MG/ML 2ML VIAL ONE ×3 (10:46→11:02)
[2017-08-13] MEDS ORDERED: FENTANYL CITRATE INJ 50 MCG/1 ML 2 ML VIAL ONE (11:03)
[2017-08-13] MEDS ORDERED: NURSING VERBAL MED ORDER ONE ×2 (11:12)
--- NOTE | 2017-08-13 12:07 | Procedure Note ---
Procedure Note Date of Service Aug 13, 2017. Procedure Note Procedure: Bronchoscopy, conscious sedation, Consent: Obtained through the patient placed into the chart Pre-procedural diagnosis: Right middle lobe atelectasis Post-procedural diagnosis: Right middle lobe atelectasis secondary to mucus plugging Analgesia: 2% liquid lidocaine: Via nebulizer 4% gel lidocaine: Via right naris 2% liquid lidocaine: Via bronchoscopy Sedation: Versed IV: 4 mg Fentanyl IV: 100 g Procedure: The Olympus video bronchoscope was used for this procedure and passed down through the left naris Left naris/posterior naris/posterior oropharynx: Anatomically within normal limits Glottis: Anatomically within normal limits Vocal cords: Proper abduction and abduction, anatomically within normal limits Subglottis/trachea/Elva: Anatomically within normal limits Right bronchial tree: Right mainstem bronchus: Anatomically within normal limits Right upper lobe: Thick mucus present, suctioned until clear Bronchus intermedius: Mucus present, suctioned until clear Right middle lobe: Right middle lobe total occluded with mucus plug. Patient given Mucomyst to decrease and break down mucus plugs. Suctioned numbers times until orifice clear. Friable edematous mucosa. Right lower lobe: Thick mucus present, suctioned until clear. Friable edematous mucosa. Findings: No endobronchial lesions seen. Left bronchial tree: Left mainstem bronchus: Anatomically within normal limits Left upper lobe: Anatomically within normal limits Lingula: Anatomically within normal limits Left lower lobe: Anatomically within normal limits Findings: No significant findings noted Bronchial alveolar lavage: RML. EBL: < 5 Complications: None Follow-up: In the [facility] Recommend starting patient on antibiotics for pneumonia.
--- NOTE | 2017-08-13 13:12 | DIAGNOSTIC IMAGING REPORT ---
CHEST 1 VW FRONT-NOT PORTABLE CLINICAL HISTORY: Post bronchoscopy study COMPARISON STUDY: 08/09/2017 FINDINGS: The heart is normal in size. There is radiographic evidence of emphysema. There is diffuse interstitial thickening which is likely chronic. More focal airspace opacities are present within the right lower lung zone. There is no pneumothorax.[ There are old rib fractures. IMPRESSION: 1. Emphysema 2. No evidence of pneumothorax status post thoracentesis 3. Suspected underlying interstitial lung disease 4. Focal airspace opacities within the right mid and lower lung zone Electronically signed by: Mono Mayer M.D. 08/13/2017 1:10 PM Dictated Date/Time: 08/13/2017 1:09 PM
[2017-08-13] MEDS: BENZONATATE 100MG CAP PO PRN (13:25)
--- NOTE | 2017-08-13 13:40 | Progress Note ---
Subjective Date of Service: Aug 13, 2017. Subjective Pt evaluation today including: conversation w/ patient, conversation w/ family , physical exam, chart review, conversation w/ executive talent acquisition consultant, review of inpatient medication list Pain: no PO Intake: good Voiding: no voiding problems Problem List Medical Problems: (1) Abrasion Status: Acute (2) Contusion Status: Acute (3) Contusion of multiple sites Status: Acute (4) Failure of outpatient treatment Status: Acute (5) Head injury Status: Acute (6) Lung collapse Status: Acute (7) Nasal bone fx-closed Status: Acute (8) Pneumonia Status: Acute (9) Skin tear Status: Acute Review of Systems Constitutional: + weakness, + fatigue, No fever, No chills, No sweats Respiratory: + cough, No sputum, No wheezing, No shortness of breath, No dyspnea on exertion, No dyspnea at rest Cardiac: No chest pain Abdomen: No pain, No nausea, No vomiting, No diarrhea Psychiatric: No depression symptoms Medications Medications (Trade) Dose Ordered Sig/Clemente Route Start Time Stop Time Status Last Admin Dose Admin Atorvastatin Calcium (Lipitor Tab) 10 mg QPM PO 08/12/17 21:00 09/11/17 20:59 08/12/17 20:29 10 MG Gabapentin (Neurontin Cap) 400 mg HS PO 08/12/17 21:00 09/11/17 20:59 08/12/17 20:29 400 MG Fentanyl Citrate (Fentanyl Inj) 100 mcg STK-MED ONCE .ROUTE 08/13/17 10:45 08/13/17 10:46 DC 08/13/17 11:12 100 MCG Midazolam HCl (Versed Inj) 2 mg STK-MED ONCE .ROUTE 08/13/17 10:53 08/13/17 10:54 DC 08/13/17 11:12 2 MG Objective Vital Signs Date Time Temp Pulse Resp B/P (MAP) Pulse Ox O2 Delivery O2 Flow Rate FiO2 08/13/17 13:29 36.8 65 20 128/66 (86) 95 Nasal Cannula 3.0 08/13/17 13:15 Oxymask 08/13/17 12:29 37.0 75 22 131/67 (88) 96 3.0 08/13/17 12:11 82 18 132/70 92 Nasal Cannula 2.0 08/13/17 12:07 82 24 152/73 94 Nasal Cannula 4.0 12/24/17 12:03 78 22 132/67 91 8.0 08/13/17 11:59 80 24 153/86 93 10.0 93 08/13/17 11:55 81 17 136/107 98 15.0 98 08/13/17 11:50 87 16 197/100 98 Oxymask 15.0 08/13/17 11:46 84 20 193/83 96 Oxymask 15.0 08/13/17 11:40 83 17 195/102 97 Oxymask 15.0 08/13/17 11:35 84 18 183/119 98 Oxymask 15.0 08/13/17 11:29 78 14 193/101 99 Oxymask 15.0 08/13/17 11:24 78 14 196/102 99 Oxymask 15.0 08/13/17 11:17 72 24 169/89 97 Oxymask 15.0 08/13/17 07:40 37.0 74 20 122/68 (86) 91 Nasal Cannula 08/13/17 06:59 80 16 97 Room Air 08/13/17 04:19 36.9 69 16 96/58 (71) 92 08/13/17 04:00 Room Air 08/13/17 01:56 77 16 95 Room Air 08/13/17 00:15 36.7 74 18 126/76 (93) 95 08/13/17 00:00 Room Air 08/12/17 20:00 Room Air 08/12/17 19:59 36.7 82 19 136/63 (87) 92 Room Air 08/12/17 19:00 72 16 96 Room Air 08/12/17 15:57 Room Air 08/12/17 15:41 36.7 75 20 99/42 (61) 94 Room Air 08/12/17 14:18 64 16 95 Room Air Physical Exam General Appearance: no apparent distress Eyes: EOMI Neck: supple, no adenopathy Cardiovascular: regular rate, rhythm, no gallop, no JVD, no murmur Abdomen: soft, no organomegaly Extremities: normal inspection, no pedal edema Neurologic/Psychiatric: normal mood/affect, oriented x 3 Skin: no rash Laboratory Results Last 24 Hours Test 08/12/17 15:18 08/13/17 11:40 Erythrocyte Sedimentation Rate 2 mm/hr C-Reactive Protein 0.57 mg/dl Immunoglobulin G 422.0 mg/dL Immunoglobulin A 75.5 mg/dL Immunoglobulin M 36.5 mg/dL Assessment and Plan 87-year-old female presented to the ED with non-resolving right-sided pneumonia with CAT scan finding of Opacification of the right middle lobe bronchus with complete collapse of the right middle lobe, ground glass opacity RLL, fibrotic lung disease/ granulomatous underlying disease,differential are actinomyces, Rhodococcus equi pneumonia, Mycobacterium avium complex lung disease Plan: -- Since patient does not look toxic, no leukocytosis, no fever, no tachycardia no antibiotics for now will wait for ID input and blood cultures. -- Last antibiotic was taken as an outpatient 3 weeks ago,1 dose of cefepime in ED. -- pending fungal sputum smear/culture, fungi tell, D galactomannan in urine rule out underlying fungal disease -- pending sputum AFB for 2 reasons she has the right exposure and she has an underlying granulomatous scarring in the lung, and other reason if she has currently lung mass or any -- immune compromised factor that might lead to activation of any previous TB that was dormant -- Continue airborne isolation for safety of staff although my suspicion is low -- pending ID input -- Bronchodilators --s/p bronchoscopy and mucus plugs extraction --post bronchoscopy patient feel little week, fatigue and tired. -- will d/c [place]. DVT prophylaxis with heparin Continued [facility] stay due to: home environment unsafe for pt Discharge planning: home
[2017-08-13] MEDS: AZITHROMYCIN IV 500 MG in DEXTROSE 5% 250ML 250 ML IV SCH (16:12)
[2017-08-13] MEDS: CEFTRIAXONE SOD INJ 1 GM in DEXTROSE 5% ADD-VANTAGE 50ML 50 ML IV SCH (18:37)
[2017-08-13] MEDS: GABAPENTIN 400 MG CAP PO SCH (21:10)
[2017-08-13] MEDS: ATORVASTATIN 10 MG TAB PO SCH (21:10)
[2017-08-13] MEDS: ACETAMINOPHEN 325 MG TAB PO PRN (21:19)
[2017-08-13] MEDS: POLYETHYLENE (MIRALAX) 17 GM PACK PO PRN (21:23)
[2017-08-14] VITALS (11 sets, daily range): BP systolic 110–158; BP diastolic 53–70; PULSE 59–80; TEMP 36.4–37.3; O2SAT 92–98
[2017-08-14] MEDS: IPRATROPIUM BROMIDE NEB SOLN 0.02% 2.5 ML VIAL INH SCH ×4 (02:00→19:12)
[2017-08-14] MEDS: LEVALBUTEROL 0.63MG/3 ML NEB INH SCH ×4 (02:00→19:12)
[2017-08-14 05:48] LABS: HEMATOCRIT 36.1 % (37-47); HEMOGLOBIN 12.1 g/dL (12.0-16.0); MEAN CORPUSCULAR HEMOGLOBIN 31.2 pg (25-34); MEAN CORPUSCULAR HGB CONC 33.5 g/dl (32-36); MEAN PLATELET VOLUME 10.8 fL (7.4-10.4); PLATELET COUNT 122 K/uL (130-400); RED CELL DISTRIBUTION WIDTH CV 13.5 % (11.5-14.5); RED CELL DISTRIBUTION WIDTH SD 45.9 fL (36.4-46.3); WHITE BLOOD COUNT 5.08 K/uL (4.8-10.8)
[2017-08-14] MEDS: HEPARIN SOD 5000 UNIT/0.5 ML CARP SQ SCH ×3 (06:34→21:36)
[2017-08-14] MEDS: ACETAMINOPHEN 325 MG TAB PO PRN (10:27)
--- NOTE | 2017-08-14 12:27 | PULMONARY PROGRESS NOTE ---
DATE: 08/14/2017 ATTENDING PHYSICIAN: Dr Vaughn SUBJECTIVE: The patient seen and examined at bedside. Delightful elderly woman with right-sided pleuritic discomfort, persistent cough and shortness of breath. The patient underwent bronchoscopy with BAL yesterday with Dr. Vaughn and had significant mucoid impaction involving the right middle lobe. Mucomyst and saline were used and instilled and suctioned copious amount of mucus. The patient does not necessarily feel any different today, but is quite comfortable. At home, she takes care of her 2 horses and 2 cats and is quite physical with her activity. Someone is caring for the animals today. She persists with this chronic cough. There is a prior history of traumatic injury to the right chest and in [address] Page with left upper lobe consolidation. Multiple studies including cultures of the bronchial washings were sent for. 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 Aspergillus antibodies and IgE level are pending. In addition, QuantiFERON study for TB and 1-3 beta galactomannan are pending as well. I agree with Dr. Vaughn's differential. In the past, patient has had mild peripheral eosinophilia. Atypical infection including MAC, Aspergillus infection, and chronic eosinophilic pneumonia along with hypersensitivity pneumonia have to be ruled out. The patient currently is in contact isolation. OBJECTIVE: CURRENT VITAL SIGNS: Temperature 37, pulse 80 and regular, respiratory rate 16, blood pressure 110/59, O2 sat 93% on room air. SKIN: Warm and dry. HEENT: Atraumatic, normocephalic, PERRLA, EOMI. Conjunctivae pale. Sclerae nonicteric. Fundi grade 1 changes. NECK: Neck veins are not distended at 45 degrees. No evidence of adenopathy in the supra or infraclavicular areas. LUNGS: Coarse wheezes, especially right midaxillary posterior lung field, but also audible on the left. CARDIAC: Regular rate and rhythm. I do not appreciate gallop. ABDOMEN: Soft, scaphoid. No evidence of hepatosplenomegaly. EXTREMITIES: No significant pedal edema, clubbing or cyanosis. NEUROLOGIC: Intact. LABORATORY DATA: Chest x-ray from 08/13/2017 post-procedure shows changes of emphysema. There may be underlying interstitial lung disease and right middle and lower lung zone opacities are audible. There is still some evidence for right middle lobe atelectasis. Cultures are pending at the time of this dictation. OVERALL ASSESSMENT AND PLAN: Right middle lobe atelectasis with mucoid impaction/bronchopneumonia/hypogammaglobulinemia. The patient is still too bronchospastic to be discharged, still waiting on culture results and results of the studies mentioned above. The patient is currently on IV ceftriaxone and azithromycin. I would not be surprised if patient has allergic bronchopulmonary aspergillosis to explain previous CT scanning and current findings. I agree with aerosolized bronchodilator, we would add vibration vest to her regimen, and patient may benefit actually from inhaled Mucomyst 4 mL at 20% via nebulizer once or twice daily along with utilization of 7% normal saline to help with pulmonary toilet in addition to current aerosolized bronchodilator. I do not see steroid therapy and I would place patient on 40 mg of prednisone and keep her on that dosage pending clinical improvement when can slowly taper. I would be happy to see patient as an outpatient once discharged as I believe in addition to her acute presentation, she has had chronic symptomatology and needs to be followed closely. FOX
--- NOTE | 2017-08-14 13:41 | Progress Note ---
Subjective Date of Service: Aug 14, 2017. Subjective Pt feels improved but has right chest pain with deep inspiration, and is not able to take full breaths, otherwise has good appetite and is feeling improved Problem List Medical Problems: (1) Abrasion Status: Acute (2) Contusion Status: Acute (3) Contusion of multiple sites Status: Acute (4) Failure of outpatient treatment Status: Acute (5) Head injury Status: Acute (6) Lung collapse Status: Acute (7) Nasal bone fx-closed Status: Acute (8) Pneumonia Status: Acute (9) Skin tear Status: Acute Review of Systems Constitutional: + weakness, No fever, No chills, No fatigue Respiratory: + cough, + shortness of breath, + dyspnea on exertion Cardiac: + chest pain, No orthopnea, No PND Abdomen: No pain, No vomiting Musculoskeletal: No joint pain, No muscle pain Female : No dysuria, No urinary frequency Objective Vital Signs Date Time Temp Pulse Resp B/P (MAP) Pulse Ox O2 Delivery O2 Flow Rate FiO2 08/14/17 12:12 37.0 59 18 131/60 (83) 94 Room Air 08/14/17 08:10 37.0 80 16 110/59 (76) 93 Room Air 08/14/17 07:10 68 16 94 Nasal Cannula 3.0 08/14/17 04:34 36.4 63 18 121/58 (79) 95 Room Air 08/14/17 04:00 Room Air 08/14/17 02:00 65 16 98 Nasal Cannula 3.0 08/14/17 00:13 36.8 70 20 115/68 (84) 96 Nasal Cannula 3.0 08/13/17 23:59 Room Air 08/13/17 20:00 Room Air 08/13/17 19:22 36.7 86 19 134/68 (90) 95 Nasal Cannula 3.0 08/13/17 18:45 71 16 97 Nasal Cannula 3.0 08/13/17 17:44 113/41 (65) 94 Nasal Cannula 2.0 08/13/17 16:00 Room Air 08/13/17 15:11 36.7 84 20 143/75 (97) 96 Nasal Cannula 3.0 08/13/17 14:33 80 16 97 Room Air 08/13/17 14:00 57 20 145/64 (91) 96 Physical Exam General Appearance: WD/WN, + mild distress Eyes: normal inspection, sclerae normal Respiratory/Chest: chest non-tender, + decreased breath sounds, + rales (right base) Cardiovascular: regular rate, rhythm, no murmur Abdomen: normal bowel sounds, non tender, soft Neurologic/Psychiatric: alert, oriented x 3 Laboratory Results Last 24 Hours Test 08/14/17 04:20 08/14/17 05:31 White Blood Count 5.08 K/uL Red Blood Count 3.88 M/uL Hemoglobin 12.1 g/dL Hematocrit 36.1 % Mean Corpuscular Volume 93.0 fL Mean Corpuscular Hemoglobin 31.2 pg Mean Corpuscular Hemoglobin Concent 33.5 g/dl RDW Standard Deviation 45.9 fL RDW Coefficient of Variation 13.5 % Platelet Count 122 K/uL Mean Platelet Volume 10.8 fL Assessment and Plan 87-was referred to the hospital after a Chest CT showed Opacification of the right middle lobe bronchus with complete collapse of the right middle lobe, ground glass opacity RLL, fibrotic lung disease/ granulomatous underlying disease, pt had a bronchoscopy 08/13 with removal of mucus plug and recommendation of treatment of pneumonia Right middle lobe collapse, mucus plug, pneumonia -- Bronchodilators, incentive spironometer, and attempts at titrating oxygen to off -- Pt still with a fair amount of pleuritic chest pain that limits inspiration and chest expansion Cerebrovascular disease, will continue aspirin and statin Neuropathy, will continue Neurontin DVT prophylaxis with heparin Continued [facility] stay due to: home environment unsafe for pt Discharge planning: home
[2017-08-14] MEDS: AZITHROMYCIN IV 500 MG in DEXTROSE 5% 250ML 250 ML IV SCH (15:38)
[2017-08-14] MEDS: CEFTRIAXONE SOD INJ 1 GM in DEXTROSE 5% ADD-VANTAGE 50ML 50 ML IV SCH (18:22)
[2017-08-14] MEDS: SODIUM CHLORIDE 0.9% 1000ML 1,000 ML IV SCH ×2 (21:13→21:37)
[2017-08-14] MEDS: POLYETHYLENE (MIRALAX) 17 GM PACK PO PRN (21:23)
[2017-08-14] MEDS: ATORVASTATIN 10 MG TAB PO SCH (21:24)
[2017-08-14] MEDS: GABAPENTIN 400 MG CAP PO SCH (21:24)
[2017-08-14] MEDS: BENZONATATE 100MG CAP PO PRN (21:24)
[2017-08-15] VITALS (7 sets, daily range): BP systolic 120–142; BP diastolic 64–76; PULSE 60–79; TEMP 36.5–37.4; O2SAT 92–98
[2017-08-15] MEDS: IPRATROPIUM BROMIDE NEB SOLN 0.02% 2.5 ML VIAL INH SCH ×3 (01:49→14:23)
[2017-08-15] MEDS: LEVALBUTEROL 0.63MG/3 ML NEB INH SCH ×3 (01:49→14:23)
[2017-08-15] MEDS: HEPARIN SOD 5000 UNIT/0.5 ML CARP SQ SCH ×2 (05:40→13:40)
[2017-08-15] MEDS: ACETAMINOPHEN 325 MG TAB PO PRN (08:09)
--- NOTE | 2017-08-15 12:18 | PULMONARY PROGRESS NOTE ---
DATE: 08/15/2017 SUBJECTIVE: The patient was examined and chart was reviewed. She is not as painful involving the right chest with deep inspiration and continues to cough and feels somewhat congested. OBJECTIVE: VITAL SIGNS: Temperature 36.8, pulse 65 and regular, respiratory rate 20, blood pressure 120/54, O2 sat 94% on room air. SKIN: Without lesion. HEENT: Atraumatic, normocephalic. PERRLA. LUNGS: Scattered wheeze and rhonchi, but less bronchospastic today involving the right posterior lung field and left base than yesterday. CARDIAC: Regular rate and rhythm. I do not appreciate a gallop. ABDOMEN: Soft, scaphoid. EXTREMITIES: No pedal edema, clubbing or cyanosis. NEUROLOGIC: Intact. No lateralizing signs. LABORATORY DATA: Mild peripheral eosinophilia. Serum albumin 3.1. The patient is markedly hypogammaglobulinemic with a value of 422 mg per dekaliter with IgE level pending. Bronchial washings are growing a fungus with identification to follow. 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 I believe patient is a candidate long-term for IVIG supplementation or Hizentra subQ if patient persistently demonstrates hypogammaglobulinemia, and in addition to steroid therapy, aerosolized bronchodilator area and pulmonary toilet, may require voriconazole down the road in addition to our current therapy. We will await IgE level and precipitin antibodies to Aspergillus.
[2017-08-15] MEDS ORDERED: VORICONAZOLE 200 MG TAB PO SCH (13:22)
[2017-08-15] MEDS: AZITHROMYCIN IV 500 MG in DEXTROSE 5% 250ML 250 ML IV SCH (13:37)
[2017-08-15] MEDS ORDERED: VFND200 PO (14:05)
[2017-08-15] MEDS ORDERED: ATRINS INH (14:05)
[2017-08-15] MEDS ORDERED: AZIT250T PO (14:05)
[2017-08-15] MEDS ORDERED: VNTHFA/IN INH (14:05)
--- NOTE | 2017-08-15 14:08 | Discharge Instructions ---
Discharge Instructions Date of Service Aug 15, 2017. Admission Reason for Admission: Pneumonia Discharge Discharge Diagnosis / Problem: pneumonia Discharge Goals Goal(s): Diagnostic testing, Therapeutic intervention Activity Recommendations Activity Limitations: as noted below Lifting Limitations: gradually increase as tolerated . Instructions / Follow-Up Instructions / Follow-Up Follow up with Dr Cooney 08/16/17 at 130 pm, [address] While you are taking Vorconizole you need to NOT take your lipitor( Atorvostatin ) as they may interact Current Hospital Diet Patient's current hospital diet: Regular Diet Discharge Diet Recommended Diet: Regular Diet Pending Studies Studies pending at discharge: yes List of pending studies: imunoglobulin levels Laboratory Results Hemoglobin A1c Test 08/12/17 05:50 Range/Units Estimated Average Glucose 108 mg/dl Hemoglobin A1c 5.4 4.5-5.6 % Lipid Panel Test 08/11/17 21:44 Range/Units Triglycerides Level 67 0-150 mg/dl Cholesterol Level 187 0-200 mg/dl HDL Cholesterol 94 mg/dl Cholesterol/HDL Ratio 2.0 LDL Cholesterol, Calculated 80 mg/dl Medical Emergencies . Who to Call and When: Medical Emergencies: If at any time you feel your situation is an emergency, please call 911 immediately. . Non-Emergent Contact Non-Emergency issues call your: Head Transfer Clerk Call Non-Emergent contact if: temperature is above 101, your pain is unusual for you . . "Provider Documentation" section prepared by Gallo Fine. . VTE Core Measure Inpt VTE Proph given/why not?: Unfractionated heparin SQ
--- NOTE | 2017-08-15 17:05 | Discharge Summary ---
Discharge Summary Date of Service Aug 15, 2017. Discharge Summary Admission Date: Aug 11, 2017 at 21:18 Discharge Date: Aug 15, 2017 Discharge Disposition: Home Principal Diagnosis: pneumonia consider fungal, possible immunoglobin deficiency Immunizations: Have You Had Influenza Vaccine: Yes Influenza Vaccine Date: Jun 18, 2013 History of Tetanus Vaccine?: Unknown Tetanus Immunization Date: Sep 20, 2004 History of Pneumococcal: Yes Pneumococcal Date: Jul 19, 2011 History of Hepatitis B Vaccine: Unknown Procedures: Bronchoscopy 08/13 Consultations: Pulmonary medicine and ID Medication Reconciliation New Medications: Azithromycin (Zithromax) 250 Mg Tab 250 MG PO DAILY, #4 TAB Ipratropium [place] (Ipratropium [place]) 0.5 Mg/2.5 Ml Nebu 0.5 MG INH QID, #1 INHALER Voriconazole (Voriconazole) 200 Mg Tab 200 MG PO BID, #28 TAB Continued Medications: Acetaminophen (Tylenol) 500 Mg Tab 500 MG PO DIRECTED PRN for Pain, TAB Albuterol Hfa (Ventolin Hfa) 200 Puffs/10796 Mcg Aers 2 PUFFS INH QID, #1 INHA (This prescription has been renewed) Aspirin (Aspirin Chewable) 81 Mg Chew 81 MG PO QPM Benzonatate (Benzonatate) 100 Mg Cap 1-2 CAP PO TID PRN for Cough Etpcwwz-Axndbpimo-Xfjs (Calcium Magnesium & Zinc) 1 Tab Tab 1 TAB PO NOON Cholecalciferol (Vitamin D3) 1,000 Unit Tab 1 TAB PO QAM, TAB Cyanocobalamin (Vitamin B12) 1,000 Mcg Tab 1 TAB PO QAM Fish Oil ([place]-3) 1 Ea Cap 1 CAP PO QAM, CAP Gabapentin (Neurontin) 100 Mg Cap 400 MG PO HS, CAP Loratadine (Claritin) 10 Mg Tab 10 MG PO DAILY PRN for ALLERGY, TAB Melatonin (Melatonin Maximum Strengt) 5 Mg Tab 1 TAB PO HS PRN for Sleep, TAB Meloxicam (Mobic) 7.5 Mg Tab 7.5 MG PO QAM, TAB Discontinued Medications: Albuterol (Ventolin Hfa) 60 Puffs/5400 Mcg Aers 2 PUFFS INH PRN Atorvastatin (Lipitor) 10 Mg Tab 10 MG PO QPM, TAB Discharge Exam Review of Systems: Constitutional: No fever, No chills Respiratory: + cough, + sputum Cardiovascular: + chest pain Abdomen: No pain, No nausea, No vomiting Musculoskeletal: No joint pain, No muscle pain Neurologic: No memory loss, No paralysis Psychiatric: No depression symptoms, No anhedonism Physical Exam: General Appearance: WD/WN, + mild distress Eyes: normal inspection, sclerae normal Respiratory/Chest: + decreased breath sounds (bibasilar, but no air loss or wheezing) Cardiovascular: regular rate, rhythm, no murmur Abdomen / GI: normal bowel sounds, non tender, soft Extremities: no pedal edema, normal range of motion Neurologic/Psychiatric: alert, oriented x 3 Hospital Course 87-was referred to the hospital after a Chest CT showed Opacification of the right middle lobe bronchus with complete collapse of the right middle lobe, ground glass opacity RLL, fibrotic lung disease/ granulomatous underlying disease, pt had a bronchoscopy 08/13 with removal of mucus plug and recommendation of treatment of pneumonia Right middle lobe collapse, mucus plug, pneumonia, one bronchoscopic culture has fungal elements, started on vorconizole and will have outpt follow up will continue to finish course of azithromycin -- Bronchodilators, incentive spironometer, and able to titrate oxygen to off -- Pt with great improvement of pleuritic chest pain and does not want any home opiates for pain control Cerebrovascular disease, will continue aspirin will need to hold statin while on voriconazole Neuropathy, no complaints will continue Neurontin Follow up arranged by myself calling and having appointment with Dr Cooney at 130 Total Time Spent: Greater than 30 minutes This includes examination of the patient, discharge planning, medication reconciliation, and communication with other providers. Discharge Instructions Please refer to the electronic Patient Visit Report (Discharge Instructions) for additional information. Additional Copies To Keith Cooney M.D.
[2017-08-17 08:47] LABS: QUANTIF MITOGEN-NIL 7.38 IU/ML; QUANTIFERON NEGATIVE (NEGATIVE); QUANTIFERON NIL 0.02 IU/ML
--- NOTE | 2017-08-18 09:20 | EDITING REQUIRED CODING QUERY ---
CODING QUERY To promote full compliance with coding requirements relating to patient care, provider participation is requested in all cases of transportation design engineer uncertainty. Please assist us with the question(s) below: Coding Question(s): Patient admitted with pneumonia and atelectasis with mucoid impaction of right middle lobe lung. BAL done with bronchial washings finaled 08/16 revealing aspergillosis. Please check below the diagnosis you were treating during this Inpatient Stay. Thank you! Bernard Mayes INSPECTOR [employer]PERIMENT[employer]SEM[employer] [facility] Physician's Response(s): Allergic bronchopulmonary aspergillosis Pneumonia ___xx Cannot Clinically Correlate Other/ Please document: Principal Diagnosis: "_that condition established after study, to be chiefly responsible for occasioning the admission of the patient to the hospital for care." Co-Existing Principal Diagnosis: "_when two or more diagnoses equally meet the criteria for principal diagnosis as determined by the circumstances of admission, diagnostic work up, and/or therapy provided, and the Alphabetic Index, Tabular List, or another coding guideline does not provide sequencing direction, any one of the diagnoses may be sequenced first." "When the physician has documented what appears to be a current diagnosis in the body of the record, but has not included the diagnosis in the final diagnostic statement, the physician should be asked whether the diagnosis should be added." (Source Coding Clinic 2 QTR90. p3-4)
[2017-09-08 14:17] LABS: HERPES SIMPLEX VIRUS CULT NOT ISOLATED (NOT ISOLATED)
== END 2017-08-15 15:45 | disposition home or self-care (01) | DRG 164 ==
LOC: C.EDB 13:55 → C.2E 21:18 → ENRESERV 21:33
PROVIDERS: ADMIT Internal Medicine; ATTEND Internal Medicine
PROC: 0B9D8ZX Drainage of Right Middle Lung Lobe, Via Natural or Artificial Opening Endoscopic, Diagnostic (ICD-10-PCS; principal; 2017-08-13)
PROC: 0BCD8ZZ Extirpation of Matter from Right Middle Lung Lobe, Via Natural or Artificial Opening Endoscopic (ICD-10-PCS; principal; 2017-08-13)
DX: J16.8 Pneumonia due to other specified infectious organisms (principal); B49 Unspecified mycosis; J98.11 Atelectasis; D80.9 Immunodeficiency with predominantly antibody defects, unspecified; T17.890A Other foreign object in other parts of respiratory tract causing asphyxiation, initial encounter; Z86.73 Personal history of transient ischemic attack (TIA), and cerebral infarction without residual deficits; Z79.82 Long term (current) use of aspirin; J84.10 Pulmonary fibrosis, unspecified; G62.9 Polyneuropathy, unspecified; X58.XXXA Exposure to other specified factors, initial encounter; Y92.019 Unspecified place in single-family (private) house as the place of occurrence of the external cause

== ENCOUNTER 2017-09-21 09:58 | Emergency (ER) | payer OTHER ==
[~2017-09-21] VITALS: Ht 170.2 cm; Wt 70.0 kg
[~2017-09-21 09:58] MED LIST changes: -ATOR10TA82 PO; +ATRINS INH; +AZIT250T PO; +BENZ100C7 PO; -COUGH MEDICINE PO; -PRVHFAIN INH; -SYMBICORT INH; +VFND200 PO; +VNTHFA/IN INH
[2017-09-21 10:01] VITALS: TEMP 36.9; Ht 170.2 cm; Wt 70.0 kg
[2017-09-21] MEDS ORDERED: SYMIN160 INH (10:42)
[2017-09-21] MEDS ORDERED: PRED10TA PO (10:42)
[2017-09-21] MEDS ORDERED: IPRAT-ALBUT INH (10:42)
[2017-09-21] MEDS ORDERED: ATRINSX INH (10:42)
[2017-09-21] MEDS ORDERED: VORI1TAB13 PO (10:48)
[2017-09-21] MEDS ORDERED: VNTHFA/IN INH (10:48)
[2017-09-21 10:55] VITALS: O2SAT 96
[2017-09-21 11:05] LABS: HEMATOCRIT 37.4 % (37-47); HEMOGLOBIN 12.9 g/dL (12.0-16.0); MEAN CELL VOLUME 92.8 fL (80-100); MEAN CORPUSCULAR HGB CONC 34.5 g/dl (32-36); PLATELET COUNT 224 K/uL (130-400); RED CELL DISTRIBUTION WIDTH CV 14.6 % (11.5-14.5); RED CELL DISTRIBUTION WIDTH SD 49.6 fL (36.4-46.3)
--- NOTE | 2017-09-21 11:13 | DIAGNOSTIC IMAGING REPORT ---
CHEST ONE VIEW PORTABLE CLINICAL HISTORY: 87 years-old Female presenting with chest pain. TECHNIQUE: Portable upright AP view of the chest was obtained. COMPARISON: 08/13/2017. FINDINGS: Atherosclerosis of the aortic arch. Cardiac silhouette top normal in size. Lungs and pleural spaces clear. Degenerative changes of the thoracic spine. Degenerative changes of the right glenohumeral joint. [place] fixation in the left humeral head. Old right rib fractures. Upper abdomen normal. IMPRESSION: 1. No acute cardiopulmonary disease. Electronically signed by: Jm Allen M.D. 09/21/2017 11:12 AM Dictated Date/Time: 09/21/2017 11:09 AM
[2017-09-21 11:15] LABS: PTT PATIENT 21.9 SECONDS (21.0-31.0)
[2017-09-21 11:25] LABS: ALBUMIN 3.5 gm/dl (3.4-5.0); ALT/SGPT 63 U/L (12-78); AST/SGOT 40 U/L (15-37); BLOOD UREA NITROGEN 19 mg/dl (7-18); CALCIUM 8.1 mg/dl (8.5-10.1); CARBON DIOXIDE 25 mmol/L (21-32); GLUCOSE 252 mg/dl (70-99); POTASSIUM 4.2 mmol/L (3.5-5.1); SODIUM 128 mmol/L (136-145)
[2017-09-21 11:29] LABS: ALKALINE PHOSPHATASE 47 U/L (45-117); CKMB 2.7 ng/ml (0.5-3.6); TOTAL PROTEIN 6.4 gm/dl (6.4-8.2)
[2017-09-21] MEDS ORDERED: ACETAMINOPHEN 500 MG TAB PO STA (11:37)
[2017-09-21] MEDS ORDERED: OPTIRAY 320 IV PRN (11:45)
--- NOTE | 2017-09-21 12:37 | DIAGNOSTIC IMAGING REPORT ---
CT ANGIOGRAM OF THE CHEST CLINICAL HISTORY: Atypical chest pain. COMPARISON STUDY: Chest x-ray dated to. Chest CT scans dated 08/10/2017 and 02/09/2011. TECHNIQUE: Following the IV administration of 97 cc of Optiray 320, CT angiogram of the chest was performed from the upper abdomen to the thoracic inlet utilizing the pulmonary embolus protocol. Images are reviewed in the axial, sagittal, and coronal planes. 3-D MIPS images are created and assessed. IV contrast was administered without complication. A dose lowering technique was utilized adhering to the principles of ALARA. CT DOSE: 242.09 mGy.cm FINDINGS: Thyroid: Imaged portions of the thyroid gland are normal in size and attenuation. Thoracic aorta: There is mild atherosclerotic calcification of the thoracic aorta, which is normal in caliber and demonstrates standard 3-vessel arch anatomy. No dissection is seen. Pulmonary vasculature: The pulmonary trunk is normal in caliber. There are no filling defects identified in main, lobar, or segmental pulmonary branches to suggest pulmonary embolus. Heart: The heart is enlarged and without pericardial effusion. There are coronary artery calcifications. Lungs and pleural spaces: There are trace pleural effusions. No focal airspace consolidation is identified. Apical scarring is observed. Diffuse subpleural reticulation is present in both lungs. A 10 mm focus of groundglass change in the right upper lobe seen image #[id number] is new from 08/10/2017 almost certainly on an inflammatory basis. Additional small foci of ground glass change seen previously have resolved. Mediastinum: There is no mediastinal lymphadenopathy. Ekaterina: Clear. Axillae: There is no axillary lymphadenopathy. Upper abdomen: There is a small hiatal hernia. Calcified granulomas are identified in the liver and spleen. Skeletal structures: The skeletal structures are osteopenic. No lytic or blastic bony lesions are seen. Degenerative change is noted in the shoulders and thoracic spine. Postoperative change is seen in the left humeral head. IMPRESSION: 1. There is no evidence of pulmonary embolus in the main, lobar, or segmental pulmonary arteries. 2. Cardiomegaly. 3. Trace pleural effusions are identified. 4. There is no lobar consolidation. 5. A small focus of groundglass change in the right upper lobe is new from 08/10/2017 and almost certainly inflammatory. Previously identified foci of groundglass change seen on 08/10/2017 have resolved. 6. Additional findings as above. Electronically signed by: Dusty Carballo M.D. 09/21/2017 12:35 PM Dictated Date/Time: 09/21/2017 12:29 PM
[2017-09-21] MEDS ORDERED: LEVOFLOXACIN 500 MG TAB PO STA (13:42)
[2017-09-21] MEDS ORDERED: LEVO-366 PO (13:44)
[2017-09-21] MEDS ORDERED: LEVOFLOXACIN 250 MG TAB ONE (13:59)
[2017-09-21 14:22] VITALS: BP 156/81; PULSE 67; O2SAT 96
--- NOTE | 2017-09-21 14:25 | EMERGENCY ROOM VISIT NOTE ---
History Report prepared by Elliott: Jose A Myers Under the Supervision of: Dr. Danny Mcdonald M.D. First contact with patient: 11:08 Chief Complaint: CHEST PAIN Stated Complaint: CHEST PAIN, NOSE BLEED Nursing Triage Summary: pt to the ED with c/o nose bleed and right lung collapsed before peggy and has pain and has pain in right upper chest and feels similar to previously and hurts to breathe no SOB History of Present Illness The patient is a 87 year old female who presents to the Emergency Room with complaints of sharp right-sided chest pain that began three days ago. She rates her pain an 8/10 in severity. She has a past medical history of a right middle lobe pneumonia that occurred last month in July 2017. She states her pain feels similar to her pain associated with her pain when she had pneumonia. When her symptoms began, she woke up from sleep and began to have a nose bleed. Her chest pain then presented itself. Her chest pain is exacerbated with breathing. She has had an intermittent nose bleed every morning since. Pt denies LOC, headache, fevers, chills, diaphoresis, visual changes, neck pain, tearing pain radiating to the back, personal history or family history of aneurysm or pulmonary embolism, uncontrolled hypertension, breathing difficulties, leg swelling, coagulation abnormalities, prolonged travel, recent surgery or immobilization, nausea, vomiting, abdominal pain, melena, hematochezia, urinary symptoms, numbness, weakness, lymphadenopathy, rash, or other complaints. 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 She is currently tapering off of Prednisone with 9 more days. Source of History: patient Onset: three days ago Position: chest (right) Symptom Intensity: 8/10 Quality: sharp Timing: constant Modifying Factors (Worsening): breathing Note: She is experiencing intermittent epistaxis as well. Review of Systems See HPI for pertinent positives and negatives. A total of ten systems were reviewed and were otherwise negative. Past Medical & Surgical Medical Problems: (1) section (2) Hysterectomy (3) Shoulder surgery (4) TIA (transient ischemic attack) Family History Omitted secondary to the patient's age. Social History Smoking Status: Never Smoker Drug Use: none Marital Status: Occupation Status: retired Current/Historical Medications Scheduled Albuterol Hfa (Ventolin Hfa), 2 PUFFS INH QID Aspirin (Aspirin Chewable), 81 MG PO QPM Budesonide/Formoterol Fumarate (Symbicort 160/4.5 Inhaler), 2 PUFFS INH BID Wcqihcl-Ijavwpdup-Kqmi (Calcium Magnesium & Zinc), 1 TAB PO NOON Cholecalciferol (Vitamin D3), 1 TAB PO QAM Cyanocobalamin (Vitamin B12), 1 TAB PO QAM Gabapentin (Neurontin), 400 MG PO HS Ipratropium [place] (Atrovent 0.02% Soln), 1 DOSE INH QID Levofloxacin (Levaquin), 500 MG PO DAILY Meloxicam (Mobic), 7.5 MG PO QAM Prednisone (Prednisone), PO UD Voriconazole (Voriconazole), 200 MG PO BID [Iprat-Albut], 1 DOSE INH QID Scheduled PRN Loratadine (Claritin), 10 MG PO DAILY PRN for ALLERGY Melatonin (Melatonin Maximum Strengt), 1 TAB PO HS PRN for Sleep Allergies Coded Allergies: No Known Allergies (Verified , 09/21/17) Physical Exam Vital Signs Date Time Temp Pulse Resp B/P (MAP) Pulse Ox O2 Delivery O2 Flow Rate FiO2 09/21/17 13:28 69 09/21/17 13:06 64 18 138/81 98 Room Air 09/21/17 11:54 64 18 124/80 93 Room Air 09/21/17 10:55 96 Room Air 09/21/17 10:55 96 Room Air 09/21/17 10:25 75 09/21/17 10:10 96 Room Air 09/21/17 10:01 36.9 82 22 123/81 96 Physical Exam GENERAL: Awake, alert, well-appearing, in no distress HENT: Normocephalic, atraumatic. Oropharynx unremarkable. EYES: Normal conjunctiva. Sclera non-icteric. NECK: Supple. No nuchal rigidity. FROM. No JVD. RESPIRATORY: Clear to auscultation. CARDIAC: Regular rate, normal rhythm. Extremities warm and well perfused. Pulses equal. ABDOMEN: Soft, non-distended. No tenderness to palpation. No rebound or guarding. No masses. RECTAL: Deferred. MUSCULOSKELETAL: Chest examination reveals right-sided tenderness. The back is symmetrical on inspection without obvious abnormality. There is no CVA tenderness to palpation. No joint edema. LOWER EXTREMITIES: Calves are equal size bilaterally and non-tender. No edema. No discoloration. NEURO: Normal sensorium. No sensory or motor deficits noted. SKIN: No rash or jaundice noted. Medical Decision & Procedures ER Provider Diagnostic Interpretation: Radiology results as stated below per my review and radiologist interpretation: CHEST ONE VIEW PORTABLE CLINICAL HISTORY: 87 years-old Female presenting with chest pain. TECHNIQUE: Portable upright AP view of the chest was obtained. COMPARISON: 08/13/2017. FINDINGS: Atherosclerosis of the aortic arch. Cardiac silhouette top normal in size. Lungs and pleural spaces clear. Degenerative changes of the thoracic spine. Degenerative changes of the right glenohumeral joint. [place] fixation in the left humeral head. Old right rib fractures. Upper abdomen normal. IMPRESSION: 1. No acute cardiopulmonary disease. Electronically signed by: Jm Allen M.D. 09/21/2017 11:12 AM Dictated Date/Time: 09/21/2017 11:[address] ANGIOGRAM OF THE CHEST CLINICAL HISTORY: Atypical chest pain. COMPARISON STUDY: Chest x-ray dated . Chest CT scans dated 08/10/2017 and 02/09/2011. TECHNIQUE: Following the IV administration of 97 cc of Optiray 320, CT angiogram of the chest was performed from the upper abdomen to the thoracic inlet utilizing the pulmonary embolus protocol. Images are reviewed in the axial, sagittal, and coronal planes. 3-D MIPS images are created and assessed. IV contrast was administered without complication. A dose lowering technique was utilized adhering to the principles of ALARA. CT DOSE: 242.09 mGy.cm FINDINGS: Thyroid: Imaged portions of the thyroid gland are normal in size and attenuation. Thoracic aorta: There is mild atherosclerotic calcification of the thoracic aorta, which is normal in caliber and demonstrates standard 3-vessel arch anatomy. No dissection is seen. Pulmonary vasculature: The pulmonary trunk is normal in caliber. There are no filling defects identified in main, lobar, or segmental pulmonary branches to suggest pulmonary embolus. Heart: The heart is enlarged and without pericardial effusion. There are coronary artery calcifications. Lungs and pleural spaces: There are trace pleural effusions. No focal airspace consolidation is identified. Apical scarring is observed. Diffuse subpleural reticulation is present in both lungs. A 10 mm focus of groundglass change in the right upper lobe seen image #[id number] is new from 08/10/2017 almost certainly on an inflammatory basis. Additional small foci of ground glass change seen previously have resolved. Mediastinum: There is no mediastinal lymphadenopathy. Ekaterina: Clear. Axillae: There is no axillary lymphadenopathy. Upper abdomen: There is a small hiatal hernia. Calcified granulomas are identified in the liver and spleen. Skeletal structures: The skeletal structures are osteopenic. No lytic or blastic bony lesions are seen. Degenerative change is noted in the shoulders and thoracic spine. Postoperative change is seen in the left humeral head. IMPRESSION: 1. There is no evidence of pulmonary embolus in the main, lobar, or segmental pulmonary arteries. 2. Cardiomegaly. 3. Trace pleural effusions are identified. 4. There is no lobar consolidation. 5. A small focus of groundglass change in the right upper lobe is new from 08/10/2017 and almost certainly inflammatory. Previously identified foci of groundglass change seen on 08/10/2017 have resolved. 6. Additional findings as above. Electronically signed by: Dusty Carballo M.D. 09/21/2017 12:35 PM Dictated Date/Time: 09/21/2017 12:29 PM Laboratory Results 09/21/17 10:20 09/21/17 10:20 Test 09/21/17 10:20 Red Blood Count 4.03 M/uL (4.2-5.4) Mean Corpuscular Volume 92.8 fL (80-100) Mean Corpuscular Hemoglobin 32.0 pg (25-34) Mean Corpuscular Hemoglobin Concent 34.5 g/dl (32-36) RDW Standard Deviation 49.6 fL (36.4-46.3) RDW Coefficient of Variation 14.6 % (11.5-14.5) Mean Platelet Volume 11.0 fL (7.4-10.4) Prothrombin Time 10.6 SECONDS (9.0-12.0) Prothromb Time International Ratio 1.0 (0.9-1.1) Activated Partial Thromboplast Time 21.9 SECONDS (21.0-31.0) Partial Thromboplastin Ratio 0.8 Anion Gap 9.0 mmol/L (3-11) Est Creatinine Clear Calc Drug Dose 37.1 ml/min Estimated GFR () 57.8 Estimated GFR (Non- 49.9 BUN/Creatinine Ratio 19.3 (10-20) Calcium Level 8.1 mg/dl (8.5-10.1) Total Bilirubin 0.5 mg/dl (0.2-1) Aspartate Amino Transf (AST/SGOT) 40 U/L (15-37) Alanine Aminotransferase (ALT/SGPT) 63 U/L (12-78) Alkaline Phosphatase 47 U/L (45-117) Total Creatine Kinase 67 U/L (26-192) Creatine Kinase MB 2.7 ng/ml (0.5-3.6) Creatine Kinase MB Ratio 4.0 (0-3.0) Troponin I < 0.015 ng/ml (0-0.045) Total Protein 6.4 gm/dl (6.4-8.2) Albumin 3.5 gm/dl (3.4-5.0) Globulin 2.9 gm/dl (2.5-4.0) Albumin/Globulin Ratio 1.2 (0.9-2) Laboratory results reviewed by me Medications Administered Medications (Trade) Dose Ordered Sig/Clemente Route Start Time Stop Time Status Last Admin Dose Admin Acetaminophen (Tylenol Tab) 1,000 mg NOW STAT PO 09/21/17 11:37 09/21/17 11:38 DC 09/21/17 12:04 1,000 MG Levofloxacin (Levaquin Tab) 500 mg STK-MED ONCE .ROUTE 09/21/17 13:59 09/21/17 14:00 DC 09/21/17 14:03 500 MG ECG Indication: chest pain Rate (beats per minute): 81 Rhythm: sinus rhythm Findings: PAC, no acute ischemic change Change: ECG interpreted by me ED Course 1108: The patient was evaluated in room A3. A complete history and physical exam was performed. 1137: Ordered Tylenol Tab 1000 mg PO Medical Decision Triage Nursing notes reviewed. The patient's presentation and history were concerning for right sided chest pain. Etiologies such as cardiac ischemia, aortic dissection, pulmonary embolism, pneumonia, pneumothorax, musculoskeletal, infections, gastrointestinal, as well as others were entertained. The patient was evaluated. Clinically she was doing well. She has had constant pain for 3 days. Her ECG and chest x-ray were unremarkable. Blood work was unremarkable as well. The patient underwent CT imaging of her chest and this revealed a finding in the right upper lobe. She had groundglass opacity present. This was small. I suspect that this may be a mild pneumonitis. She does have pleuritic-like chest pain. I discussed treating her with Levaquin. This first dose was given in the Emergency Room. The patient also noted some bloody noses. Her nose examination was unremarkable. She had no active bleeding. Septum looked normal. Conservative management was discussed about that issue. The patient had an appointment set with a primary physician through case management at 2 PM tomorrow. If she worsens in any way she will be back. By the evaluation outlined above other emergent etiologies such as those listed in the differential, as well as others, were deemed relatively unlikely. The patient was educated about the findings as listed above. All questions were answered and the patient was pleased with the treatment. Return instructions were outlined and the patient was discharged in stable condition. The patient was referred to her PCP for follow-up for a recheck of the current condition. Medication Reconcilliation Current Medication List: was personally reviewed by me Blood Pressure Screening Patient's blood pressure: Normal blood pressure Blood pressure disposition: Did not require urgent referral Impression Primary Impression: Pneumonitis Additional Impression: Right-sided chest pain Scribe Attestation The scribe's documentation has been prepared under my direction and personally reviewed by me in its entirety. I confirm that the note above accurately reflects all work, treatment, procedures, and medical decision making performed by me. Departure Information Dispostion Home / Self-Care Prescriptions Levofloxacin (Levaquin) 500 Mg Tab 500 MG PO DAILY for 5 Days, #5 TAB Prov: Danny Mcdonald MD 09/21/17 Referrals Ora Matthews M.D. (PCP) Patient Instructions My [facility] Additional Instructions Levafloxacin(Levaquin) 500mg: Take one pill daily for 5 more days for your infection. All antibiotics can cause diarrhea. If this occurs and you feel worse or it does not resolve in 1-2 days follow up with your doctor or return to the Emergency Department as this could be signs of serious underlying problems. Any medication can cause an allergic reaction, stop the pills immediately and return to the ER for rash, hives, breathing difficulties, or swelling. Acetaminophen(Tylenol) may be used for fever or pain. Use 1000mg every six hours as needed. Avoid using more than 4000mg in a 24 hour period. Rest and drink plenty of fluids. Avoid strenuous activity until your symptoms resolve and your breathing returns to normal. Return to the ER for chest pain, difficulty breathing, persistent fevers, vomiting, worsening of your condition, or as needed. Follow up with your primary physician tomorrow at 2 PM for a recheck of the current condition. Problem Qualifiers
== END 2017-09-21 14:24 | disposition home or self-care (01) ==
LOC: C.EDB 09:59 → C.EDA 14:24
DX: J18.9 Pneumonia, unspecified organism (principal); R07.9 Chest pain, unspecified; I51.7 Cardiomegaly

== ENCOUNTER → 2017-09-22 | Outpatient (CLI) | payer OTHER ==
[~2017-09-22] MED LIST changes: -ACET-1256 PO; +ASPI81TA28 PO; -ATRINS INH; +ATRINSX INH; -AZIT250T PO; -BENZ100C7 PO; +IPRASOL4 INH; +IPRAT-ALBUT INH; +LEVO-366 PO; -OMEG10007 PO; +PRED10TA PO; +SYMIN160 INH; +TRAZ50TA35 PO; -VFND200 PO; +VORI1TAB13 PO
== END | disposition home or self-care (01) ==
LOC: C.LABBFT 15:11
PROVIDERS: ATTEND Internal Medicine Pulmonary Disease
DX: R05 Cough (principal); J45.909 Unspecified asthma, uncomplicated; B44.81 Allergic bronchopulmonary aspergillosis; R93.8 Abnormal findings on diagnostic imaging of other specified body structures; J30.9 Allergic rhinitis, unspecified

== ENCOUNTER → 2017-09-26 | Outpatient (CLI) | payer OTHER ==
[~2017-09-26] MED LIST changes: +AZIT-57 PO; +ETHA1TAB8 PO; +GABA100C13 PO; -GABA1CAP PO; +LDDP5 TD; +TIOT1SPR INH
--- NOTE | 2017-09-26 17:22 | DIAGNOSTIC IMAGING REPORT ---
CHEST 2 VIEWS ROUTINE, R RIBS UNILATERAL MIN 2 VIEWS HISTORY: 87 years-old Female J30.9 Allergic rhinitis with acute right-sided rib pain COMPARISON: Chest radiograph and CTA chest 09/21/2017 TECHNIQUE: PA and lateral views of the chest with 4 views of the right ribs FINDINGS: CHEST: Cardiac silhouette is mildly enlarged. Atherosclerosis of the aorta. Mild pulmonary vascular congestion without overt pulmonary edema. No pneumothorax. Small bilateral pleural effusions are noted with patchy bibasilar opacities, mildly progressed from prior. Multilevel degenerative changes of the spine and shoulders. Post surgical changes of the left humeral head. RIBS: Remote fractures are seen within the posterior lateral aspects of the right fourth and fifth ribs. No acute displaced rib fracture identified. IMPRESSION: 1. Small bilateral pleural effusions with mildly progressive hazy bibasilar opacities suggesting atelectasis. 2. Cardiomegaly without overt pulmonary edema. 3. Remote fractures of the posterolateral right fourth and fifth ribs without acute rib fracture identified. The above report was generated using voice recognition software. It may contain grammatical, syntax or spelling errors. Electronically signed by: Perfecto Sam M.D. 09/26/2017 5:21 PM Dictated Date/Time: 09/26/2017 5:16 PM
== END | disposition home or self-care (01) ==
LOC: C.RAD1850 16:55
PROVIDERS: ATTEND Internal Medicine Pulmonary Disease
DX: J30.9 Allergic rhinitis, unspecified (principal); R07.81 Pleurodynia

== ENCOUNTER 2017-09-27 13:40 | Observation (INO) | payer OTHER ==
[~2017-09-27] VITALS: Ht 172.7 cm; Wt 80.6 kg
[~2017-09-27 13:40] MED LIST changes: -ASPI81TA28 PO; -AZIT-57 PO; -ETHA1TAB8 PO; -IPRASOL4 INH; -LDDP5 TD; -TIOT1SPR INH; -TRAZ50TA35 PO
[2017-09-27] MEDS ORDERED: ASPI81TA28 PO (14:15)
[2017-09-27] MEDS ORDERED: PRED10TA PO (14:15)
[2017-09-27] MEDS ORDERED: TRAZ50TA35 PO (14:15)
[2017-09-27] MEDS ORDERED: IPRASOL4 INH (14:15)
--- NOTE | 2017-09-27 14:59 | EMERGENCY ROOM VISIT NOTE ---
History First contact with patient: 13:59 Chief Complaint: RESPIRATORY PROBLEMS Stated Complaint: RESPIRATORY Nursing Triage Summary: pt sent here by mere office to be admitted, reports congestion bilateral recent dx of ryan, and aspirgillis ? pt has reports tightness between ribs 2 and 3 upon deep inspiration History of Present Illness The patient is a 87 year old female with recent diagnosis of Aspergillus, RYAN on chronic prednisone p/w progressive weakness and recent history of recurrent chest pain, with palpable tenderness in Right upper chest. She is a [place]. Cooney ( [facility] [place] [place] History is per daughter for the most part. She reports 6 days of Chest pain. Chest pain is worse on inspiration, and worse with pressing on right upper chest wall. Patient's daughter also reports progressive weakness and episodes of impaired memory. She was seen by Dr. oConey yesterday. CXR and Rib XR were performed. Findings included pleural effusions with mildly progressive hazy bibasilar opacities suggesting atelectasis.Findings were negative for acute fx. According to patient, Dr. Cooney wanted her to be admitted. Patient denies fevers, chills, presyncope. syncope. orthopnea, paroxysmal nocturnal dyspnea. She is a non-smoker, non on hormonal therapy, no recent travel, no history of VTE. [place] [facility] [place] several weeks of cough, found to have CT chest showing Groundless opacity of Right middle lobe. She had Bronchoscopy performed at the time removing mucus plug. Bronchial washing was positive for Aspergillus. Sputum cx was positive RYAN. She was seen by ED on 09/21. CT showed ground glass appearance in RUL. She was sent home on Levaquin Recent Immune work up showed low IgM, IgA, IgG as of 09/22. Source of History: patient, family Onset: 7 days ago Position: other (chest) Symptom Intensity: mild Quality: sharp Timing: intermittent Modifying Factors (Worsening): other (inspiration) Modifying Factors (Relieving): rest Associated Symptoms: + chest pain, + SOB, No cough Review of Systems Pt denies headache, change in vision, fevers, nausea, vomiting, diarrhea, pain with urination, and melena. Otherwise per HPI Past Medical/Surgical History Medical Problems: (1) section (2) Hysterectomy (3) Shortness of breath (4) Shoulder surgery (5) TIA (transient ischemic attack) Social History Smoking Status: Never Smoker Drug Use: none Marital Status: Occupation Status: retired Current/Historical Medications Scheduled Aspirin (Aspirin Ec), 81 MG PO DAILY Budesonide/Formoterol Fumarate (Symbicort 160/4.5 Inhaler), 2 PUFFS INH BID Ipratropium-Albuterol (Duoneb), 1 TREATMENT INH BID Meloxicam (Mobic), 7.5 MG PO QAM Prednisone (Prednisone), 5 MG PO DAILY Trazodone Hcl (Trazodone), 50 MG PO HS Voriconazole (Voriconazole), 200 MG PO Q12 Physical Exam Vital Signs Date Time Temp Pulse Resp B/P (MAP) Pulse Ox O2 Delivery O2 Flow Rate FiO2 09/27/17 15:11 79 18 129/68 96 Room Air 09/27/17 13:53 86 09/27/17 13:52 99 Room Air 09/27/17 13:47 36.6 93 20 140/79 98 Room Air Physical Exam GENERAL: alert, no distress, non-toxic EYE EXAM: normal conjunctiva, PERRL and EOM's grossly intact OROPHARYNX: no exudate, no erythema, lips, buccal mucosa, and tongue normal and mucous membranes are moist NECK: supple, no adenopathy, non-tender LUNGS: Right sided crackles, rhonchi, no wheezing palpable tenderness, Right upper Chest wall HEART: Systolic murmur, S1 normal and S2 normal ABDOMEN: abdomen soft, non-tender, normo-active bowel sounds, no masses, no rebound or guarding. UPPER EXTREMITIES: upper extremities are grossly normal. LOWER EXTREMITIES: No pitting edema. NEURO EXAM: Normal sensorium, cranial nerves II-XII grossly intact, normal speech Medical Decision & Procedures ER Provider Diagnostic Interpretation: CHEST 2 VIEWS ROUTINE, R RIBS UNILATERAL MIN 2 VIEWS HISTORY: 87 years-old Female J30.9 Allergic rhinitis with acute right-sided rib pain COMPARISON: Chest radiograph and CTA chest 09/21/2017 TECHNIQUE: PA and lateral views of the chest with 4 views of the right ribs FINDINGS: CHEST: Cardiac silhouette is mildly enlarged. Atherosclerosis of the aorta. Mild pulmonary vascular congestion without overt pulmonary edema. No pneumothorax. Small bilateral pleural effusions are noted with patchy bibasilar opacities, mildly progressed from prior. Multilevel degenerative changes of the spine and shoulders. Post surgical changes of the left humeral head. RIBS: Remote fractures are seen within the posterior lateral aspects of the right fourth and fifth ribs. No acute displaced rib fracture identified. IMPRESSION: 1. Small bilateral pleural effusions with mildly progressive hazy bibasilar opacities suggesting atelectasis. 2. Cardiomegaly without overt pulmonary edema. 3. Remote fractures of the posterolateral right fourth and fifth ribs without acute rib fracture identified. The above report was generated using voice recognition software. It may contain grammatical, syntax or spelling errors. CHEST 2 VIEWS ROUTINE, R RIBS UNILATERAL MIN 2 VIEWS HISTORY: 87 years-old Female J30.9 Allergic rhinitis with acute right-sided rib pain COMPARISON: Chest radiograph and CTA chest 09/21/2017 TECHNIQUE: PA and lateral views of the chest with 4 views of the right ribs FINDINGS: CHEST: Cardiac silhouette is mildly enlarged. Atherosclerosis of the aorta. Mild pulmonary vascular congestion without overt pulmonary edema. No pneumothorax. Small bilateral pleural effusions are noted with patchy bibasilar opacities, mildly progressed from prior. Multilevel degenerative changes of the spine and shoulders. Post surgical changes of the left humeral head. RIBS: Remote fractures are seen within the posterior lateral aspects of the right fourth and fifth ribs. No acute displaced rib fracture identified. IMPRESSION: 1. Small bilateral pleural effusions with mildly progressive hazy bibasilar opacities suggesting atelectasis. 2. Cardiomegaly without overt pulmonary edema. 3. Remote fractures of the posterolateral right fourth and fifth ribs without acute rib fracture identified. The above report was generated using voice recognition software. It may contain grammatical, syntax or spelling errors. Laboratory Results 09/27/17 14:45 Red Blood Count 3.52, Mean Corpuscular Volume 92.0, Mean Corpuscular Hemoglobin 32.4, Mean Corpuscular Hemoglobin Concent 35.2, Mean Platelet Volume 10.5, Neutrophils (%) (Auto) 82.4, Lymphocytes (%) (Auto) 11.8, Monocytes (%) (Auto) 3.9, Eosinophils (%) (Auto) 0.5, Basophils (%) (Auto) 0.2, Neutrophils # (Auto) 3.41, Lymphocytes # (Auto) 0.49, Monocytes # (Auto) 0.16, Eosinophils # (Auto) 0.02, Basophils # (Auto) 0.01 09/27/17 14:45 Test 09/27/17 14:39 09/27/17 14:45 Influenza Type A Antigen Neg for Influ A (NEG) Influenza Type B Antigen Neg for Influ B (NEG) White Blood Count 4.14 K/uL (4.8-10.8) Red Blood Count 3.52 M/uL (4.2-5.4) Hemoglobin 11.4 g/dL (12.0-16.0) Hematocrit 32.4 % (37-47) Mean Corpuscular Volume 92.0 fL (80-100) Mean Corpuscular Hemoglobin 32.4 pg (25-34) Mean Corpuscular Hemoglobin Concent 35.2 g/dl (32-36) Platelet Count 159 K/uL (130-400) Mean Platelet Volume 10.5 fL (7.4-10.4) Neutrophils (%) (Auto) 82.4 % Lymphocytes (%) (Auto) 11.8 % Monocytes (%) (Auto) 3.9 % Eosinophils (%) (Auto) 0.5 % Basophils (%) (Auto) 0.2 % Neutrophils # (Auto) 3.41 K/uL (1.4-6.5) Lymphocytes # (Auto) 0.49 K/uL (1.2-3.4) Monocytes # (Auto) 0.16 K/uL (0.11-0.59) Eosinophils # (Auto) 0.02 K/uL (0-0.5) Basophils # (Auto) 0.01 K/uL (0-0.2) RDW Standard Deviation 49.6 fL (36.4-46.3) RDW Coefficient of Variation 14.6 % (11.5-14.5) Immature Granulocyte % (Auto) 1.2 % Immature Granulocyte # (Auto) 0.05 K/uL (0.00-0.02) Anion Gap 8.0 mmol/L (3-11) Est Creatinine Clear Calc Drug Dose 60.1 ml/min Estimated GFR () 89.0 Estimated GFR (Non- 76.8 BUN/Creatinine Ratio 19.9 (10-20) Lactic Acid Level 2.1 mmol/L (0.4-2.0) Calcium Level 8.2 mg/dl (8.5-10.1) Troponin I < 0.015 ng/ml (0-0.045) Laboratory results per my review. Medications Administered Medications (Trade) Dose Ordered Sig/Clemente Route Start Time Stop Time Status Last Admin Dose Admin Oseltamivir Phosphate (Tamiflu Cap) 75 mg NOW STAT PO 09/27/17 16:05 09/27/17 16:06 DC 09/27/17 16:24 75 MG Medical Decision 87 year old female with recent CT findings of Right upper lobe Ground glass opacities (09/21), history of Aspergillus, RYAN s/p bronchoscopy (08/13 )and mucus plug removal , immune work up showing low IgG, IgA, IgM (09/22/17), p/w progressive weakness and recent history of recurrent chest pain arriving afebrile, vital sign stable admitted per request of Pulmonology Differential Diagnosis includes but is not limited to dehydration, anemia, hypoglycemia, hyponatremia, hypernatremia, urinary tract infection, pneumonia, bronchitis, metabolic abnormalities acute coronary syndrome, myocardial infarction, pericarditis, pulmonary embolus, aortic dissection, pneumonia, pneumothorax, musculoskeletal, shingles, esophageal. BMP: Hyponatremia, Na 128 Glucose 174, otherwise unremarkable CBC: WBC ct 4.14, H/H 11.4/32.4 Lactate: 2.1 Troponin: negative Influenza Swab: Negative Given Tamiflu 50 mg Given patient's history of immunodeficiency, recent diagnosis of RYAN per sputum cx , Aspergillus per bronchial washing and presentation of recurrent Chest pain progressive weakness, CBC, BMP were taken today showing leukopenia, mild hyponatremia on arrival. Troponin negative. Chest wall tenderness on exam likely possibly chest wall contusion or musculoskeletal pain as fracture was ruled out. Dyspnea likely secondary to ongoing pneumonia vs. pneumonitis given CXRm CT findings. Per discussion with Dr. Cooney, admit to hospitalist service. Antibiotics were held. Started patient on Tamiflu 50 mg although rapid flu swab was negative. Patient may get a bronchoscopy. Case discussed with [facility] hospitalist Dr. Messina who will evaluate patient for admission. Head Trauma GCS Score: 15 Consults Time Called: [phone] Consulting Physician: Dr. Cooney Returned Call: [phone] Cooney, admit to hospitalist service. Antibiotics held. Start Tamiflu 50 mg. Patient may get a bronchoscopy. Impression Primary Impression: Chest pain Additional Impressions: Dyspnea Generalized weakness Departure Information Dispostion Admitted as an inpatient Referrals Ora Matthews M.D. (PCP) Patient Instructions My [facility] Resident Tracking Resident Involvement: Resident Care Provided Care Provided: Adult ED Problem Qualifiers
[2017-09-27 15:06] LABS: BASO % 0.2 %; BASO ABS # 0.01 K/uL (0-0.2); EOS % 0.5 %; EOS ABS # 0.02 K/uL (0-0.5); HEMATOCRIT 32.4 % (37-47); HEMOGLOBIN 11.4 g/dL (12.0-16.0); IG# 0.05 K/uL (0.00-0.02); LYMPH % 11.8 %; LYMPH ABS # 0.49 K/uL (1.2-3.4); MEAN CORPUSCULAR HEMOGLOBIN 32.4 pg (25-34); MEAN CORPUSCULAR HGB CONC 35.2 g/dl (32-36); MEAN PLATELET VOLUME 10.5 fL (7.4-10.4); MONO % 3.9 %; MONO ABS # 0.16 K/uL (0.11-0.59); NEUT % 82.4 %; NEUT ABS # 3.41 K/uL (1.4-6.5); PLATELET COUNT 159 K/uL (130-400); RED CELL DISTRIBUTION WIDTH CV 14.6 % (11.5-14.5); RED CELL DISTRIBUTION WIDTH SD 49.6 fL (36.4-46.3); WHITE BLOOD COUNT 4.14 K/uL (4.8-10.8)
[2017-09-27 15:07] LABS: INFLUENZA B ANTIGEN Neg for Influ B (NEG)
[2017-09-27 15:20] LABS: BLOOD UREA NITROGEN 14 mg/dl (7-18); CALCIUM 8.2 mg/dl (8.5-10.1); CARBON DIOXIDE 26 mmol/L (21-32); GLUCOSE 174 mg/dl (70-99); POTASSIUM 4.1 mmol/L (3.5-5.1); SODIUM 128 mmol/L (136-145)
[2017-09-27] MEDS ORDERED: OSELTAMIVIR PHOSPHATE 75 MG CAP PO STA ×3 (16:01→16:05)
[2017-09-27] MEDS ORDERED: MAGNESIUM HYDROXIDE SUSP 30 ML UDC PO PRN (16:30)
[2017-09-27] MEDS ORDERED: ONDANSETRON INJ 2 MG/ML 2 ML VIAL IV PRN (16:30)
[2017-09-27] MEDS ORDERED: ALUMINUM/MAGNESIUM/SIMETH (MAALOX MAX) 30 ML UDC PO PRN (16:30)
[2017-09-27] MEDS ORDERED: POLYETHYLENE (MIRALAX) 17 GM PACK PO PRN (16:30)
[2017-09-27] MEDS ORDERED: ACETAMINOPHEN 325 MG TAB PO PRN (16:30)
--- NOTE | 2017-09-27 16:31 | History and Physical ---
History & Physical Date & Time of Service: Sep 27, 2017 at 16:23 Chief Complaint: Respiratory Primary Care Physician: Ora Matthews M.D. History of Present Illness Source: patient 87 y/o F Hx TIA, recent diagnosis of PARAS and pulmonary Aspergillosis. The pt presents with progressive weakness, SOB and pleuritic right upper chest wall pain. She arrives at the hospital at the behest of her floor director. She denies a productive cough and states her SOB is mostly with exertion. She underwent a bronchoscopy two weeks prior and states she has had L sided nosebleeds most mornings since then. She has not had fevers. Initial labs are notable for hyponatremia, mild anemia, mild leukopenia. Lactic acid is mildly elevated as well. Past Medical/Surgical History 1) TIA 2) HPL 3) Pulmonary Aspergillosis 4) MAC Surgical C-SXN Hysterectomy Shoulder surgery Family History Mother due to colon C - colon and gastric CA in multiple family members. Pt does not know her father or related family history. Social History Smoking Status: Never Smoker Drug Use: none Marital Status: Occupational Status: retired Immunizations History of Influenza Vaccine: Yes Influenza Vaccine Date: Jun 18, 2013 History of Tetanus Vaccine?: Unknown Tetanus Immunization Date: Sep 20, 2004 History of Pneumococcal: Yes Pneumococcal Date: Jul 19, 2011 History of Hepatitis B Vaccine: Unknown Multi-Drug Resistant Organisms History of MDRO: No Allergies Coded Allergies: Codeine (Unverified Adverse Reaction, Intermediate, ABDOMINAL PAIN, CONSTIPATION, 09/27/17) Home Medications Scheduled Aspirin (Aspirin Ec), 81 MG PO DAILY Budesonide/Formoterol Fumarate (Symbicort 160/4.5 Inhaler), 2 PUFFS INH BID Ipratropium-Albuterol (Duoneb), 1 TREATMENT INH BID Meloxicam (Mobic), 7.5 MG PO QAM Prednisone (Prednisone), 5 MG PO DAILY Trazodone Hcl (Trazodone), 50 MG PO HS Voriconazole (Voriconazole), 200 MG PO Q12 Review of Systems Constitutional: + weakness, No fever, No chills, No sweats Eyes: No worsening of vision ENT: + nasal symptoms (nosebleeds daily since bronchoscopy), No hearing loss, No unusual epistaxis Respiratory: + shortness of breath, + dyspnea on exertion, + dyspnea at rest, No cough Cardiovascular: + chest pain (chest wall pain) Abdomen: No pain, No nausea, No vomiting Musculoskeletal: No joint pain Genitourinary - Female: No dysuria, No hematuria Neurologic: No memory loss, No paralysis, No weakness Psychiatric: No depression symptoms Endocrine: + fatigue Hematologic / Lymphatic: + abnormal bleeding/bruising (nosebleeds as above) Integumentary: No rash Allergic / Immunologic: No environmental allergies Physical Exam Vital Signs Date Time Temp Pulse Resp B/P (MAP) Pulse Ox O2 Delivery O2 Flow Rate FiO2 09/27/17 15:11 79 18 129/68 96 Room Air 09/27/17 13:53 86 09/27/17 13:52 99 Room Air 09/27/17 13:47 36.6 93 20 140/79 98 Room Air General Appearance: WD/WN, no apparent distress Head: normocephalic Eyes: normal inspection ENT: normal ENT inspection, pharynx normal Neck: supple, no JVD Respiratory/Chest: chest non-tender, lungs clear, normal breath sounds, + pertinent finding (reduced air entry at lower lung bases without audible crackles or wheezing) Cardiovascular: regular rate, rhythm, no edema, no gallop Abdomen/GI: normal bowel sounds, non tender, soft Back: normal inspection, no CVA tenderness Extremities/Musculoskelatal: normal inspection, no calf tenderness, normal capillary refill, + pedal edema (1+ BL) 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, no motor/sensory deficits, alert Skin: normal color, warm/dry, no rash Diagnostics Laboratory Results Results Past 24 Hours Test 09/27/17 14:39 09/27/17 14:45 Range/Units Influenza Type A Antigen Neg for Influ A NEG Influenza Type B Antigen Neg for Influ B NEG White Blood Count 4.14 4.8-10.8 K/uL Red Blood Count 3.52 4.2-5.4 M/uL Hemoglobin 11.4 12.0-16.0 g/dL Hematocrit 32.4 37-47 % Mean Corpuscular Volume 92.0 80-100 fL Mean Corpuscular Hemoglobin 32.4 25-34 pg Mean Corpuscular Hemoglobin Concent 35.2 32-36 g/dl Platelet Count 159 130-400 K/uL Mean Platelet Volume 10.5 7.4-10.4 fL Neutrophils (%) (Auto) 82.4 % Lymphocytes (%) (Auto) 11.8 % Monocytes (%) (Auto) 3.9 % Eosinophils (%) (Auto) 0.5 % Basophils (%) (Auto) 0.2 % Neutrophils # (Auto) 3.41 1.4-6.5 K/uL Lymphocytes # (Auto) 0.49 1.2-3.4 K/uL Monocytes # (Auto) 0.16 0.11-0.59 K/uL Eosinophils # (Auto) 0.02 0-0.5 K/uL Basophils # (Auto) 0.01 0-0.2 K/uL RDW Standard Deviation 49.6 36.4-46.3 fL RDW Coefficient of Variation 14.6 11.5-14.5 % Immature Granulocyte % (Auto) 1.2 % Immature Granulocyte # (Auto) 0.05 0.00-0.02 K/uL Sodium Level 128 136-145 mmol/L Potassium Level 4.1 3.5-5.1 mmol/L Chloride Level 95 98-107 mmol/L Carbon Dioxide Level 26 21-32 mmol/L Anion Gap 8.0 3-11 mmol/L Blood Urea Nitrogen 14 7-18 mg/dl Creatinine 0.70 0.60-1.20 mg/dl Est Creatinine Clear Calc Drug Dose 60.1 ml/min Estimated GFR () 89.0 Estimated GFR (Non- 76.8 BUN/Creatinine Ratio 19.9 10-20 Random Glucose 174 70-99 mg/dl Lactic Acid Level 2.1 0.4-2.0 mmol/L Calcium Level 8.2 8.5-10.1 mg/dl Troponin I < 0.015 0-0.045 ng/ml Diagnostic Radiology CXR: 1. Small bilateral pleural effusions with mildly progressive hazy bibasilar opacities suggesting atelectasis. 2. Cardiomegaly without overt pulmonary edema. 3. Remote fractures of the posterolateral right fourth and fifth ribs. CTA 09/21 1. There is no evidence of pulmonary embolus in the main, lobar, or segmental pulmonary arteries. 2. Cardiomegaly. 3. Trace pleural effusions are identified. 4. There is no lobar consolidation. 5. A small focus of groundglass change in the right upper lobe is new from 08/10 and almost certainly inflammatory. Previously identified foci of groundglass change seen on 08/10/2017 have resolved. 6. Additional findings as above. Impression Assessment and Plan 87 y/o F Hx TIA, recent diagnosis of PARAS and pulmonary Aspergillosis. The pt presents with progressive weakness, SOB and pleuritic right upper chest wall pain. She arrives at the hospital at the behest of her floor director. She denies a productive cough and states her SOB is mostly with exertion. She underwent a bronchoscopy two weeks prior and states she has had L sided nosebleeds most mornings since then. She has not had fevers. Initial labs are notable for hyponatremia, mild anemia, mild leukopenia. Lactic acid is mildly elevated as well. 1) SOB and pleuritic CP. There may be progress of lung disease although I do not appreciate any respiratory discomfort at rest and she does not appear acutely infected. She will be evaluated by her floor director and may need an additional bronchoscopy. The etiology of her persistent pleuritic pain is unclear but may be related to her recent infection which affected her R upper lobe. We will treat symptomatically. We will cont Voriconazole as prescribed. The pt has been tapering steroids for 2 weeks and is down to 5mg daily - as she feels exceptionally weak and has hyponatremia, we will check a cortisol level. 2) Weakness - clinical dehydration and hyponatremia in addition to her infection may be responsible. Reg her hyponatremia. She has been drinking water with poor PO intake per daughter. Hyponatremia is also a listed side effect of Voriconazole. We will provide IVF and trend her BMP. We will check a TSH and a cortisol as above. If she does not improve with IVF, would obtain urine Na/OSM. 3) The pt is hyperglycemic which is likely due to steroids. Would evaluate further if numbers do not normalize off of steroids. May be contributing slightly to her hyponatremia. 4) Epistaxis - has been recurrent since her bronchoscopy - she exhibits mild anemia - if this recurs we may need an ENT consult for cauterization. 5) Hx of TIA - cont ASA - she is statin intolerant. Full code - SCDs pending AM eval Total time for this admit including review of labs, meds, imaging - discussion with pt and ER attending - 39 min Level of Care Med/Surg Resuscitation Status FULL RESUSCITATION VTE Prophylaxis VTE Risk Assessment Done? Y/N: Yes Risk Level: Moderate Given or contraindicated: SCD's
[2017-09-27 16:40] VITALS: BP 166/91; PULSE 73; TEMP 36.6; O2SAT 98; Ht 172.7 cm; Wt 80.6 kg
--- NOTE | 2017-09-27 16:46 | EMERGENCY ROOM VISIT NOTE ---
ED Visit Note First contact with patient: 13:59 The patient was seen and examined with resident Dr. Moore. I agree with the history and physical. Please see the note for disposition and details. Vital signs stable. EKG showed sinus rhythm with a rate of 82. MI interval increase it to 222. QRS and QTc intervals within normal limits. Chest x-ray from yesterday did not show any acute infiltrative process. Labs within normal limits. Discussed the patient's case with pulmonology Dr. Cooney who requested that the patient be admitted to the hospitalist service. He stated to start the patient empirically on Tamiflu given the high false-negative rate of the rapid influenza's test. He also stated to hold off on any antibiotics. He stated to admit the patient to the hospitalist service, have cardiology evaluate the patient, he will evaluate the patient tomorrow and decide if he will do a bronchoscopy.
[2017-09-27] MEDS: SODIUM CHLORIDE 0.9% 1000ML 1,000 ML IV SCH (17:29)
[2017-09-27] MEDS: BUDESONIDE/FORMOTEROL FUMARATE 160/4.5 60 PUFFS/INHALER INH SCH (19:49)
[2017-09-27] MEDS: TRAZODONE HCL 50 MG TAB PO SCH (19:49)
[2017-09-27] MEDS: VORICONAZOLE 200 MG TAB PO SCH (19:50)
[2017-09-27 20:07] VITALS: PULSE 92; O2SAT 98
[2017-09-27 22:28] VITALS: BP 131/82; PULSE 75; TEMP 36.6; O2SAT 94
[2017-09-28] VITALS (7 sets, daily range): BP systolic 123–141; BP diastolic 71–82; PULSE 65–79; TEMP 36.5–36.8; O2SAT 94–99
[2017-09-28 02:28] LABS: OSMOLALITY,URINE 158 mOms/kg (500-800)
[2017-09-28 02:32] LABS: SODIUM RANDOM URINE 30 mEq/L
[2017-09-28] MEDS: SODIUM CHLORIDE 0.9% 1000ML 1,000 ML IV SCH (05:39)
[2017-09-28] MEDS: IV FLUIDS COMPLETED PRN ×2 (05:39→19:37)
[2017-09-28] MEDS: ALBUT/IPRATROP 3MG/0.5MG NEB 3 ML VIAL INH SCH ×3 (07:05→19:21)
[2017-09-28 08:53] LABS: BASO % 0.2 %; BASO ABS # 0.01 K/uL (0-0.2); EOS % 1.2 %; EOS ABS # 0.05 K/uL (0-0.5); HEMATOCRIT 33.4 % (37-47); HEMOGLOBIN 11.6 g/dL (12.0-16.0); IG# 0.06 K/uL (0.00-0.02); LYMPH % 17.3 %; LYMPH ABS # 0.72 K/uL (1.2-3.4); MEAN CORPUSCULAR HEMOGLOBIN 32.3 pg (25-34); MEAN CORPUSCULAR HGB CONC 34.7 g/dl (32-36); MEAN PLATELET VOLUME 10.6 fL (7.4-10.4); MONO % 7.2 %; NEUT % 72.7 %; NEUT ABS # 3.01 K/uL (1.4-6.5); PLATELET COUNT 137 K/uL (130-400); RED CELL DISTRIBUTION WIDTH CV 14.8 % (11.5-14.5); RED CELL DISTRIBUTION WIDTH SD 50.7 fL (36.4-46.3); WHITE BLOOD COUNT 4.15 K/uL (4.8-10.8)
[2017-09-28] MEDS ORDERED: MELOXICAM 7.5 MG TAB PO SCH (09:00)
[2017-09-28] MEDS: LIDODERM (LIDOCAINE) PATCH 5% TD SCH (09:02)
[2017-09-28] MEDS: BUDESONIDE/FORMOTEROL FUMARATE 160/4.5 60 PUFFS/INHALER INH SCH ×2 (09:06→21:27)
[2017-09-28 09:21] LABS: CALCIUM 7.9 mg/dl (8.5-10.1); CREATININE 0.64 mg/dl (0.60-1.20); POTASSIUM 3.5 mmol/L (3.5-5.1)
--- NOTE | 2017-09-28 09:42 | Medical Student: [facility] ---
Med Student History & Physical Date & Time of Service: Sep 28, 2017 at 09:34 Chief Complaint: Generalized Weakness, Shortness Of Breath Primary Care Physician: Ora Matthews M.D. History of Present Illness Source: patient Shweta is an 87-year-old female with a history of PARAS and pulmonary Aspergillosis who presented to the ED 09/27 with right-sided pleuritic chest pain and weakness. She states that this has been going on for about a week, and when she saw her starch dumper (Dr. Cooney) yesterday, he sent her to the ED. The pain is worse with inspiration but is not present when she is not taking a breath. She decribes it as an ache that is 6/10. States that she has a chronic cough and is somewhat short of breath with exertion but attributes that to being less active than usual because of the weather. She has a complicated pulmonary history that includes recent diagnoses of PARAS and pulmonary Aspergillosis which were found on washings done by bronchoscopy when she was admitted to [facility] 08/11-08/15. She is currently being treated with Voriconazole and was started on [id number] azithromycin and ethambutol when the PARAS culture resulted. She had a second bronchoscopy two weeks ago to remove a mucus plug. Patient denies fever, chills, headache, nausea, vomiting, syncope, orthopnea, leg pain. Influenza testing was negative. CXR showed mild effusion and mild atelectasis that was unchanged form previous film. CTA showed no PE and no consolidation but did show a ground-glass opacity in the right upper lobe consistent with her previous PARAS/aspergillosis diagnosis. Past Medical/Surgical History Medical Problems: (1) Abrasion Status: Acute (2) Chest pain Status: Acute (3) Contusion Status: Acute (4) Contusion of multiple sites Status: Acute (5) Dyspnea Status: Acute (6) Failure of outpatient treatment Status: Acute (7) Generalized weakness Status: Acute (8) Head injury Status: Acute (9) Lung collapse Status: Acute (10) Nasal bone fx-closed Status: Acute (11) Pneumonia Status: Acute (12) Pneumonitis Status: Acute (13) Right-sided chest pain Status: Acute (14) Skin tear Status: Acute Family History Other: cancer (colon, gastric) Social History Smoking Status: Never Smoker Drug Use: none Marital Status: Occupational Status: retired Immunizations History of Influenza Vaccine: Yes Influenza Vaccine Date: Jun 18, 2013 History of Tetanus Vaccine?: Unknown Tetanus Immunization Date: Sep 20, 2004 History of Pneumococcal: Yes Pneumococcal Date: Jul 19, 2011 History of Hepatitis B Vaccine: Unknown Allergies Coded Allergies: Codeine (Unverified Adverse Reaction, Intermediate, ABDOMINAL PAIN, CONSTIPATION, 09/27/17) Medications Aspirin (Aspirin Ec), 81 MG PO DAILY Budesonide/Formoterol Fumarate (Symbicort 160/4.5 Inhaler), 2 PUFFS INH BID Ipratropium-Albuterol (Duoneb), 1 TREATMENT INH BID Meloxicam (Mobic), 7.5 MG PO QAM Prednisone (Prednisone), 5 MG PO DAILY Trazodone Hcl (Trazodone), 50 MG PO HS Voriconazole (Voriconazole), 200 MG PO Q12 Review of Systems Constitutional: No fever, No chills, No sweats Eyes: No worsening of vision ENT: + unusual epistaxis (has had nose bleed every morning for two weeks following bronch) Respiratory: + cough (ongoing), + shortness of breath, + dyspnea on exertion, No sputum, No wheezing, No dyspnea at rest Cardiovascular: + chest pain (pleuritic in nature; right upper chest), No orthopnea Abdomen: No pain, No nausea, No vomiting Musculoskeletal: No joint pain, No calf pain Genitourinary - Female: No dysuria, No urinary frequency Neurologic: No weakness, No numbness/tingling Hematologic / Lymphatic: No abnormal bleeding/bruising Integumentary: No rash, No itch Physical Exam Vital Signs (24 Hours) Date Time Temp Pulse Resp B/P (MAP) Pulse Ox O2 Delivery O2 Flow Rate FiO2 09/28/17 08:00 Room Air 09/28/17 07:27 36.6 67 18 141/82 (101) 99 Room Air 09/28/17 07:05 65 16 95 Room Air 09/28/17 01:47 76 16 94 Room Air 09/27/17 23:45 Room Air 09/27/17 22:28 36.6 75 20 131/82 (98) 94 Room Air 09/27/17 20:07 92 18 98 Room Air 09/27/17 16:59 81 18 145/103 98 2/7/18 16:40 36.6 73 20 166/91 98 09/27/17 15:11 79 18 129/68 96 Room Air 09/27/17 13:53 86 09/27/17 13:52 99 Room Air 09/27/17 13:47 36.6 93 20 140/79 98 Room Air General Appearance: WD/WN, no apparent distress Head: normocephalic, atraumatic Eyes: normal inspection, PERRL ENT: normal ENT inspection Neck: supple, no adenopathy Respiratory/Chest: no respiratory distress, + crackles (right lung), + rhonchi (right lung), + pertinent finding (TTP over right upper chest lateral to sternal border) Cardiovascular: regular rate, rhythm, no edema, no JVD Abdomen/GI: normal bowel sounds, non tender, soft Back: normal inspection, no CVA tenderness Extremities/Musculoskelatal: normal inspection, no calf tenderness, normal range of motion Neurologic/Psych: alert, normal mood/affect, oriented x 3 Skin: normal color, warm/dry, no rash Lymphatic: no adenopathy Diagnostics Laboratory Results Results Past 24 Hours Test 09/27/17 14:39 09/27/17 14:45 09/27/17 18:09 09/28/17 02:05 Range/Units Influenza Type A Antigen Neg for Influ A NEG Influenza Type B Antigen Neg for Influ B NEG White Blood Count 4.14 4.8-10.8 K/uL Red Blood Count 3.52 4.2-5.4 M/uL Hemoglobin 11.4 12.0-16.0 g/dL Hematocrit 32.4 37-47 % Mean Corpuscular Volume 92.0 80-100 fL Mean Corpuscular Hemoglobin 32.4 25-34 pg Mean Corpuscular Hemoglobin Concent 35.2 32-36 g/dl Platelet Count 159 130-400 K/uL Mean Platelet Volume 10.5 7.4-10.4 fL Neutrophils (%) (Auto) 82.4 % Lymphocytes (%) (Auto) 11.8 % Monocytes (%) (Auto) 3.9 % Eosinophils (%) (Auto) 0.5 % Basophils (%) (Auto) 0.2 % Neutrophils # (Auto) 3.41 1.4-6.5 K/uL Lymphocytes # (Auto) 0.49 1.2-3.4 K/uL Monocytes # (Auto) 0.16 0.11-0.59 K/uL Eosinophils # (Auto) 0.02 0-0.5 K/uL Basophils # (Auto) 0.01 0-0.2 K/uL RDW Standard Deviation 49.6 36.4-46.3 fL RDW Coefficient of Variation 14.6 11.5-14.5 % Immature Granulocyte % (Auto) 1.2 % Immature Granulocyte # (Auto) 0.05 0.00-0.02 K/uL Sodium Level 128 136-145 mmol/L Potassium Level 4.1 3.5-5.1 mmol/L Chloride Level 95 98-107 mmol/L Carbon Dioxide Level 26 21-32 mmol/L Anion Gap 8.0 3-11 mmol/L Blood Urea Nitrogen 14 7-18 mg/dl Creatinine 0.70 0.60-1.20 mg/dl Est Creatinine Clear Calc Drug Dose 60.1 ml/min Estimated GFR () 89.0 Estimated GFR (Non- 76.8 BUN/Creatinine Ratio 19.9 10-20 Random Glucose 174 70-99 mg/dl Lactic Acid Level 2.1 0.4-2.0 mmol/L Calcium Level 8.2 8.5-10.1 mg/dl Troponin I < 0.015 0-0.045 ng/ml Thyroid Stimulating Hormone (TSH) 1.750 0.300-4.500 uIu/ml Random Cortisol 5.55 mcg/dl Urine Osmolality 158 500-800 mOms/kg Urine Random Sodium 30 mEq/L Test 09/28/17 08:46 Range/Units White Blood Count 4.15 4.8-10.8 K/uL Red Blood Count 3.59 4.2-5.4 M/uL Hemoglobin 11.6 12.0-16.0 g/dL Hematocrit 33.4 37-47 % Mean Corpuscular Volume 93.0 80-100 fL Mean Corpuscular Hemoglobin 32.3 25-34 pg Mean Corpuscular Hemoglobin Concent 34.7 32-36 g/dl Platelet Count 137 130-400 K/uL Mean Platelet Volume 10.6 7.4-10.4 fL Neutrophils (%) (Auto) 72.7 % Lymphocytes (%) (Auto) 17.3 % Monocytes (%) (Auto) 7.2 % Eosinophils (%) (Auto) 1.2 % Basophils (%) (Auto) 0.2 % Neutrophils # (Auto) 3.01 1.4-6.5 K/uL Lymphocytes # (Auto) 0.72 1.2-3.4 K/uL Monocytes # (Auto) 0.30 0.11-0.59 K/uL Eosinophils # (Auto) 0.05 0-0.5 K/uL Basophils # (Auto) 0.01 0-0.2 K/uL RDW Standard Deviation 50.7 36.4-46.3 fL RDW Coefficient of Variation 14.8 11.5-14.5 % Immature Granulocyte % (Auto) 1.4 % Immature Granulocyte # (Auto) 0.06 0.00-0.02 K/uL Sodium Level 137 136-145 mmol/L Potassium Level 3.5 3.5-5.1 mmol/L Chloride Level 105 98-107 mmol/L Carbon Dioxide Level 25 21-32 mmol/L Anion Gap 7.0 3-11 mmol/L Blood Urea Nitrogen 10 7-18 mg/dl Creatinine 0.64 0.60-1.20 mg/dl Est Creatinine Clear Calc Drug Dose 66.4 ml/min Estimated GFR () 91.7 Estimated GFR (Non- 79.1 BUN/Creatinine Ratio 15.3 10-20 Random Glucose 102 70-99 mg/dl Lactic Acid Level 1.8 0.4-2.0 mmol/L Calcium Level 7.9 8.5-10.1 mg/dl Impression Assessment and Plan Assessment: This is [id number] female with a history of PARAS/pulmonary Aspergillosis and TIA who presented to the ED 09/27 with right sided pleuritic chest pain. DDx includes inflammation 2/2 current infection, pleural adhesion, costochondritis/ other MSK, rib fracture. Plan: Primary diagnosis: pleuritic chest pain due to inflammation 2/2 PARAS, Aspergillosis infection - Consult pulmonology - Dr. Cooney sees her outpatient - Continue lidocaine patch, PRN toradol in hospital - will D/C home with script for Voltaren gel for pain relief along with short course of tramadol or meloxicam - Continue Voriconazole, ethambutol, azithromycin as prescribed. - Continue home inhaler regimen - No need for bronch at this time Epistaxis - Has been recurrent since her bronchoscopy two weeks ago - Mild anemia - can consult ENT for cauterization if this continues Hx of TIA - continue ASA - she is statin intolerant. Advanced Directives Existing Living Will: Yes Existing Power of Donor Specialist: Yes
[2017-09-28] MEDS: ASPIRIN 81 MG ECTAB PO SCH (10:03)
[2017-09-28] MEDS: VORICONAZOLE 200 MG TAB PO SCH ×2 (10:03→21:28)
[2017-09-28] MEDS ORDERED: KETOROLAC TROMETHAMINE 30 MG/ML VIAL ONE (10:21)
[2017-09-28] MEDS ORDERED: KETOROLAC TROMETHAMINE 15 MG/ML VIAL IV. PRN (10:30)
[2017-09-28] MEDS ORDERED: KETOROLAC TROMETHAMINE 15 MG/ML VIAL IV. ONE (10:30)
--- NOTE | 2017-09-28 10:32 | Hospitalist Progress Note ---
Hospitalist Progress Note Date of Service Sep 28, 2017. (Betty Moon ., ANANDA) Subjective Pt evaluation today including: conversation w/ patient, physical exam, chart review, lab review, review of inpatient medication list Voiding: no voiding problems Ms. Nevarez chest pain is better today with lidocaine patch, 3/10 down from 8/ 10 at admission. She is trying not to cough because of the pain in her chest when she does. She is not sob. She is NPO until pulmonology sees her and decides whether to bronch or not ROS Constitutional: no chills, aches, sweats or fever Respiratory: see HPI Cardiac: no chest pain, palpitations, edema, orthopnea or lightheadedness GI: no abdominal pain, nausea, vomiting, diarrhea or constipation : no dysuria or hesitancy Extremities: no joint pain or weakness Skin: no rash All other systems reviewed and negative (Betty Moon CRNP) Medications Medications (Trade) Dose Ordered Sig/Clemente Route Start Time Stop Time Status Last Admin Dose Admin Oseltamivir Phosphate (Tamiflu Cap) 75 mg NOW STAT PO 09/27/17 16:05 09/27/17 16:06 DC 09/27/17 16:24 75 MG Budesonide/ Formoterol Fumarate (Symbicort 160/ 4.5 Inh) 2 puffs BID INH 09/27/17 21:00 10/27/17 20:59 09/28/17 09:06 2 PUFFS Albuterol/ Ipratropium (Duoneb) 3 ml Q6R INH 09/27/17 21:00 10/27/17 20:59 09/28/17 07:05 3 ML Trazodone HCl (Desyrel Tab) 50 mg HS PO 09/27/17 21:00 10/27/17 20:59 09/27/17 19:49 50 MG Voriconazole (Vfend Tab) 200 mg Q12 PO 09/27/17 21:00 10/04/17 20:59 09/27/17 19:50 200 MG Sodium Chloride 1,000 ml @ 80 mls/hr [id number] IV 09/27/17 16:15 09/28/17 17:14 09/28/17 05:39 80 MLS/HR Miscellaneous (Iv Fluids Completed) 1 ea PRN PRN N/A 09/27/17 16:45 09/27/18 16:44 09/28/17 05:39 1 EA Lidocaine (Lidoderm Patch 5%) 1 patch QAM TD 09/28/17 09:00 10/28/17 08:59 09/28/17 09:02 1 PATCH (Betty Moon CRNP) Objective Vital Signs Date Time Temp Pulse Resp B/P (MAP) Pulse Ox O2 Delivery O2 Flow Rate FiO2 09/28/17 08:00 Room Air 09/28/17 07:27 36.6 67 18 141/82 (101) 99 Room Air 09/28/17 07:05 65 16 95 Room Air 09/28/17 01:47 76 16 94 Room Air 09/27/17 23:45 Room Air 09/27/17 22:28 36.6 75 20 131/82 (98) 94 Room Air 09/27/17 20:07 92 18 98 Room Air 09/27/17 16:59 81 18 145/103 98 09/27/17 16:40 36.6 73 20 166/91 98 09/27/17 15:11 79 18 129/68 96 Room Air 09/27/17 13:53 86 09/27/17 13:52 99 Room Air 09/27/17 13:47 36.6 93 20 140/79 98 Room Air (Betty Moon CRNP) Physical Exam Notes: General: no distress Eyes: normal inspection, PERLL Respiratory: chest non tender, clear to auscultation, normal breath sounds, no respiratory distress, no accessory muscle use Cardiac: regular rate and rhythm, no rub or gallop, 2/6 systolic murmur RUSB, trace edema lower extremities GI/: active bowel sounds, no abd pain or tenderness, soft, non distended Extremities: normal range of motion, normal strength, non tender Neuro/Psych: alert and oriented x 3, normal mood and affect Skin: normal color, dry (Betty Moon CRNP) Laboratory Results Last 24 Hours Test 09/27/17 14:39 09/27/17 14:45 09/27/17 18:09 09/28/17 02:05 Influenza Type A Antigen Neg for Influ A Influenza Type B Antigen Neg for Influ B White Blood Count 4.14 K/uL Red Blood Count 3.52 M/uL Hemoglobin 11.4 g/dL Hematocrit 32.4 % Mean Corpuscular Volume 92.0 fL Mean Corpuscular Hemoglobin 32.4 pg Mean Corpuscular Hemoglobin Concent 35.2 g/dl Platelet Count 159 K/uL Mean Platelet Volume 10.5 fL Neutrophils (%) (Auto) 82.4 % Lymphocytes (%) (Auto) 11.8 % Monocytes (%) (Auto) 3.9 % Eosinophils (%) (Auto) 0.5 % Basophils (%) (Auto) 0.2 % Neutrophils # (Auto) 3.41 K/uL Lymphocytes # (Auto) 0.49 K/uL Monocytes # (Auto) 0.16 K/uL Eosinophils # (Auto) 0.02 K/uL Basophils # (Auto) 0.01 K/uL RDW Standard Deviation 49.6 fL RDW Coefficient of Variation 14.6 % Immature Granulocyte % (Auto) 1.2 % Immature Granulocyte # (Auto) 0.05 K/uL Sodium Level 128 mmol/L Potassium Level 4.1 mmol/L Chloride Level 95 mmol/L Carbon Dioxide Level 26 mmol/L Anion Gap 8.0 mmol/L Blood Urea Nitrogen 14 mg/dl Creatinine 0.70 mg/dl Est Creatinine Clear Calc Drug Dose 60.1 ml/min Estimated GFR () 89.0 Estimated GFR (Non- 76.8 BUN/Creatinine Ratio 19.9 Random Glucose 174 mg/dl Lactic Acid Level 2.1 mmol/L Calcium Level 8.2 mg/dl Troponin I < 0.015 ng/ml Thyroid Stimulating Hormone (TSH) 1.750 uIu/ml Random Cortisol 5.55 mcg/dl Urine Osmolality 158 mOms/kg Urine Random Sodium 30 mEq/L Test 09/28/17 08:46 White Blood Count 4.15 K/uL Red Blood Count 3.59 M/uL Hemoglobin 11.6 g/dL Hematocrit 33.4 % Mean Corpuscular Volume 93.0 fL Mean Corpuscular Hemoglobin 32.3 pg Mean Corpuscular Hemoglobin Concent 34.7 g/dl Platelet Count 137 K/uL Mean Platelet Volume 10.6 fL Neutrophils (%) (Auto) 72.7 % Lymphocytes (%) (Auto) 17.3 % Monocytes (%) (Auto) 7.2 % Eosinophils (%) (Auto) 1.2 % Basophils (%) (Auto) 0.2 % Neutrophils # (Auto) 3.01 K/uL Lymphocytes # (Auto) 0.72 K/uL Monocytes # (Auto) 0.30 K/uL Eosinophils # (Auto) 0.05 K/uL Basophils # (Auto) 0.01 K/uL RDW Standard Deviation 50.7 fL RDW Coefficient of Variation 14.8 % Immature Granulocyte % (Auto) 1.4 % Immature Granulocyte # (Auto) 0.06 K/uL Sodium Level 137 mmol/L Potassium Level 3.5 mmol/L Chloride Level 105 mmol/L Carbon Dioxide Level 25 mmol/L Anion Gap 7.0 mmol/L Blood Urea Nitrogen 10 mg/dl Creatinine 0.64 mg/dl Est Creatinine Clear Calc Drug Dose 66.4 ml/min Estimated GFR () 91.7 Estimated GFR (Non- 79.1 BUN/Creatinine Ratio 15.3 Random Glucose 102 mg/dl Lactic Acid Level 1.8 mmol/L Calcium Level 7.9 mg/dl (Betty Moon CRNP) Assessment and Plan 87 y/o F Hx TIA, recent diagnosis of PARAS and pulmonary Aspergillosis here for pleuritic chest pain and sob SOB and pleuritic CP, hx PARAS, Aspergillosis - consult pulmonology and await recommendations - Incentive spirometry to encourage deep breaths despite pleurisy - Continue lidocaine patch, prn toradol - restart home meloxicam and dc toradol when taking po - cont Voriconazole, ethambutol, azithromycin as prescribed. - continue Symbicort - Hyponatremia - resolved - Na 137 today - Cortisol 5.5 last evening, TSH 1.75 - continue NSS @ 80, patient currently NPO until seen by pulm Epistaxis - has been recurrent since her bronchoscopy - she exhibits mild anemia - if this recurs we may need an ENT consult for cauterization. Hx of TIA - cont ASA - she is statin intolerant. (Betty Moon CRNP) i personally examined pt and verified all cisse points tera MALAVE R upper chest pain hurts more to breathe vitals noted nad breathing unlabored no pallor or icterus. msk/ost - R upper ribs ~3-4 tender (no crepitis) decreased ROM stuck more towards exhalation - muscle energy utilizing pec minor, balanced ligamentous tension - some improvement in tissue, pt tolerated well chest pain - likely initial mechanism is pleuritic from inflammation from PARAS and fungal infection - but this has also led to intercostal pain -toradol for now - would hesitate [facility] NSAIDS due to ADR risk w age -lidocaine patch --> diclofenac gel by time of discharge -taught self stretches -OMT somatic dysfunction rib region -OMT as above -taught pt self stretches -if seems to be helping, would consider referral to Augusto Reis DO [facility] for ongoing OMT otherwise as above hopefully home 09/29 as long as pain control improving (Mayur Trimble D.O.)
[2017-09-28] MEDS ORDERED: TRAMADOL HCL 50 MG TAB PO PRN (11:00)
[2017-09-28] MEDS ORDERED: ETHAMBUTOL HCL 400 MG TAB PO SCH (13:30)
--- NOTE | 2017-09-28 15:39 | Pulmonary Consultation ---
History General Date of Service: Sep 28, 2017. Chief Complaint: Chest pain Stated Complaint: Generalized Weakness, Shortness Of Breath HPI The patient is a 87 year old female who presents to [facility] with complaints of Generalized Weakness, Shortness Of Breath. The patient 's primary care provider is Ora Matthews M.D.. Mrs. Reynolds follows with Dr. Cooney and was most recently seen for bronchoscopy for shortness of breath. 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 Patient was started on voriconazole and is currently receiving that at home per instructions. She was in to see Dr. Cooney on 09/26/2017 and he suggested treating PARAS with azithromycin 500 mg p.o. 1 tablet twice weekly as well as ethambutol 400 mg 2 tablets p.o. twice weekly. The patient was also found to have hypogammaglobulinemia and was to start 4 g every 2 weeks without pretreatment. The patient states that she has not had any shortness of breath, hemoptysis, productive sputum but has had persistent right-sided chest pain. The pain is reproducible just below the right subclavian. She has no migration of pain. She has no difficulty with shortness of breath at rest but does have pain when she takes a deep breath. She denies fever, sweats, rigors. Chest x-ray and rib x-rays completed 09/26/2017 revealed no acute fractures but there do appear to be remote fractures within the posterior lateral aspects of the right fourth and fifth ribs. There is no evidence of displaced rib fracture. The patient reports that she was given a lidocaine patch just below her right subclavian region and this has helped significantly with pain. Review of Systems A total of 12 systems was reviewed and is negative other than as listed above in the HPI All Other Symptoms All Other Systems: Reviewed and Negative Past Medical History Past Medical History: Medical Problems: (1) section (2) Hysterectomy (3) Shortness of breath (4) Shoulder surgery (5) TIA (transient ischemic attack) Past Surgical History: Past surgical history: Bronchoscopy 08/13/2017 - Dr. Vaughn Family History Not contributable to current admission Social History Hx Tobacco Use In Past Year?: No Smoking Status: Never Smoker Alcohol: never Drug Use: none Marital status: Housing status: lives alone Occupational Status: retired Immunizations History of Influenza Vaccine: Yes Influenza Vaccine Date: Jun 18, 2013 History of Tetanus Vaccine?: Unknown Tetanus Immunization Date: Sep 20, 2004 History of Pneumococcal: Yes Pneumococcal Date: Jul 19, 2011 History of Hepatitis B Vaccine: Unknown History of MDRO History of MDRO: No Allergies Coded Allergies: Codeine (Unverified Adverse Reaction, Intermediate, ABDOMINAL PAIN, CONSTIPATION, 09/27/17) Current Medications Reported Home Medications Medications Dose Route/Sig Max Daily Dose Days Date Category Dose Instructions Aspirin Ec (Aspirin) 81 Mg Tab 81 Mg PO DAILY 09/27/17 Reported Prednisone 10 Mg Tab 5 Mg PO DAILY 09/27/17 Reported TAPER DOSE. LAST DOSE IS 09/28/17. Trazodone (Trazodone HCl) 50 Mg Tab 50 Mg PO HS 09/27/17 Reported Duoneb (Ipratropium-Albuterol) 3 Ml Nebu 1 Treatment INH BID 09/27/17 Reported Voriconazole 200 Mg Tab 200 Mg PO Q12 09/21/17 Reported Symbicort 160/4.5 Inhaler (Budesonide/Formoterol Fumarate) 120 Puffs/ Aero 2 Puffs INH BID 09/21/17 Reported Mobic (Meloxicam) 7.5 Mg Tab 7.5 Mg PO QAM 08/07/17 Reported Physical Physical Exam Vital Signs: Date Time Temp Pulse Resp B/P (MAP) Pulse Ox O2 Delivery O2 Flow Rate FiO2 09/28/17 14:11 68 16 98 Room Air 09/28/17 08:00 Room Air 09/28/17 07:27 36.6 67 18 141/82 (101) 99 Room Air 09/28/17 07:05 65 16 95 Room Air 09/28/17 01:47 76 16 94 Room Air 09/27/17 23:45 Room Air 09/27/17 22:28 36.6 75 20 131/82 (98) 94 Room Air 09/27/17 20:07 92 18 98 Room Air 09/27/17 16:59 81 18 145/103 98 09/27/17 16:40 36.6 73 20 166/91 98 09/27/17 15:11 79 18 129/68 96 Room Air Weight in Kilograms: 80.6 GENERAL : No acute distress EYES: No icterus, gaze conjugate NOSE: No evidence of epistaxis MOUTH: No lesions or candidiasis NECK: Supple LUNGS: CTA B/L, no wheezes, rales or rhonchi CHEST: Reproducible pain with light palpation to the anterior chest wall just below the right subclavian. No chest wall paradoxical movement. HEART: Regular, rate controlled ABDOMEN: Soft, NT, ND, BS Present EXTREMITIES: No LE edema, pedal pulses intact NEURO: [facility] Diagn[facility] Labs Results Past 24 Hours Test 09/27/17 18:09 09/28/17 02:05 09/28/17 08:46 Range/Units Thyroid Stimulating Hormone (TSH) 1.750 0.300-4.500 uIu/ml Random Cortisol 5.55 mcg/dl Urine Osmolality 158 500-800 mOms/kg Urine Random Sodium 30 mEq/L White Blood Count 4.15 4.8-10.8 K/uL Red Blood Count 3.59 4.2-5.4 M/uL Hemoglobin 11.6 12.0-16.0 g/dL Hematocrit 33.4 37-47 % Mean Corpuscular Volume 93.0 80-100 fL Mean Corpuscular Hemoglobin 32.3 25-34 pg Mean Corpuscular Hemoglobin Concent 34.7 32-36 g/dl Platelet Count 137 130-400 K/uL Mean Platelet Volume 10.6 7.4-10.4 fL Neutrophils (%) (Auto) 72.7 % Lymphocytes (%) (Auto) 17.3 % Monocytes (%) (Auto) 7.2 % Eosinophils (%) (Auto) 1.2 % Basophils (%) (Auto) 0.2 % Neutrophils # (Auto) 3.01 1.4-6.5 K/uL Lymphocytes # (Auto) 0.72 1.2-3.4 K/uL Monocytes # (Auto) 0.30 0.11-0.59 K/uL Eosinophils # (Auto) 0.05 0-0.5 K/uL Basophils # (Auto) 0.01 0-0.2 K/uL RDW Standard Deviation 50.7 36.4-46.3 fL RDW Coefficient of Variation 14.8 11.5-14.5 % Immature Granulocyte % (Auto) 1.4 % Immature Granulocyte # (Auto) 0.06 0.00-0.02 K/uL Sodium Level 137 136-145 mmol/L Potassium Level 3.5 3.5-5.1 mmol/L Chloride Level 105 98-107 mmol/L Carbon Dioxide Level 25 21-32 mmol/L Anion Gap 7.0 3-11 mmol/L Blood Urea Nitrogen 10 7-18 mg/dl Creatinine 0.64 0.60-1.20 mg/dl Est Creatinine Clear Calc Drug Dose 66.4 ml/min Estimated GFR () 91.7 Estimated GFR (Non- 79.1 BUN/Creatinine Ratio 15.3 10-20 Random Glucose 102 70-99 mg/dl Lactic Acid Level 1.8 0.4-2.0 mmol/L Calcium Level 7.9 8.5-10.1 mg/dl Impression Assessment and Plan PARAS * Identified on Bronchoscopy with Dr. Vaughn * Seen by Dr. Cooney on 09/26/17 * Plan is to start 2 drug regimen for 12 months with ongoing prednisone * Patient's ethambutol has been held due to inpatient hospitalization * We will see how Mrs. Reynolds is doing tomorrow. I suspect that we will be able to start her on her PARAS regimen but will ask Dr. Cooney to see her inpatient as he is much more familiar with her RIB FRACTURES * No acute or displaced rib fractures noted on rib films 09/26/17 * Lidocaine patch seems to be helping * Encourage incentive spirometer and splinting with a pillow as needed for pain * Continue gabapentin as needed * Ambulate as tolerated but OOB to chair at a minimum. DVT PROPHYLAXIS * No plans for interventional studies at this time * TEDs/SCDs * Ambulate as tolerated Thank you for including us in the care of this patient. We will follow along with you. Please refer to Dr. Chin's addendum for further recommendations Physician Supervision Note: I was present with Dusty JARRETT during the history and exam. I discussed the case with him and agree with the findings and plan as documented in the note. Any exceptions or clarifications are listed here: May be discharged home from a pulmonary standpoint To start therapy for PARAS Appointment setup with Dr Cooney for next week Documented By: Juan Chin MD
[2017-09-28] MEDS: TRAZODONE HCL 50 MG TAB PO SCH (21:27)
[2017-09-29 01:52] VITALS: PULSE 66; O2SAT 97
[2017-09-29] MEDS: ALBUT/IPRATROP 3MG/0.5MG NEB 3 ML VIAL INH SCH ×2 (01:52→07:03)
[2017-09-29 07:03] VITALS: BP 170/78; PULSE 65; PULSE 77; TEMP 36.7; O2SAT 97; O2SAT 98
--- NOTE | 2017-09-29 07:54 | PULMONARY CONSULTATION ---
DATE OF CONSULTATION: 09/29/2017 ADDENDUM Chart was reviewed. The patient was examined and I agree with the assessment and treatment plan as outlined by Dusty Gant. The patient's right anterior chest discomfort has abated according to her history this morning and she does not feel dyspneic at rest. She is no longer coughing. She is afebrile and exhibiting no signs of respiratory distress. The patient agrees after further conversation that she remains somewhat weakened and living at home is of concern. This concern has been voiced by family members and neighbors and I believe a short stay at a rehab facility, perhaps [facility], would be advantageous to Shweta overall recovery. I will discuss with the hospitalist this plan. I think we can start her therapy for PARAS at any time, but that treatment is not emergent. Spoke w pt's neighbor Morena who told me adaughter from [facility] is flying in to assess her mother's living situation.Pt has mild sleep apnea but poor sleep quality may be contributing to listlessness and AM confusion.Suspect underlying mild dementia.Hyponatremia an issue. Suggest rehab stay.Cleared for discharge from a cardiopulmonary standpoint. MTDD
[2017-09-29] MEDS: VORICONAZOLE 200 MG TAB PO SCH (08:14)
[2017-09-29] MEDS: BUDESONIDE/FORMOTEROL FUMARATE 160/4.5 60 PUFFS/INHALER INH SCH (08:14)
[2017-09-29] MEDS: ASPIRIN 81 MG ECTAB PO SCH (08:15)
[2017-09-29] MEDS: LIDODERM (LIDOCAINE) PATCH 5% TD SCH (08:16)
[2017-09-29 08:22] LABS: CALCIUM 8.5 mg/dl (8.5-10.1); CREATININE 0.67 mg/dl (0.60-1.20); POTASSIUM 4.2 mmol/L (3.5-5.1)
[2017-09-29] MEDS ORDERED: AZITHROMYCIN 250 MG TAB PO SCH (09:00)
--- NOTE | 2017-09-29 09:54 | Medical Student: [facility] ---
Med Student Progress Note Date of Service Sep 29, 2017. Subjective Pt evaluation today including: conversation w/ patient Patient is feeling much better this morning and states she has no pain. Is feeling stronger and feels she is able to ambulate well with minimal assistance. Per pulmonary she is able to be discharge today. Will wait for PT/ OT eval for final determination. Neighbor Morena at bedside. Review of Systems Constitutional: No fever, No chills ENT: No hearing loss Respiratory: No cough, No sputum Cardiac: No chest pain, No orthopnea Abdomen: No pain, No nausea Female : No dysuria Heme: No abnormal bleeding/bruising Objective Vital Signs Date Time Temp Pulse Resp B/P (MAP) Pulse Ox O2 Delivery O2 Flow Rate FiO2 09/29/17 07:55 Room Air 09/29/17 07:03 77 16 97 Room Air 09/29/17 07:03 36.7 65 18 170/78 (108) 98 Room Air 09/29/17 01:52 66 16 97 Room Air 09/29/17 00:00 Room Air 09/28/17 23:38 36.8 77 18 136/80 (98) 96 Room Air 09/28/17 19:21 72 16 96 Room Air 09/28/17 16:10 Room Air 09/28/17 15:36 36.5 79 18 123/71 (88) Room Air 09/28/17 14:11 68 16 98 Room Air Physical Exam General Appearance: WD/WN, no apparent distress Eyes: bilateral eyes normal inspection ENT: normal ENT inspection Neck: supple, no adenopathy Respiratory/Chest: chest non-tender, lungs clear, normal breath sounds Cardiovascular: regular rate, rhythm, no edema Abdomen: normal bowel sounds, non tender, soft Extremities: normal range of motion, non-tender Neurologic/Psychiatric: alert, normal mood/affect, oriented x 3 Skin: normal color Laboratory Results Last 24 Hours Test 09/29/17 07:39 Sodium Level 135 mmol/L Potassium Level 4.2 mmol/L Chloride Level 104 mmol/L Carbon Dioxide Level 24 mmol/L Anion Gap 7.0 mmol/L Blood Urea Nitrogen 14 mg/dl Creatinine 0.67 mg/dl Est Creatinine Clear Calc Drug Dose 63.4 ml/min Estimated GFR () 90.3 Estimated GFR (Non- 77.9 BUN/Creatinine Ratio 21.6 Random Glucose 102 mg/dl Calcium Level 8.5 mg/dl Assessment and Plan Assessment and Plan: Assessment: This is an 87-year-old female with a history of PARAS/pulmonary Aspergillosis and TIA who presented to the ED 09/27 with right sided pleuritic chest pain. DDx includes inflammation 2/2 current infection, pleural adhesion, costochondritis/ other MSK, rib fracture. Plan: Primary diagnosis: pleuritic chest pain due to inflammation 2/2 PARAS, Aspergillosis infection - Consult pulmonology - Dr. Cooney saw her this AM and says she is ready for discharge from pulm standpoint - Continue lidocaine patch, PRN toradol in hospital - will D/C home with script for Voltaren gel for pain relief along with short course of tramadol or meloxicam - Continue Voriconazole, ethambutol, azithromycin as prescribed. - Continue home inhaler regimen - No need for bronch at this time - Will wait for PT/OT eval for D/C planning - rehab vs home Epistaxis - Has been recurrent since her bronchoscopy two weeks ago - Mild anemia - can consult ENT for cauterization if this continues Hx of TIA - continue ASA - she is statin intolerant.
--- NOTE | 2017-09-29 10:58 | Consultant Recommendations ---
Inspector Tester Sorter Recommendations Date of Service Sep 29, 2017. Inspector Tester Sorter Recommendations Follow up with Dr. Cooney on 10/10/17 at 3:00 pm
[2017-09-29] MEDS ORDERED: AZIT-57 PO (11:57)
[2017-09-29] MEDS ORDERED: ETHA1TAB8 PO (11:57)
[2017-09-29] MEDS ORDERED: LDDP5 TD (11:57)
--- NOTE | 2017-09-29 12:04 | Discharge Instructions ---
Discharge Instructions Date of Service Sep 29, 2017. Admission Reason for Admission: Generalized Weakness, Shortness Of Breath Discharge Discharge Diagnosis / Problem: Pleuritic chest pain, hyponatremia Discharge Goals Goal(s): Improve disease control Activity Recommendations Activity Limitations: resume your previous activity . Instructions / Follow-Up Instructions / Follow-Up Please take your azithromycin, prednisone, voriconazole and ethambutol as prescribed by Dr. Cooney. The medications were called in by his office for you to machine operator hop picker at the pharmacy. His office will contact you with a follow up appointment Please have your blood drawn on Monday, results will go to Dr. Matthews. Current Hospital Diet Patient's current hospital diet: AHA Diet (Heart Healthy) Discharge Diet Recommended Diet: AHA Diet (Heart Healthy) Pending Studies Studies pending at discharge: no Laboratory Results Hemoglobin A1c Test 08/12/17 05:50 Range/Units Estimated Average Glucose 108 mg/dl Hemoglobin A1c 5.4 4.5-5.6 % Lipid Panel Test 08/11/17 21:44 Range/Units Triglycerides Level 67 0-150 mg/dl Cholesterol Level 187 0-200 mg/dl HDL Cholesterol 94 mg/dl Cholesterol/HDL Ratio 2.0 LDL Cholesterol, Calculated 80 mg/dl Medical Emergencies . Who to Call and When: Medical Emergencies: If at any time you feel your situation is an emergency, please call 911 immediately. . Non-Emergent Contact Non-Emergency issues call your: Primary Care Provider Call Non-Emergent contact if: you have a fever, you have any medication questions . . "Provider Documentation" section prepared by Betty Moon. . Refrigerator Repairman Recommendations Refrigerator Repairman Recommendations: Follow up with Dr. Cooney on 10/10/17 at 3:00 pm VTE Core Measure Inpt VTE Proph given/why not?: SCD's
--- NOTE | 2017-09-29 12:12 | Discharge Summary ---
Discharge Summary Date of Service Sep 29, 2017. Discharge Summary Admission Date: Sep 27, 2017 at 16:21 Discharge Date: Sep 29, 2017 Discharge Disposition: Home with services Principal Diagnosis: Hyponatremia, pleuritic chest pain Problems/Secondary Diagnoses: hx PARAS, Aspergillosis, hypogammaglobulinemia, Epistaxis, Hx of TIA Immunizations: Have You Had Influenza Vaccine: Yes Influenza Vaccine Date: Jun 18, 2013 History of Tetanus Vaccine?: Unknown Tetanus Immunization Date: Sep 20, 2004 History of Pneumococcal: Yes Pneumococcal Date: Jul 19, 2011 History of Hepatitis B Vaccine: Unknown Consultations: Dr. Cooney, Dusty Gant from pulmonology Medication Reconciliation New Medications: Ethambutol Hcl (Ethambutol Hcl) 400 Mg Tab 800 MG PO 2XWK for 30 Days, #20 DOSE Azithromycin (Azithromycin) 250 Mg Tab 500 MG PO MoFr@0900 for 30 Days, #16 TAB Lidocaine (Lidocaine) 1 Patch Tdsy 1 PATCH TD QAM for 7 Days, #7 PATCH Continued Medications: Aspirin (Aspirin Ec) 81 Mg Tab 81 MG PO DAILY Budesonide/Formoterol Fumarate (Symbicort 160/4.5 Inhaler) 120 Puffs/ Aero 2 PUFFS INH BID Ipratropium-Albuterol (Duoneb) 3 Ml Nebu 1 TREATMENT INH BID Meloxicam (Mobic) 7.5 Mg Tab 7.5 MG PO QAM Prednisone (Prednisone) 10 Mg Tab 5 MG PO DAILY TAPER DOSE. LAST DOSE IS 09/28/17. Trazodone Hcl (Trazodone) 50 Mg Tab 50 MG PO HS Voriconazole (Voriconazole) 200 Mg Tab 200 MG PO Q12 Discharge Exam ROS Constitutional: no chills, aches, sweats or fever Respiratory: no sob,cough, sputum, or wheezing Cardiac: no chest pain, palpitations, edema, orthopnea or lightheadedness GI: no abdominal pain, nausea, vomiting, diarrhea or constipation : no dysuria or hesitancy Extremities: no joint pain or weakness Skin: no rash All other systems reviewed and negative General: no distress Eyes: normal inspection, PERLL Respiratory: chest non tender, clear to auscultation, normal breath sounds, no respiratory distress, no accessory muscle use Cardiac: regular rate and rhythm, no rub or gallop, no murmur, no edema, no jvd GI/: active bowel sounds, no abd pain or tenderness, soft, non distended Extremities: normal range of motion, normal strength, non tender Neuro/Psych: alert and oriented x 3, normal mood and affect Skin: normal color, dry Hospital Course 87 y/o F Hx TIA, hypogammaglobulinemia, recent diagnosis of PARAS and pulmonary Aspergillosis. The pt presented with progressive weakness, SOB and pleuritic right upper chest wall pain. She underwent a bronchoscopy two weeks prior and stated she has had L sided nosebleeds most mornings since then. SOB and pleuritic CP, hx PARAS, Aspergillosis - consulted pulmonology - Incentive spirometry to encourage deep breaths despite pleurisy - encouraged home use - Continue lidocaine patch, home meloxicam - patient is pain free today - cont Voriconazole, ethambutol, azithromycin, prednisone as prescribed by pulmonology - continue Symbicort Hyponatremia - resolved - Na 135 today - Cortisol 5.5 last evening, TSH 1.75 - prp on Monday outpatient Epistaxis - has been recurrent since her bronchoscopy - no bleeding during this admission - if this recurs we may need an ENT consult Hx of TIA - cont ASA - she is statin intolerant. Home with home health per PT recommendation, she additionally has a daughter coming next week to stay with her for a month TOWER SWITCH OPERATOR Physician Supervision Note: I interviewed and examined the patient. Discussed with Betty Moon NP and agree with findings and plan as documented in the note. Any exceptions or clarifications are listed here: None pt has resolution of her chest pain, does not want new medications for pain and is agreeable to home health evaluation discussion of stopping or starting nsaids with timing of orthopedic pain injection for hip pain vitals reviewed car is regular, chest pain is slightly reproducible but patient does not want. chest wall pleuritic pain resolved will follow up with pulmonary ,medicine for PARAS therapy Documented By: Gallo Fine Total Time Spent: Greater than 30 minutes This includes examination of the patient, discharge planning, medication reconciliation, and communication with other providers. Discharge Instructions Please refer to the electronic Patient Visit Report (Discharge Instructions) for additional information. Follow-Up Dr. Cooney and pcp Additional Copies To Ora Matthews M.D.; Keith Cooney M.D.
[2017-09-29 12:41] VITALS: BP 170/78; PULSE 77; TEMP 36.7; O2SAT 98
== END 2017-09-29 13:20 | disposition home or self-care (01) ==
LOC: EDBD 13:40 → C.EDB 13:41 → C.MS2W 16:21 → ENRESERV 16:43
PROVIDERS: ADMIT Internal Medicine; ATTEND Internal Medicine
DX: E87.1 Hypo-osmolality and hyponatremia (principal); A31.0 Pulmonary mycobacterial infection; B44.1 Other pulmonary aspergillosis; D80.1 Nonfamilial hypogammaglobulinemia; R04.0 Epistaxis; Z86.73 Personal history of transient ischemic attack (TIA), and cerebral infarction without residual deficits; Z79.82 Long term (current) use of aspirin; Z79.899 Other long term (current) drug therapy; Z79.52 Long term (current) use of systemic steroids; Z80.0 Family history of malignant neoplasm of digestive organs; Z88.5 Allergy status to narcotic agent

== ENCOUNTER 2017-10-01 20:21 | Emergency (ER) | payer OTHER ==
[~2017-10-01 20:21] MED LIST changes: -ASPCH81X PO; +ASPI81TA28 PO; -ATRINSX INH; +AZIT-57 PO; -CALC1TAB27 PO; -CHOL1000 PO; -CLR10 PO; -CYAN100020 PO; +ETHA1TAB8 PO; -GABA100C13 PO; +IPRASOL4 INH; -IPRAT-ALBUT INH; +LDDP5 TD; -LEVO-366 PO; -MELATAB2 PO; +TRAZ50TA35 PO; -VNTHFA/IN INH
[2017-10-01 20:41] VITALS: TEMP 36.7; Ht 165.1 cm
[2017-10-01] MEDS ORDERED: TIOT1SPR INH (21:01)
[2017-10-01] MEDS ORDERED: OXYMETAZOLINE HCL 0.05% NA SPR 15 ML BTL ONE (22:00)
[2017-10-01 22:20] LABS: BASO % 0.4 %; BASO ABS # 0.02 K/uL (0-0.2); EOS % 1.7 %; EOS ABS # 0.08 K/uL (0-0.5); HEMATOCRIT 38.4 % (37-47); HEMOGLOBIN 13.1 g/dL (12.0-16.0); IG# 0.08 K/uL (0.00-0.02); LYMPH % 19.4 %; MEAN CELL VOLUME 93.2 fL (80-100); MEAN CORPUSCULAR HEMOGLOBIN 31.8 pg (25-34); MEAN CORPUSCULAR HGB CONC 34.1 g/dl (32-36); MEAN PLATELET VOLUME 10.3 fL (7.4-10.4); MONO % 6.7 %; MONO ABS # 0.31 K/uL (0.11-0.59); NEUT % 70.1 %; NEUT ABS # 3.24 K/uL (1.4-6.5); PLATELET COUNT 167 K/uL (130-400); RED CELL DISTRIBUTION WIDTH CV 14.8 % (11.5-14.5); RED CELL DISTRIBUTION WIDTH SD 50.4 fL (36.4-46.3); WHITE BLOOD COUNT 4.63 K/uL (4.8-10.8)
[2017-10-01 22:36] LABS: INR 0.9 (0.9-1.1); PTT PATIENT 22.7 SECONDS (21.0-31.0)
[2017-10-01 23:03] VITALS: BP 128/71; PULSE 70; O2SAT 97
--- NOTE | 2017-10-02 04:46 | EMERGENCY ROOM VISIT NOTE ---
History First contact with patient: 21:35 Chief Complaint: NOSE BLEED (MINOR) Stated Complaint: nosebleed History of Present Illness The patient is a 87 year old female who presents to the Emergency Room with complaints of intermittent nosebleeds for the past week. Patient was recently discharged from the hospital. Patient states since then she has been feeling better. Patient was on a daily baby aspirin but is suppose to have a hip injection in a few days and was told to hold this. She does take Mobic daily. No other blood thinners. Patient states tonight she had a nosebleed for over an hour. This is now resolved. Patient denies chest pain, dyspnea, fever, chills, weakness, unexplained bruising, lightheadedness or dizziness. Patient states he feels normal. She has an appointment this week with Dr. Oliva for her intermittent nosebleeds. Review of Systems An 10 system review of systems was completed with positives and pertinent negatives listed in the HPI. Past Medical/Surgical History Medical Problems: (1) section (2) Hysterectomy (3) PARAS (mycobacterium avium-intracellulare) (4) Shortness of breath (5) Shoulder surgery (6) TIA (transient ischemic attack) Social History Smoking Status: Never Smoker Drug Use: none Marital Status: Occupation Status: retired Current/Historical Medications Scheduled Aspirin (Aspirin Ec), 81 MG PO DAILY Azithromycin (Azithromycin), 500 MG PO MoFr@0900 Budesonide/Formoterol Fumarate (Symbicort 160/4.5 Inhaler), 2 PUFFS INH BID Ethambutol Hcl (Ethambutol Hcl), 800 MG PO 2XWK Ipratropium-Albuterol (Duoneb), 1 TREATMENT INH BID Meloxicam (Mobic), 7.5 MG PO QAM Prednisone (Prednisone), 5 MG PO DAILY Tiotropium [place] (Spiriva Respimat), 2 PUFF INH DAILY Trazodone Hcl (Trazodone), 50 MG PO HS Voriconazole (Voriconazole), 200 MG PO Q12 Physical Exam Vital Signs Date Time Temp Pulse Resp B/P (MAP) Pulse Ox O2 Delivery O2 Flow Rate FiO2 10/01/17 23:03 70 18 128/71 97 10/01/17 20:41 36.7 78 18 136/80 98 Room Air Physical Exam VITALS: Vitals are noted on the nurse's note and reviewed by myself. Vital signs stable. GENERAL: Pleasant female, in no acute distress, nondiaphoretic, well-developed well-nourished. SKIN: Capillary reflex less than 2 seconds. No bruising HEENT: Normocephalic. PERRLA. EOMI. Nares patent. Dried blood in the right nare. No septal hematoma. Mucous membranes moist. Neck is supple without nuchal rigidity. HEART: Regular rate and rhythm 2/6 systolic murmur LUNGS: Clear to auscultation bilaterally without wheezes, rales or rhonchi. No retractions or accessory muscle use. ABDOMEN: Positive bowel sounds x 4. Normal tympanic percussion. Soft, nontender, without masses or organomegaly. Berry sign negative. No guarding or rebound tenderness. MUSCULOSKELETAL: No gross musculoskeletal defects. NEURO: Patient was alert and oriented to person place and time. No focal neurological deficits. Medical Decision & Procedures Laboratory Results 10/01/17 22:10 Red Blood Count 4.12, Mean Corpuscular Volume 93.2, Mean Corpuscular Hemoglobin 31.8, Mean Corpuscular Hemoglobin Concent 34.1, Mean Platelet Volume 10.3, Neutrophils (%) (Auto) 70.1, Lymphocytes (%) (Auto) 19.4, Monocytes (%) (Auto) 6.7, Eosinophils (%) (Auto) 1.7, Basophils (%) (Auto) 0.4, Neutrophils # (Auto) 3.24, Lymphocytes # (Auto) 0.90, Monocytes # (Auto) 0.31, Eosinophils # (Auto) 0.08, Basophils # (Auto) 0.02 Test 10/01/17 22:10 White Blood Count 4.63 K/uL (4.8-10.8) Red Blood Count 4.12 M/uL (4.2-5.4) Hemoglobin 13.1 g/dL (12.0-16.0) Hematocrit 38.4 % (37-47) Mean Corpuscular Volume 93.2 fL (80-100) Mean Corpuscular Hemoglobin 31.8 pg (25-34) Mean Corpuscular Hemoglobin Concent 34.1 g/dl (32-36) Platelet Count 167 K/uL (130-400) Mean Platelet Volume 10.3 fL (7.4-10.4) Neutrophils (%) (Auto) 70.1 % Lymphocytes (%) (Auto) 19.4 % Monocytes (%) (Auto) 6.7 % Eosinophils (%) (Auto) 1.7 % Basophils (%) (Auto) 0.4 % Neutrophils # (Auto) 3.24 K/uL (1.4-6.5) Lymphocytes # (Auto) 0.90 K/uL (1.2-3.4) Monocytes # (Auto) 0.31 K/uL (0.11-0.59) Eosinophils # (Auto) 0.08 K/uL (0-0.5) Basophils # (Auto) 0.02 K/uL (0-0.2) RDW Standard Deviation 50.4 fL (36.4-46.3) RDW Coefficient of Variation 14.8 % (11.5-14.5) Immature Granulocyte % (Auto) 1.7 % Immature Granulocyte # (Auto) 0.08 K/uL (0.00-0.02) Prothrombin Time 9.7 SECONDS (9.0-12.0) Prothromb Time International Ratio 0.9 (0.9-1.1) Activated Partial Thromboplast Time 22.7 SECONDS (21.0-31.0) Partial Thromboplastin Ratio 0.9 ED Course Prior records/ancillary studies reviewed. Triage Nursing notes reviewed. Additional history obtained from family. The patient's history was concerning for epistaxis. Differential diagnosis: Etiologies such as anterior epistaxis, coagulopathy, traumatic injury, fracture , septal hematoma, posterior epistaxis as well as other pathologies were entertained. Physical examination findings: As above. Anterior bleeding source. ER treatment provided: Patient was observed On reassessment the patient felt better. Diagnostics interpreted by me: The labs revealed stable H&H. Normal coags This appears to be consistent with epistaxis that is now resolved. Patient had multiple episodes this week and a prolonged episode today so blood work was obtained. This is unremarkable. Family was advised to use Erygel to the nasal passageways to keep them moist. They were advised that the nosebleed recurs to apply Afrin and nasal clamp and if this does not resolve in 15 minutes and come to the ER. They are advised to follow-up this week as scheduled ENT for further evaluation and treatment for her intermittent nosebleeds this past week. They are advised to hold the Mobic and aspirin this week until seen by the ENT doctor. They are advised to return to the ER immediately for prolonged nosebleed, chest pain, dyspnea, weakness, worsening signs or symptoms or as needed. Patient was neurovascularly and neurologically intact. She is well appearing. By the evaluation outlined above emergent etiologies such as coagulopathy, traumatic injury, fracture, septal hematoma, posterior epistaxis, as well as others were deemed relatively unlikely. The pt informed about the findings as listed above. All questions were answered and pleased with the treatment. Return instructions were outlined and the patient was discharged in stable condition. Referral: The patient was referred to her ENT as scheduled for a recheck of the current condition. Case reviewed with my attending Medical Decision As above Medication Reconcilliation Current Medication List: was personally reviewed by me Blood Pressure Screening Patient's blood pressure: Normal blood pressure Impression Primary Impression: Epistaxis Departure Information Dispostion Home / Self-Care Condition GOOD Forms WORK / SCHOOL INSTRUCTIONS, HOME CARE DOCUMENTATION FORM, IMPORTANT VISIT INFORMATION Patient Instructions Nosebleeds - [facility], [facility] Additional Instructions Continue to hold your aspirin and Mobic until cleared by ENT. If your nose starts to bleed again, then apply the Afrin and nasal clamp and wait 15 minutes. If it does not resolve then come to the ER. Avoid scratching, rubbing, picking, or blowing your nose. The short goods drier your nasal passages the more likely they are to bleed. The following two products are available [id number] at most drug stores/pharmacies. [place] nasal spray or similar generic saline spray to keep the nose moist 3 to 4 times a day Or continue your Erygel. If bleeding recurs apply direct pressure for an uninterrupted 20 minutes. On and off pressure is much less effective because it will disturb the clots that are forming. If the bleeding is still a problem after 20 minutes or is so heavy despite the pressure return to the emergency department. Continue current medications. Follow-up with your ENT as scheduled this week for a recheck of your current condition.
== END 2017-10-01 23:04 | disposition home or self-care (01) ==
LOC: EDBD 20:21 → C.EDA 20:22
DX: R04.0 Epistaxis (principal); Z90.710 Acquired absence of both cervix and uterus; Z86.73 Personal history of transient ischemic attack (TIA), and cerebral infarction without residual deficits; Z79.82 Long term (current) use of aspirin; Z79.899 Other long term (current) drug therapy

== ENCOUNTER → 2017-10-20 | Outpatient (CLI) | payer OTHER ==
[~2017-10-20] MED LIST changes: -LDDP5 TD; +TIOT1SPR INH
--- NOTE | 2017-10-20 15:03 | DIAGNOSTIC IMAGING REPORT ---
L INJ MAJOR JNT SHLDR,HIP,KNEE CLINICAL HISTORY: LFT HIP DJDpain COMPARISON STUDY: 06/22/2017 FLUOROSCOPY TIME: 10 seconds. FINDINGS: Following description of procedure and informed consent, a 22-gauge needle was inserted to the left hip joint space. Test injection confirmed its intra-articular location. This is followed by a therapeutic steroid injection. There are no complications. IMPRESSION: Successful therapeutic injection left hip. No complications. The above report was generated using voice recognition software. It may contain grammatical, syntax or spelling errors. Electronically signed by: Tuan Fuentes M.D. 10/20/2017 3:01 PM Dictated Date/Time: 10/20/2017 3:00 PM
== END | disposition home or self-care (01) ==
LOC: C.RADBC 12:53
PROVIDERS: ATTEND Orthopaedic Surgery
DX: M16.12 Unilateral primary osteoarthritis, left hip (principal)

== ENCOUNTER → 2017-11-03 | Outpatient (CLI) | payer OTHER ==
[2017-11-03 12:50] LABS: BASO % 0.6 %; BASO ABS # 0.02 K/uL (0-0.2); EOS % 2.7 %; EOS ABS # 0.09 K/uL (0-0.5); HEMATOCRIT 35.5 % (37-47); HEMOGLOBIN 12.3 g/dL (12.0-16.0); IG# 0.01 K/uL (0.00-0.02); LYMPH % 28.2 %; LYMPH ABS # 0.94 K/uL (1.2-3.4); MEAN CELL VOLUME 93.2 fL (80-100); MEAN CORPUSCULAR HEMOGLOBIN 32.3 pg (25-34); MEAN CORPUSCULAR HGB CONC 34.6 g/dl (32-36); MONO % 7.5 %; MONO ABS # 0.25 K/uL (0.11-0.59); NEUT % 60.7 %; NEUT ABS # 2.02 K/uL (1.4-6.5); PLATELET COUNT 154 K/uL (130-400); RED CELL DISTRIBUTION WIDTH CV 13.9 % (11.5-14.5); RED CELL DISTRIBUTION WIDTH SD 47.6 fL (36.4-46.3); WHITE BLOOD COUNT 3.33 K/uL (4.8-10.8)
[2017-11-03 13:54] LABS: ALBUMIN 3.6 gm/dl (3.4-5.0); ALT/SGPT 25 U/L (12-78); AST/SGOT 17 U/L (15-37); BLOOD UREA NITROGEN 18 mg/dl (7-18); CALCIUM 9.1 mg/dl (8.5-10.1); CARBON DIOXIDE 27 mmol/L (21-32); CREATININE 0.75 mg/dl (0.60-1.20); GLUCOSE 80 mg/dl (70-99); POTASSIUM 4.3 mmol/L (3.5-5.1); SODIUM 136 mmol/L (136-145)
[2017-11-03 14:07] LABS: ALKALINE PHOSPHATASE 45 U/L (45-117); TOTAL PROTEIN 6.1 gm/dl (6.4-8.2)
== END | disposition home or self-care (01) ==
LOC: C.LABBFT 10:36
PROVIDERS: ATTEND Internal Medicine
DX: D80.1 Nonfamilial hypogammaglobulinemia (principal); R60.9 Edema, unspecified

== ENCOUNTER → 2017-11-21 | Outpatient (CLI) | payer OTHER ==
--- NOTE | 2017-11-21 16:00 | DIAGNOSTIC IMAGING REPORT ---
RIGHT LOWER EXTREMITY VENOUS DOPPLER HISTORY: M79.89 Right leg [id number] COMPARISON STUDY: None. FINDINGS: There is normal compressibility, flow, and augmentation within the right lower extremity deep venous system. IMPRESSION: No DVT within the right lower extremity Electronically signed by: Elan Julian M.D. 11/21/2017 3:59 PM Dictated Date/Time: 11/21/2017 3:58 PM
== END | disposition home or self-care (01) ==
LOC: C.ULTRBC 15:21
PROVIDERS: ATTEND Internal Medicine
DX: M79.89 Other specified soft tissue disorders (principal)

== ENCOUNTER → 2017-11-21 | Outpatient (CLI) | payer OTHER ==
[2017-11-21 15:21] LABS: BLOOD UREA NITROGEN 21 mg/dl (7-18); CALCIUM 9.1 mg/dl (8.5-10.1); CARBON DIOXIDE 28 mmol/L (21-32); GLUCOSE 93 mg/dl (70-99); POTASSIUM 4.4 mmol/L (3.5-5.1); SODIUM 136 mmol/L (136-145)
[2017-11-22 06:17] LABS: HEMOGLOBIN A1C 5.2 % (4.5-5.6)
== END | disposition home or self-care (01) ==
LOC: C.LABBFT 10:20
PROVIDERS: ATTEND Internal Medicine
DX: Z00.00 Encounter for general adult medical examination without abnormal findings (principal); E78.00 Pure hypercholesterolemia, unspecified; E07.9 Disorder of thyroid, unspecified; R73.01 Impaired fasting glucose; M85.80 Other specified disorders of bone density and structure, unspecified site; R60.9 Edema, unspecified